=== PATIENT | female | born 1945 | race Caucasian/White ===

== ENCOUNTER 2017-09-19 08:50 | Emergency (ER) | payer MEDICARE ==
[2017-09-19] MEDS ORDERED: SODIUM CHLORIDE 0.9% 1,000 ML IV STA (09:10)
[2017-09-19] MEDS ORDERED: ONDANSETRON 4 MG/2 ML VIAL IVP STA (09:10)
[2017-09-19] MEDS ORDERED: PANTOPRAZOLE 40 MG/10 ML VIAL IVP STA (09:13)
[2017-09-19] MEDS ORDERED: ORPHENADRINE 30 MG/ML 2 ML VIAL IVP STA (09:14)
--- NOTE | 2017-09-19 09:17 | ED ---
Nausea/Vomiting/Diarrhea HPI - General Chief complaint: Nausea/Vomiting/Diarrhea Stated complaint: Fall, Side Pain, Vomiting Time Seen by Provider: 09/19/17 09:01 Source: patient, RN notes reviewed, old records reviewed Mode of arrival: ambulatory Limitations: no limitations - History of Present Illness Initial comments: This is a 71-year-old female presents emergency Department chief complaint of a fall yesterday. Patient reports that she tripped out of her flower garden and landed on her left knee and her left ribs. Patient states that she had pain with movement. Patient was concerned because after the fall she had an episode of brown vomiting. She states that it subsided and had a second episode again today. Patient was concerned if it was associated with the fall. No history of ulcers. She does have history of GERD. Patient states that her pain is towards the left side of her abdomen. She denies any changes in urine or stools. Patient states that the pain is worse with taking a deep breath or chills and hit her left knee and does have some abrasions over the knee. She has no significant pain with ambulation. Patient surgical history includes cholecystectomy. - Related Data Home Medications Medication Instructions Recorded Confirmed Aspirin 81 mg PO DAILY 07/12/13 09/19/17 Cholecalciferol [Vitamin D3] 1,000 unit PO DAILY 07/12/13 09/19/17 Fenofibrate Nanocrystallized 145 mg PO DAILY 07/12/13 09/19/17 [Tricor] Multivitamins, Thera [Multivitamin] 1 tab PO DAILY 07/12/13 09/19/17 Pioglitazone HCl [Actos] 45 mg PO DAILY 07/12/13 09/19/17 Simvastatin [Zocor] 20 mg PO HS 07/12/13 09/19/17 glyBURIDE/METFORMIN HCL 1 tab PO BID 07/12/13 09/19/17 [Glucovance 2.5-500 mg Tablet] Exenatide Microspheres [Bydureon 2 mg SQ MO 09/19/17 09/19/17 Pen] Ranitidine HCl [Zantac] 150 mg PO BID 09/19/17 09/19/17 Previous Rx's Medication Instructions Recorded Ciprofloxacin HCl [Cipro] 500 mg PO Q12HR 10 Days tab 09/19/17 Hydrocodone/Acetaminophen [[place] 1 tab PO Q6HR PRN 3 Days #12 tab 09/19/17 5-325] Ondansetron Odt [Zofran Odt] 4 mg PO Q8HR PRN #12 tab 09/19/17 metroNIDAZOLE [Flagyl] 500 mg PO TID #30 tab 09/19/17 Allergies Allergy/AdvReac Type Severity Reaction Status Date / Time No Known Allergies Allergy Verified 09/19/17 09:26 Review of Systems ROS Statement: Those systems with pertinent positive or pertinent negative responses have been documented in the HPI. ROS Other: All systems not noted in ROS Statement are negative. Past Medical History Past Medical History: Diabetes Mellitus, GERD/Reflux, Hyperlipidemia, Osteoarthritis (OA) History of Any Multi-Drug Resistant Organisms: None Reported Past Surgical History: Cholecystectomy Past Anesthesia/Blood Transfusion Reactions: No Reported Reaction Past Psychological History: No Psychological Hx Reported Smoking Status: Never smoker Past Alcohol Use History: None Reported Past Drug Use History: None Reported - Past Family History Sister(s) Family Medical History: Cancer General Exam - General Exam Comments Initial Comments: This is a 71-year-old female. Alert and oriented. No significant distress. Limitations: no limitations General appearance: alert, in no apparent distress Head exam: Present: atraumatic, normocephalic, normal inspection Eye exam: Present: normal appearance, PERRL, EOMI. Absent: scleral icterus, conjunctival injection, periorbital swelling ENT exam: Present: normal exam, mucous membranes moist Neck exam: Present: normal inspection. Absent: tenderness, meningismus, lymphadenopathy Respiratory exam: Present: normal lung sounds bilaterally. Absent: respiratory distress, wheezes, rales, rhonchi, stridor Cardiovascular Exam: Present: regular rate, normal rhythm, normal heart sounds. Absent: systolic murmur, diastolic murmur, rubs, gallop, clicks GI/Abdominal exam: Present: soft, tenderness (Left upper quadrant tenderness.), normal bowel sounds. Absent: distended, guarding, rebound, rigid Extremities exam: Present: normal inspection, full ROM, normal capillary refill , other (Patient has small abrasion and ecchymosis over the left knee. Full range of motion noted. Normal sensation and pulses distally.). Absent: tenderness, pedal edema, joint swelling, calf tenderness Back exam: Present: normal inspection Neurological exam: Present: alert, oriented X3, CN II-XII intact Psychiatric exam: Present: normal affect, normal mood Skin exam: Present: warm, dry, intact, normal color. Absent: rash Course Vital Signs 09/19/17 09/19/17 08:52 11:58 Temperature 98.1 F 97.8 F Pulse Rate 94 82 Respiratory 18 16 Rate Blood Pressure 179/70 158/60 O2 Sat by Pulse 98 97 Oximetry Medical Decision Making - Medical Decision Making 71-year-old female presents emergency department today complaining of a fall on her left side yesterday. She also states she had an episode of vomiting last night. She reports it seemed to be somewhat dark. No vomiting upon arriving to the emergency department. She complains of some left-sided rib pain and epigastric abdominal pain. She has no evidence of bruising over the abdomen. She doesn't some upper quadrant tenderness. Lab work was obtained and given nausea medicine as well as a muscle relaxer. X-ray shows evidence of a left rib fracture. No evidence of pneumothorax. A mild elevation of her pancreatic enzymes. No previous lab work to compare from. She is to diabetic. Patient was given a CT abdomen and pelvis contrast. There is evidence of some mild diverticulitis. They also made mention of a dilated biliary system however this could be postsurgical recommended correlation with lab studies. Her liver enzymes are within normal limits. The bilirubin was stable. I believe the child ductal dilation is most likely related to postsurgical. I did recommend that she follow up with primary care provider to have her lipase and liver enzymes and pancreatic enzymes rechecked in 48 hours. At this time I will discharge the Patient with pain medication to treat for the mild diverticulitis as well as the rib fracture. Discussed the importance of taking deep breaths to avoid pneumonia. We'll also treat with diverticulitis with Cipro and Flagyl and Zofran. I discussed return parameters. Patient agrees to treatment plan will comply. Return parameters were discussed. Patient left in good spirits. - Lab Data Result diagrams: 09/19/17 09:15 09/19/17 09:15 Lab Results 09/19/17 09/19/17 09/19/17 Range/Units 09:15 09:15 09:15 WBC 6.4 (3.8-10.6) k/uL RBC 4.31 (3.80-5.40) m/uL Hgb 12.8 (11.4-16.0) gm/dL Hct 39.6 (34.0-46.0) % MCV 91.8 (80.0-100.0) fL MCH 29.6 (25.0-35.0) pg MCHC 32.3 (31.0-37.0) g/dL RDW 13.5 (11.5-15.5) % Plt Count 227 (150-450) k/uL Neutrophils % 71 % Lymphocytes % 14 % Monocytes % 8 % Eosinophils % 3 % Basophils % 0 % Neutrophils # 4.6 (1.3-7.7) k/uL Lymphocytes # 0.9 L (1.0-4.8) k/uL Monocytes # 0.5 (0-1.0) k/uL Eosinophils # 0.2 (0-0.7) k/uL Basophils # 0.0 (0-0.2) k/uL Sodium 140 (137-145) mmol/L Potassium 4.5 (3.5-5.1) mmol/L Chloride 101 (98-107) mmol/L Carbon Dioxide 33 H (22-30) mmol/L Anion Gap 6 mmol/L BUN 24 H (7-17) mg/dL Creatinine 1.01 (0.52-1.04) mg/dL Est GFR (CKD-EPI)AfAm 65 (>60 ml/min/1.73 sqM) Est GFR (CKD-EPI)NonAf 57 (>60 ml/min/1.73 sqM) Glucose 124 H (74-99) mg/dL Calcium 13.2 H* (8.4-10.2) mg/dL Total Bilirubin 0.3 (0.2-1.3) mg/dL AST 34 (14-36) U/L ALT 34 (9-52) U/L Alkaline Phosphatase 44 (38-126) U/L Total Protein 6.6 (6.3-8.2) g/dL Albumin 4.0 (3.5-5.0) g/dL Amylase 129 H (30-110) U/L Lipase 409 H (23-300) U/L Urine Color Light Yellow Urine Appearance Cloudy H (Clear) Urine pH 7.5 (5.0-8.0) Ur Specific [place] 1.008 (1.001-1.035) Urine Protein Negative (Negative) Urine Glucose (UA) Negative (Negative) Urine Ketones Negative (Negative) Urine Blood Negative (Negative) Urine Nitrite Negative (Negative) Urine Bilirubin Negative (Negative) Urine Urobilinogen <2.0 (<2.0) mg/dL Ur Leukocyte Esterase Moderate H (Negative) Urine WBC 6 H (0-5) /hpf Ur Squamous Epith Cells <1 (0-4) /hpf Amorphous Sediment Occasional H (None) /hpf Urine Mucus Rare H (None) /hpf - Radiology Data Radiology results: report reviewed Nondisplaced acute fracture of the lateral margin of the sixth rib on the left without adjacent ulnar contusion or pneumothorax.. Colonic diverticulosis very minimal fat stranding in the distal descending colon and sigmoid colon's just and compensated diverticulitis. Mild intrahepatic bili or ductal dilation with extra hepatic biliary ductal dilation most likely postsurgical. However correlation with serum lab values is recommended to exclude radiopaque choledocholithiasis. Disposition Clinical Impression: Rib fracture, Diverticulitis, Elevated lipase, Fall Disposition: HOME SELF-CARE Condition: Good Instructions: Diverticulitis (ED), Rib Fracture (ED) Additional Instructions: Patient advised to take 10 deep breaths an hour due to the rib fracture. Take Motrin and use pain medicine as prescribed. Patient should complete the antibiotic prescription. Follow-up with primary care provider within the next 1 -2 days for reevaluation. Recommended repeating liver enzymes and pancreatic enzymes. Return to the emergency department if any alarming signs or symptoms occur. Prescriptions: Ciprofloxacin HCl [Cipro] 500 mg PO Q12HR 10 Days tab Hydrocodone/Acetaminophen [[place] 5-325] 1 tab PO Q6HR PRN 3 Days #12 tab PRN Reason: Pain metroNIDAZOLE [Flagyl] 500 mg PO TID #30 tab Ondansetron Odt [Zofran Odt] 4 mg PO Q8HR PRN #12 tab PRN Reason: Nausea Is patient prescribed a controlled substance at d/c from ED?: Yes When asked, does pt state using other controlled substances?: Yes If prescribed controlled substance>3 days was MAPS reviewed?: Prescribed <3 Days If opioid is for acute pain is fill amount 7 days or less?: Yes If Rx opioid, was Start Talking consent form obtained?: Yes Referrals: Indra Olsen MD [Primary Care Provider] - 1-2 days Time of Disposition: 12:05
[2017-09-19 09:40] LABS: Basophils % (A) 0 %; Eosinophils # (A) 0.2 k/uL (0-0.7); Eosinophils % (A) 3 %; HCT 39.6 % (34.0-46.0); HGB 12.8 gm/dL (11.4-16.0); Lymphocytes # (A) 0.9 k/uL (1.0-4.8); Lymphocytes % (A) 14 %; MCH 29.6 pg (25.0-35.0); MCHC 32.3 g/dL (31.0-37.0); MCV 91.8 fL (80.0-100.0); Mean Platelet Volume 7.6; Monocytes # (A) 0.5 k/uL (0-1.0); Monocytes % (A) 8 %; Neutrophils # (A) 4.6 k/uL (1.3-7.7); Neutrophils % (A) 71 %; Platelet Count 227 k/uL (150-450); RBC 4.31 m/uL (3.80-5.40); RDW 13.5 % (11.5-15.5); WBC 6.4 k/uL (3.8-10.6)
[2017-09-19 09:51] LABS: Amorphous Sediment,Urine Occasional /hpf; Appearance,Urine Cloudy (Clear); Bilirubin,Urine Negative (Negative); Blood,Urine Negative (Negative); Color,Urine Light Yellow; Glucose,Urine (UA) Negative (Negative); Ketones,Urine Negative (Negative); Leukocyte Esterase,Urine Moderate (Negative); Mucus,Urine Rare /hpf; Nitrite,Urine Negative (Negative); PH, Urine 7.5 (5.0-8.0); Protein,Urine Negative (Negative); Specific Gravity,Urine 1.008 (1.001-1.035); Squamous Epithelial Cell,Urine <1 /hpf (0-4); Urobilinogen,Urine <2.0 mg/dL (<2.0); WBC,Urine 6 /hpf (0-5)
[2017-09-19 09:54] LABS: Potassium 4.5 mmol/L (3.5-5.1); Total Bilirubin 0.3 mg/dL (0.2-1.3); Total Protein 6.6 g/dL (6.3-8.2)
--- NOTE | 2017-09-19 09:56 | XR ---
EXAMINATION TYPE: XR ribs LT w pa chest xray DATE OF EXAM: 09/19/2017 COMPARISON: 05/14/2011 HISTORY: Pain post fall TECHNIQUE: Frontal view the chest and 4 views of the left ribs are submitted. FINDINGS: There is mild prominence of the right hilum. There is no consolidation or pneumothorax. There are slight deformity of the lateral left seventh rib. Hypertrophic change of the spine noted there is atherosclerotic change aorta. Arthropathy of the shou lders seen. Surgical clips in the abdomen. Calcification overlying the left upper quadrant may repres ent a splenic artery aneurysm. IMPRESSION: Findings are suggestive of a rib deformity lateral seventh rib. Hairline fracture in the differential diagnosis correlate clinically.
--- NOTE | 2017-09-19 09:58 | XR ---
EXAMINATION TYPE: XR knee complete LT DATE OF EXAM: 09/19/2017 COMPARISON: NONE HISTORY: Pain TECHNIQUE: Four views are submitted. FINDINGS: There is narrowing of the joint spaces with evidence of chondrocalcinosis. Hypertrophic spurring is n oted and there is a small suprapatellar joint effusion. Osseous structures are intact. No acute frac ture seen. IMPRESSION: 1. No acute fracture or dislocation. 2. Correlate for osteoarthritis.
[2017-09-19 10:01] LABS: Calcium 13.2 mg/dL (8.4-10.2)
[2017-09-19] MEDS ORDERED: SODIUM CHLORIDE 0.9% 1,000 ML IV SCH (10:15)
--- NOTE | 2017-09-19 11:18 | CT ---
EXAMINATION TYPE: CT abdomen pelvis w con DATE OF EXAM: 09/19/2017 HISTORY: Fall, Lt sided pain CT DLP: 1771.0mGycm Automated Exposure Control for Dose Reduction was Utilized. CONTRAST: CT scan of the abdomen and pelvis is performed with IV Contrast, patient injected with 100 mL of Isov ue 300. COMPARISON: None. FINDINGS: LUNG BASES: There is minimal bibasilar subsegmental dependent atelectasis seen. There is a moderate h iatal hernia and herniation of mesenteric fat and vasculature. There is circumferential distal esopha geal mucosal thickening measuring up to 1.0 cm, at least partially related to incomplete distention. LIVER/GB: Very mild intrahepatic biliary ductal dilatation is seen with extrahepatic biliary ductal d ilatation and surgical gallbladder absence. Focal dilatation is likely postoperative correlation with serum laboratory values is recommended to exclude nonradiopaque choledocholithiasis. PANCREAS: No significant abnormality is seen. 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 ADRENALS: No significant abnormality is seen. KIDNEYS: There is a nonobstructing left upper poler 3 mm calculus and too small to accurately charact erize 4 mm left midpole lateral cortical renal lesion. No hydronephrosis bilaterally. BOWEL: Descending duodenal diverticulum is incidentally noted. There are numerous colonic diverticula with very mild pericolonic fat stranding of the descending and sigmoid colon on series 7 image 32. UTERUS/ADNEXA: Numerous calcifications are seen at the distal aspect of the gonadal veins bilaterally , right greater than left with diminutive ovarian residual tissue. Uterine atrophy is also noted. LYMPH NODES: No greater than 1cm abdominal or pelvic lymph nodes are appreciated. OSSEOUS STRUCTURES: There is a nondisplaced acute fracture of the lateral margin of rib 6 on the left . No adjacent pulmonary contusion or pneumothorax is identified in the visualized lungs. Multilevel m oderate degenerative changes of the lumbosacral spine are seen. IMPRESSION: 1. Nondisplaced acute fracture of the lateral margin of rib 6 on the left without adjacent pulmonary contusion or pneumothorax seen. 2. Pancolonic diverticulosis with very minimal fat stranding of the distal descending colon and sigmo id colon suggesting mild uncomplicated diverticulitis. 3. Mild intrahepatic biliary ductal dilatation and extra hepatic biliary ductal dilatation, likely po stsurgical. However correlation with serum laboratory values is recommended to exclude nonradiopaque choledocholithiasis.
[2017-09-19 11:59] VITALS: BP 158/60; PULSE 82; RESP 16; TEMP 97.8
== END 2017-09-19 12:27 | disposition home or self-care (01) ==
LOC: EC 08:50
DX: S22.32XA Fracture of one rib, left side, initial encounter for closed fracture (principal); S80.02XA Contusion of left knee, initial encounter; K57.32 Diverticulitis of large intestine without perforation or abscess without bleeding; R74.8 Abnormal levels of other serum enzymes; E11.9 Type 2 diabetes mellitus without complications; K21.9 Gastro-esophageal reflux disease without esophagitis; E78.5 Hyperlipidemia, unspecified; M19.90 Unspecified osteoarthritis, unspecified site; Z90.49 Acquired absence of other specified parts of digestive tract; Z79.82 Long term (current) use of aspirin; Z79.84 Long term (current) use of oral hypoglycemic drugs; Z79.899 Other long term (current) drug therapy; W01.0XXA Fall on same level from slipping, tripping and stumbling without subsequent striking against object, initial encounter
CPT/HCPCS: 99285; 96374; 96375 ×2; 96361 ×3; 36415; 80053; 82150; 83690; 85025; 81001; 71101; 73562; 74177; J2360; J2405; C9113; Q9967

== ENCOUNTER → 2017-11-20 | Outpatient (CLI) | payer MEDICARE ==
--- NOTE | 2017-11-22 12:56 | MM ---
Reason for exam: screening (asymptomatic). Last mammogram was performed 1 year and 11 months ago. History: Patient is postmenopausal. Took hormonal contraceptives for 5 years. Physical Findings: A clinical breast exam by your physician is recommended on an annual basis and results should be correlated with mammographic findings. MG 3D Screening Mammo W/Cad Bilateral CC and MLO view(s) were taken. Prior study comparison: December 28, 2015, bilateral MG screening mammo w CAD. December 17, 2014, right breast MG 3d work up w/cad RT. There are scattered fibroglandular densities. Focal asymmetry in the right breast, stable. No significant changes when compared with prior studies. ASSESSMENT: Benign, BI-RAD 2 RECOMMENDATION: Routine screening mammogram of both breasts in 1 year.
== END | disposition home or self-care (01) ==
LOC: RADMAMWWP 08:26
PROVIDERS: ATTEND Family Medicine
DX: Z12.31 Encounter for screening mammogram for malignant neoplasm of breast (principal)
CPT/HCPCS: 77063; 77067

== ENCOUNTER 2018-05-29 06:44 | Day surgery (SDC) | payer MEDICARE ==
[2018-05-27 09:45] VITALS: BMI 31.8
[~2018-05-29 06:44] MED LIST: LACTATED RINGERS 1,000 ML IV SCH; LIDOCAINE 1% 20 ML VIAL (10MG/ML) FOR IV START INTRADERMA PRN
[2018-05-29 07:17] VITALS: TEMP 97.2
[2018-05-29 07:27] LABS: Glucose,Whole Blood 92 mg/dL (75-99)
[2018-05-29] MEDS ORDERED: LACTATED RINGERS 1,000 ML IV ONE (07:29)
[2018-05-29] MEDS ORDERED: LIDOCAINE 1% INJ 10MG/ML (20 ML MDV) ONE (07:42)
[2018-05-29] MEDS ORDERED: PROPOFOL 10 MG/ML 20 ML VIAL IV ONE (07:42)
[2018-05-29 08:13] LABS: Glucose,Whole Blood 96 mg/dL (75-99)
[2018-05-29 08:14] VITALS: RESP 16
[2018-05-29 08:34] VITALS: BP 130/70; PULSE 70
--- NOTE | 2018-05-29 08:58 | P.PCN ---
Date of Procedure: 05/29/18 Procedure(s) Performed: Procedure: Colonoscopy and biopsy. Preoperative diagnosis: Change in bowel habits. Postoperative diagnosis: 1. Diffuse diverticulosis with no evidence of acute diverticulitis, strictures, polyps or cancer. 2. Biopsies obtained from the right colon to rule out microscopic colitis. Preparation: HalfLytely prep. Sedation: Was provided by anesthesia. Brief clinical history: The patient is a 72-year-old female who is scheduled for this evaluation because of change in bowel habits. She reported history of irritable bowel syndrome and intermittent diarrhea that seems to be happening now almost daily. She had a prior colonoscopy several years back and she may have had polyps removed. No bleeding or other alarm symptoms. Procedure: With the patient on her left lateral decubitus position and after informed consent and adequate sedation, the perianal area was inspected and it did not show any fissures or fistulas. He were no masses felt on digital rectal examination. The Olympus CFH 190L video colonoscope was then inserted in the rectum in the usual fashion and advanced to the cecum. The preparation was less than ideal and I spent some time cleansing the bowel especially on the right side and cecum. There was diffuse diverticulosis most evident on the left side with larger and more obvious scattered diverticular orifices. The mucosa appeared healthy. No polyps or tumors were seen. I obtained biopsies from the right colon then I retroflexed the endoscope in the rectum before the endoscope was withdrawn. The patient tolerated the procedure well. Plan: The patient was reassured. Discussed dietary measures. We would await biopsy results and make further plans based on her course and biopsy results. I will be happy to see in the office if her symptoms persist. For colon cancer screening consideration can be given for repeat exam in 5 years or so especially in light of her less than ideal preparation today and possible history of polyps in the past. She will follow-up with you as planned.
== END 2018-05-29 09:07 | disposition home or self-care (01) ==
LOC: ORWHC2ENDO 06:44
DX: K57.90 Diverticulosis of intestine, part unspecified, without perforation or abscess without bleeding (principal); E78.5 Hyperlipidemia, unspecified; E11.9 Type 2 diabetes mellitus without complications; K21.9 Gastro-esophageal reflux disease without esophagitis; Z79.84 Long term (current) use of oral hypoglycemic drugs; Z79.82 Long term (current) use of aspirin; Z79.899 Other long term (current) drug therapy
CPT/HCPCS: 88305; 45380; J2001; J2704

== ENCOUNTER → 2019-05-05 | Outpatient (CLI) | payer MEDICARE ==
--- NOTE | 2019-05-06 11:51 | MM ---
Reason for exam: screening (asymptomatic). Last mammogram was performed 1 year and 5 months ago. History: Patient is postmenopausal. Took hormonal contraceptives for 5 years. Physical Findings: A clinical breast exam by your physician is recommended on an annual basis and results should be correlated with mammographic findings. MG Screening Mammo w CAD Bilateral CC and MLO view(s) were taken. Prior study comparison: November 20, 2017, bilateral MG 3d screening mammo w/cad. December 28, 2015, bilateral MG screening mammo w CAD. Benign appearing bilateral calcifications. There is chronic nodularity in the right breast. No significant changes when compared with prior studies. ASSESSMENT: Benign, BI-RAD 2 RECOMMENDATION: Routine screening mammogram of both breasts in 1 year.
== END | disposition home or self-care (01) ==
LOC: RADMAMWWP 11:53
PROVIDERS: ATTEND Family Medicine
DX: Z12.31 Encounter for screening mammogram for malignant neoplasm of breast (principal)
CPT/HCPCS: 77067

== ENCOUNTER 2020-05-21 14:18 | Emergency (ER) | payer MEDICARE ==
--- NOTE | 2020-05-21 16:02 | XR ---
EXAMINATION TYPE: XR chest 2V DATE OF EXAM: 05/21/2020 COMPARISON: 05/14/2011. HISTORY: Shortness of breath. TECHNIQUE: Frontal and lateral views of the chest are obtained. FINDINGS: There are diffuse mild to moderate patchy opacities in the mid to lower lungs bilaterally. No pleural effusion, or pneumothorax seen. The cardiac silhouette size is within normal limits. T he osseous structures are intact. IMPRESSION: Bilateral infiltrates.
--- NOTE | 2020-05-21 16:28 | ED ---
SOB HPI - General Chief Complaint: Shortness of Breath Stated Complaint: Covid+, SOB, weakness Time Seen by Provider: 05/21/20 15:26 Source: patient Mode of arrival: wheelchair Limitations: no limitations - History of Present Illness Initial Comments: Vanda is a 74-year-old female who presents to the ER today for evaluation of persistent COVID symptoms. Patient reports that she began experiencing COVID 9010 days ago. She tested positive earlier in the week. She took steroids and antibiotics as prescribed by her primary care physician but has had continued cough, mild shortness of breath with exertion body aches, generalized weakness and fatigue. Patient was advised by her [facility] physician to come to the ER for further evaluation of persistent symptoms because she was still within the window for treatment with monoclonal antibodies. - Related Data Home Medications Medication Instructions Recorded Confirmed Aspirin 81 mg PO HS 07/12/13 05/27/18 Cholecalciferol [Vitamin D3] 1,000 unit PO DAILY 07/12/13 05/27/18 Fenofibrate Nanocrystallized 145 mg PO DAILY 07/12/13 05/27/18 [Tricor] Pioglitazone HCl [Actos] 45 mg PO DAILY 07/12/13 05/27/18 Simvastatin [Zocor] 20 mg PO HS 07/12/13 05/27/18 glyBURIDE/METFORMIN HCL 1 tab PO BID 07/12/13 05/27/18 [Glucovance 2.5-500 mg Tablet] Exenatide Microspheres [Bydureon 2 mg SQ MO 09/19/17 05/27/18 Pen] Ranitidine HCl [Zantac] 150 mg PO BID 09/19/17 05/27/18 Metoclopramide [Reglan] 5 mg PO TID 05/27/18 05/27/18 Allergies Allergy/AdvReac Type Severity Reaction Status Date / Time No Known Allergies Allergy Verified 05/21/20 14:29 Review of Systems ROS Statement: Those systems with pertinent positive or pertinent negative responses have been documented in the HPI. ROS Other: All systems not noted in ROS Statement are negative. Past Medical History Past Medical History: Diabetes Mellitus, GERD/Reflux, Hyperlipidemia, Osteoarthritis (OA) History of Any Multi-Drug Resistant Organisms: None Reported Past Surgical History: Cholecystectomy Additional Past Surgical History / Comment(s): COLONOSCOPY Past Anesthesia/Blood Transfusion Reactions: No Reported Reaction Past Psychological History: No Psychological Hx Reported Smoking Status: Never smoker Past Alcohol Use History: None Reported Past Drug Use History: None Reported - Past Family History Sister(s) Family Medical History: Cancer General Exam - General Exam Comments Initial Comments: Physical Exam GENERAL: Patient is well-developed and well-nourished. Patient is nontoxic and well-hydrated and is in no distress. HENT: Normocephalic, Atraumatic. EYES: PERRL, EOMI PULMONARY: Unlabored respirations. CARDIOVASCULAR: RRR Warm and well perfused extremities ABDOMEN: Non-distended SKIN: No rashes or bruising : Deferred NEUROLOGIC: Alert and oriented Normal speech Normal gait MUSCULOSKELETAL: Moving all extremities with no apparent injury PSYCHIATRIC: No SI/HI Limitations: no limitations Course Vital Signs 05/21/20 05/21/20 05/21/20 14:25 14:32 17:45 Temperature 98.0 F 98.9 F Pulse Rate 90 91 Respiratory 20 20 18 Rate Blood Pressure 189/79 131/67 O2 Sat by Pulse 94 L 96 Oximetry 05/21/20 05/21/20 05/21/20 18:15 18:31 19:35 Temperature 98.6 F Pulse Rate 88 92 88 Respiratory 20 18 20 Rate Blood Pressure 148/79 141/65 158/86 O2 Sat by Pulse 99 95 95 Oximetry Medical Decision Making - Medical Decision Making The patient was seen and evaluated, history is obtained from the patient Patient is 74-year-old COVID positive Day 10 of symptoms is a candidate for monoclonal antibodies paperwork was reviewed Patient received monoclonal antibody infusion without incident CXR with infiltrates consistent with COVID - no indications for antibiotics Patient will be discharged home to continue supportive care - EKG Data -: EKG Interpreted by Me EKG Comments: EKG was obtained shortness of breath, EKG was obtained at 1434 rate is 89 rhythm is sinus with a leftward axis, normal intervals, MD 152 QRS 80 QTc [address] elevations or depressions no evidence of ischemia or infarction. Disposition Clinical Impression: COVID-19 Disposition: HOME SELF-CARE Condition: Stable Instructions (If sedation given, give patient instructions): Coronavirus Disease 2019 (COVID-19) Is patient prescribed a controlled substance at d/c from ED?: No Referrals: Indra Olsen MD [Primary Care Provider] - 1-2 days
[2020-05-21] MEDS ORDERED: BAMLANIVIMAB 700 MG in SODIUM CHLORIDE 0.9% 50 ML IVPB ONE (17:45)
[2020-05-21 19:55] VITALS: BP 158/86; PULSE 88; RESP 20; TEMP 98.6
== END 2020-05-21 19:35 | disposition home or self-care (01) ==
LOC: EC 14:18
DX: U07.1 COVID-19 (principal); E11.9 Type 2 diabetes mellitus without complications; E78.5 Hyperlipidemia, unspecified; K21.9 Gastro-esophageal reflux disease without esophagitis; M19.90 Unspecified osteoarthritis, unspecified site; Z79.82 Long term (current) use of aspirin; Z79.84 Long term (current) use of oral hypoglycemic drugs
CPT/HCPCS: 71046; 99284; 96374; Q0239

== ENCOUNTER 2020-07-17 22:54 | Observation (INO) | payer MEDICARE ==
[2020-07-17] MEDS ORDERED: SODIUM CHLORIDE 0.9% 500 ML 500 ML IV STA (22:57)
[2020-07-17] MEDS ORDERED: PANTOPRAZOLE 40 MG/10 ML VIAL IVP STA (22:57)
[2020-07-17] MEDS ORDERED: ONDANSETRON 4 MG/2 ML VIAL IVP STA (22:57)
--- NOTE | 2020-07-17 22:58 | ED ---
GI Bleed HPI - General Stated complaint: GI Bleed Time Seen by Provider: 07/17/20 22:57 Source: RN notes reviewed, old records reviewed - History of Present Illness Initial comments: This is a 74-year-old female DF for resents today for evaluation of blood in her stool. Patient believes this is about 5 episodes of blood in the stool prior to arrival. The last episode being just blood. Patient has no abdominal pain no blood thinners not lightheaded or dizzy MD complaint: blood on toilet paper, blood streaked stool -: days(s) Radiation: none Severity scale (1-10): 7 Quality: painless Consistency: constant Improves with: none Worsens with: none Context: history of GI bleed Associated Symptoms: nausea, vomiting, loss of appetite, weakness Treatments Prior to Arrival: none - Related Data Home Medications Medication Instructions Recorded Confirmed Aspirin 81 mg PO HS 07/12/13 07/18/20 Cholecalciferol [Vitamin D3 (25 1,000 unit PO DAILY 07/12/13 07/18/20 Mcg = 1000 Iu)] Fenofibrate Nanocrystallized 145 mg PO HS 07/12/13 07/18/20 [Tricor] Pioglitazone HCl [Actos] 45 mg PO DAILY 07/12/13 07/18/20 Simvastatin [Zocor] 20 mg PO HS 07/12/13 07/18/20 glyBURIDE/METFORMIN HCL 1 tab PO BID 07/12/13 07/18/20 [Glucovance 2.5-500 mg Tablet] Exenatide Microspheres [Bydureon 2 mg SQ MO 09/19/17 07/18/20 Pen] Ascorbic Acid [Vitamin C] 500 mg PO DAILY 07/18/20 07/18/20 Metoclopramide [Reglan] 5 mg PO TID PRN 07/18/20 07/18/20 Multivitamins, Thera [Multivitamin 1 tab PO DAILY 07/18/20 07/18/20 (formulary)] Omeprazole [PriLOSEC] 40 mg PO DAILY 07/18/20 07/18/20 Pyridoxine [Vitamin B-6] 50 mg PO DAILY 07/18/20 07/18/20 Zinc 50 mg PO DAILY 07/18/20 07/18/20 Previous Rx's Medication Instructions Recorded Magnesium Oxide [Mag-Ox] 400 mg PO DAILY #30 tablet 07/20/20 Ferrous Sulfate [Feosol] 325 mg PO BID #60 tab 07/21/20 Allergies Allergy/AdvReac Type Severity Reaction Status Date / Time No Known Allergies Allergy Verified 07/18/20 07:01 Review of Systems ROS Statement: Those systems with pertinent positive or pertinent negative responses have been documented in the HPI. ROS Other: All systems not noted in ROS Statement are negative. Past Medical History Past Medical History: Diabetes Mellitus, GERD/Reflux, Hyperlipidemia, Osteoarthritis (OA) History of Any Multi-Drug Resistant Organisms: None Reported Past Surgical History: Cholecystectomy Additional Past Surgical History / Comment(s): COLONOSCOPY Past Anesthesia/Blood Transfusion Reactions: No Reported Reaction Past Psychological History: No Psychological Hx Reported Smoking Status: Never smoker Past Alcohol Use History: None Reported Past Drug Use History: None Reported - Past Family History Sister(s) Family Medical History: Cancer Father Family Medical History: Coronary Artery Disease (CAD), Diabetes Mellitus Mother Family Medical History: Coronary Artery Disease (CAD), Diabetes Mellitus General Exam General appearance: alert, in no apparent distress Head exam: Present: atraumatic, normocephalic, normal inspection Eye exam: Present: normal appearance, PERRL, EOMI. Absent: scleral icterus, conjunctival injection, periorbital swelling ENT exam: Present: normal exam, mucous membranes moist Neck exam: Present: normal inspection. Absent: tenderness, meningismus, lymphadenopathy Respiratory exam: Present: normal lung sounds bilaterally. Absent: respiratory distress, wheezes, rales, rhonchi, stridor Cardiovascular Exam: Present: regular rate, normal rhythm, normal heart sounds. Absent: systolic murmur, diastolic murmur, rubs, gallop, clicks GI/Abdominal exam: Present: soft, normal bowel sounds. Absent: distended, tenderness, guarding, rebound, rigid Extremities exam: Present: normal inspection, full ROM, normal capillary refill. Absent: tenderness, pedal edema, joint swelling, calf tenderness Back exam: Present: normal inspection Neurological exam: Present: alert, oriented X3, CN II-XII intact Psychiatric exam: Present: normal affect, normal mood Skin exam: Present: warm, dry, intact, normal color. Absent: rash Course Vital Signs 07/17/20 07/18/20 07/18/20 23:00 00:43 03:32 Temperature 98.7 F Pulse Rate 87 82 85 Respiratory 16 16 18 Rate Blood Pressure 157/78 130/67 162/76 O2 Sat by Pulse 98 98 98 Oximetry 07/18/20 07/18/20 07/18/20 05:13 07:58 09:00 Temperature 98.2 F 98.1 F Pulse Rate 85 87 Respiratory 18 18 18 Rate Blood Pressure 141/77 138/68 O2 Sat by Pulse 96 95 Oximetry 07/18/20 11:14 Temperature 98.6 F Pulse Rate 88 Respiratory 18 Rate Blood Pressure 139/68 O2 Sat by Pulse 98 Oximetry - Reevaluation(s) Reevaluation #1: Medical record is reviewed Symptoms improved here significantly in the emergency room Patient informed results and questions answered No recurrent bleeding here in the ER Medical Decision Making - Medical Decision Making 74 female DF for evaluation of lower GI bleeding. Patient will be admitted for trending of hemoglobin - Lab Data Result diagrams: 07/21/20 05:29 07/19/20 08:58 Lab Results 07/17/20 07/17/20 07/17/20 Range/Units 23:41 23:41 23:41 WBC 6.1 (3.8-10.6) k/uL RBC 3.55 L (3.80-5.40) m/uL Hgb 10.8 L (11.4-16.0) gm/dL Hct 33.0 L (34.0-46.0) % MCV 92.9 (80.0-100.0) fL MCH 30.5 (25.0-35.0) pg MCHC 32.9 (31.0-37.0) g/dL RDW 14.2 (11.5-15.5) % Plt Count 216 (150-450) k/uL MPV 8.4 Absolute Nucleated RBC (0.00-0.00) X 10*3/uL Neutrophils % 68 % Lymphocytes % 17 % Monocytes % 7 % Eosinophils % 7 % Basophils % 1 % Neutrophils # 4.1 (1.3-7.7) k/uL Lymphocytes # 1.0 (1.0-4.8) k/uL Monocytes # 0.4 (0-1.0) k/uL Eosinophils # 0.4 (0-0.7) k/uL Basophils # 0.0 (0-0.2) k/uL NRBC/100 WBC Diff (0.0-0.0) /100 WBCS PT 10.9 (9.0-12.0) sec INR 1.0 (<1.2) APTT 20.1 L (22.0-30.0) sec Sodium 136 L (137-145) mmol/L Potassium 4.5 (3.5-5.1) mmol/L Chloride 107 (98-107) mmol/L Carbon Dioxide 22 (22-30) mmol/L Anion Gap 7 mmol/L BUN 16 (7-17) mg/dL Creatinine 0.72 (0.52-1.04) mg/dL Est GFR (CKD-EPI)AfAm >90 (>60 ml/min/1.73 sqM) Est GFR (CKD-EPI)NonAf 84 (>60 ml/min/1.73 sqM) Glucose 315 H (74-99) mg/dL POC Glucose (mg/dL) (75-99) mg/dL POC Glu [employer] Supervisor ID Estimated Ave Glu mg/dL Hemoglobin A1c (4.0-6.0) % Calcium 9.9 (8.4-10.2) mg/dL Magnesium 1.5 L (1.6-2.3) mg/dL Total Bilirubin 0.2 (0.2-1.3) mg/dL AST 26 (14-36) U/L ALT 14 (4-34) U/L Alkaline Phosphatase 82 (38-126) U/L Troponin I (0.000-0.034) ng/mL Total Protein 5.6 L (6.3-8.2) g/dL Albumin 3.2 L (3.5-5.0) g/dL Coronavirus (PCR) (Not Detectd) Blood Type Blood Type Confirm Blood Type Recheck Bld Type Recheck Status Antibody Screen Spec Expiration Date 07/17/20 07/17/20 07/18/20 Range/Units 23:41 23:41 00:31 WBC (3.8-10.6) k/uL RBC (3.80-5.40) m/uL Hgb (11.4-16.0) gm/dL Hct (34.0-46.0) % MCV (80.0-100.0) fL MCH (25.0-35.0) pg MCHC (31.0-37.0) g/dL RDW (11.5-15.5) % Plt Count (150-450) k/uL MPV Absolute Nucleated RBC (0.00-0.00) X 10*3/uL Neutrophils % % Lymphocytes % % Monocytes % % Eosinophils % % Basophils % % Neutrophils # (1.3-7.7) k/uL Lymphocytes # (1.0-4.8) k/uL Monocytes # (0-1.0) k/uL Eosinophils # (0-0.7) k/uL Basophils # (0-0.2) k/uL NRBC/100 WBC Diff (0.0-0.0) /100 WBCS PT (9.0-12.0) sec INR (<1.2) APTT (22.0-30.0) sec Sodium (137-145) mmol/L Potassium (3.5-5.1) mmol/L Chloride (98-107) mmol/L Carbon Dioxide (22-30) mmol/L Anion Gap mmol/L BUN (7-17) mg/dL Creatinine (0.52-1.04) mg/dL Est GFR (CKD-EPI)AfAm (>60 ml/min/1.73 sqM) Est GFR (CKD-EPI)NonAf (>60 ml/min/1.73 sqM) Glucose (74-99) mg/dL POC Glucose (mg/dL) (75-99) mg/dL POC Glu District [employer] Supervisor ID Estimated Ave Glu mg/dL Hemoglobin A1c (4.0-6.0) % Calcium (8.4-10.2) mg/dL Magnesium (1.6-2.3) mg/dL Total Bilirubin (0.2-1.3) mg/dL AST (14-36) U/L ALT (4-34) U/L Alkaline Phosphatase (38-126) U/L Troponin I <0.012 (0.000-0.034) ng/mL Total Protein (6.3-8.2) g/dL Albumin (3.5-5.0) g/dL Coronavirus (PCR) Not Detected (Not Detectd) Blood Type Blood Type Confirm O Negative Blood Type Recheck Bld Type Recheck Status Antibody Screen Spec Expiration Date 07/18/20 07/18/20 07/18/20 Range/Units 00:43 04:25 04:25 WBC 5.02 (3.8-10.6) k/uL RBC 3.04 L (3.80-5.40) m/uL Hgb 9.1 L (11.4-16.0) gm/dL Hct 29.0 L (34.0-46.0) % MCV 95.4 (80.0-100.0) fL MCH 29.9 (25.0-35.0) pg MCHC 31.4 L (31.0-37.0) g/dL RDW 14.0 (11.5-15.5) % Plt Count 186 (150-450) k/uL MPV 11.6 Absolute Nucleated RBC 0 (0.00-0.00) X 10*3/uL Neutrophils % % Lymphocytes % % Monocytes % % Eosinophils % % Basophils % % Neutrophils # (1.3-7.7) k/uL Lymphocytes # (1.0-4.8) k/uL Monocytes # (0-1.0) k/uL Eosinophils # (0-0.7) k/uL Basophils # (0-0.2) k/uL NRBC/100 WBC Diff 0 (0.0-0.0) /100 WBCS PT (9.0-12.0) sec INR (<1.2) APTT (22.0-30.0) sec Sodium (137-145) mmol/L Potassium (3.5-5.1) mmol/L Chloride (98-107) mmol/L Carbon Dioxide (22-30) mmol/L Anion Gap mmol/L BUN (7-17) mg/dL Creatinine (0.52-1.04) mg/dL Est GFR (CKD-EPI)AfAm (>60 ml/min/1.73 sqM) Est GFR (CKD-EPI)NonAf (>60 ml/min/1.73 sqM) Glucose (74-99) mg/dL POC Glucose (mg/dL) (75-99) mg/dL POC Glu [employer] Supervisor ID Estimated Ave Glu mg/dL 174 Hemoglobin A1c 7.7 H (4.0-6.0) % Calcium (8.4-10.2) mg/dL Magnesium (1.6-2.3) mg/dL Total Bilirubin (0.2-1.3) mg/dL AST (14-36) U/L ALT (4-34) U/L Alkaline Phosphatase (38-126) U/L Troponin I (0.000-0.034) ng/mL Total Protein (6.3-8.2) g/dL Albumin (3.5-5.0) g/dL Coronavirus (PCR) (Not Detectd) Blood Type O Negative Blood Type Confirm Blood Type Recheck No Previous Record Bld Type Recheck Status CABO Indicated Antibody Screen NEGATIVE Spec Expiration Date 07/21/2020 - 234207/18/20 07/18/20 07/18/20 Range/Units 04:25 05:04 07:58 WBC (3.8-10.6) k/uL RBC (3.80-5.40) m/uL Hgb (11.4-16.0) gm/dL Hct (34.0-46.0) % MCV (80.0-100.0) fL MCH (25.0-35.0) pg MCHC (31.0-37.0) g/dL RDW (11.5-15.5) % Plt Count (150-450) k/uL MPV Absolute Nucleated RBC (0.00-0.00) X 10*3/uL Neutrophils % % Lymphocytes % % Monocytes % % Eosinophils % % Basophils % % Neutrophils # (1.3-7.7) k/uL Lymphocytes # (1.0-4.8) k/uL Monocytes # (0-1.0) k/uL Eosinophils # (0-0.7) k/uL Basophils # (0-0.2) k/uL NRBC/100 WBC Diff (0.0-0.0) /100 WBCS PT (9.0-12.0) sec INR (<1.2) APTT (22.0-30.0) sec Sodium (137-145) mmol/L Potassium (3.5-5.1) mmol/L Chloride (98-107) mmol/L Carbon Dioxide (22-30) mmol/L Anion Gap mmol/L BUN (7-17) mg/dL Creatinine (0.52-1.04) mg/dL Est GFR (CKD-EPI)AfAm (>60 ml/min/1.73 sqM) Est GFR (CKD-EPI)NonAf (>60 ml/min/1.73 sqM) Glucose (74-99) mg/dL POC Glucose (mg/dL) 218 H 194 H (75-99) mg/dL POC Glu [employer] Supervisor YAQUELIN SuziHalina Ashley [address] Glu mg/dL Hemoglobin A1c (4.0-6.0) % Calcium (8.4-10.2) mg/dL Magnesium 1.4 L (1.6-2.3) mg/dL Total Bilirubin (0.2-1.3) mg/dL AST (14-36) U/L ALT (4-34) U/L Alkaline Phosphatase (38-126) U/L Troponin I (0.000-0.034) ng/mL Total Protein (6.3-8.2) g/dL Albumin (3.5-5.0) g/dL Coronavirus (PCR) (Not Detectd) Blood Type Blood Type Confirm Blood Type Recheck Bld Type Recheck Status Antibody Screen Spec Expiration Date 07/18/20 07/18/20 07/18/20 Range/Units 12:17 14:09 17:17 WBC 5.19 (3.8-10.6) k/uL RBC 3.10 L (3.80-5.40) m/uL Hgb 9.2 L (11.4-16.0) gm/dL Hct 29.9 L (34.0-46.0) % MCV 96.5 (80.0-100.0) fL MCH 29.7 (25.0-35.0) pg MCHC 30.8 L (31.0-37.0) g/dL RDW 14.3 (11.5-15.5) % Plt Count 200 (150-450) k/uL MPV 11.4 Absolute Nucleated RBC 0 (0.00-0.00) X 10*3/uL Neutrophils % % Lymphocytes % % Monocytes % % Eosinophils % % Basophils % % Neutrophils # (1.3-7.7) k/uL Lymphocytes # (1.0-4.8) k/uL Monocytes # (0-1.0) k/uL Eosinophils # (0-0.7) k/uL Basophils # (0-0.2) k/uL NRBC/100 WBC Diff 0 (0.0-0.0) /100 WBCS PT (9.0-12.0) sec INR (<1.2) APTT (22.0-30.0) sec Sodium (137-145) mmol/L Potassium (3.5-5.1) mmol/L Chloride (98-107) mmol/L Carbon Dioxide (22-30) mmol/L Anion Gap mmol/L BUN (7-17) mg/dL Creatinine (0.52-1.04) mg/dL Est GFR (CKD-EPI)AfAm (>60 ml/min/1.73 sqM) Est GFR (CKD-EPI)NonAf (>60 ml/min/1.73 sqM) Glucose (74-99) mg/dL POC Glucose (mg/dL) 149 H 148 H (75-99) mg/dL POC Glu [employer] Supervisor Dianelys Freeman Tiffany [address] Glu mg/dL Hemoglobin A1c (4.0-6.0) % Calcium (8.4-10.2) mg/dL Magnesium (1.6-2.3) mg/dL Total Bilirubin (0.2-1.3) mg/dL AST (14-36) U/L ALT (4-34) U/L Alkaline Phosphatase (38-126) U/L Troponin I (0.000-0.034) ng/mL Total Protein (6.3-8.2) g/dL Albumin (3.5-5.0) g/dL Coronavirus (PCR) (Not Detectd) Blood Type Blood Type Confirm Blood Type Recheck Bld Type Recheck Status Antibody Screen Spec Expiration Date 07/18/20 07/19/20 07/19/20 Range/Units 19:43 02:04 02:22 WBC 5.6 4.4 (3.8-10.6) k/uL RBC 3.11 L 2.86 L (3.80-5.40) m/uL Hgb 9.4 L 8.6 L (11.4-16.0) gm/dL Hct 28.7 L 26.1 L (34.0-46.0) % MCV 92.1 91.2 (80.0-100.0) fL MCH 30.3 30.0 (25.0-35.0) pg MCHC 32.9 32.9 (31.0-37.0) g/dL RDW 14.3 14.3 (11.5-15.5) % Plt Count 191 160 (150-450) k/uL MPV 8.8 10.5 Absolute Nucleated RBC (0.00-0.00) X 10*3/uL Neutrophils % % Lymphocytes % % Monocytes % % Eosinophils % % Basophils % % Neutrophils # (1.3-7.7) k/uL Lymphocytes # (1.0-4.8) k/uL Monocytes # (0-1.0) k/uL Eosinophils # (0-0.7) k/uL Basophils # (0-0.2) k/uL NRBC/100 WBC Diff (0.0-0.0) /100 WBCS PT (9.0-12.0) sec INR (<1.2) APTT (22.0-30.0) sec Sodium (137-145) mmol/L Potassium (3.5-5.1) mmol/L Chloride (98-107) mmol/L Carbon Dioxide (22-30) mmol/L Anion Gap mmol/L BUN (7-17) mg/dL Creatinine (0.52-1.04) mg/dL Est GFR (CKD-EPI)AfAm (>60 ml/min/1.73 sqM) Est GFR (CKD-EPI)NonAf (>60 ml/min/1.73 sqM) Glucose (74-99) mg/dL POC Glucose (mg/dL) 98 (75-99) mg/dL POC Glu [employer] Supervisor ID Geneva Dietz [address] Glu mg/dL Hemoglobin A1c (4.0-6.0) % Calcium (8.4-10.2) mg/dL Magnesium (1.6-2.3) mg/dL Total Bilirubin (0.2-1.3) mg/dL AST (14-36) U/L ALT (4-34) U/L Alkaline Phosphatase (38-126) U/L Troponin I (0.000-0.034) ng/mL Total Protein (6.3-8.2) g/dL Albumin (3.5-5.0) g/dL Coronavirus (PCR) (Not Detectd) Blood Type Blood Type Confirm Blood Type Recheck Bld Type Recheck Status Antibody Screen Spec Expiration Date 07/19/20 07/19/20 07/19/20 Range/Units 07:14 08:58 08:58 WBC 4.1 (3.8-10.6) k/uL RBC 3.08 L (3.80-5.40) m/uL Hgb 9.5 L (11.4-16.0) gm/dL Hct 28.7 L (34.0-46.0) % MCV 93.1 (80.0-100.0) fL MCH 30.9 (25.0-35.0) pg MCHC 33.2 (31.0-37.0) g/dL RDW 14.3 (11.5-15.5) % Plt Count 176 (150-450) k/uL MPV 9.3 Absolute Nucleated RBC (0.00-0.00) X 10*3/uL Neutrophils % % Lymphocytes % % Monocytes % % Eosinophils % % Basophils % % Neutrophils # (1.3-7.7) k/uL Lymphocytes # (1.0-4.8) k/uL Monocytes # (0-1.0) k/uL Eosinophils # (0-0.7) k/uL Basophils # (0-0.2) k/uL NRBC/100 WBC Diff (0.0-0.0) /100 WBCS PT (9.0-12.0) sec INR (<1.2) APTT (22.0-30.0) sec Sodium 138 (137-145) mmol/L Potassium 4.2 (3.5-5.1) mmol/L Chloride 106 (98-107) mmol/L Carbon Dioxide 27 (22-30) mmol/L Anion Gap 5 mmol/L BUN 6 L (7-17) mg/dL Creatinine 0.66 (0.52-1.04) mg/dL Est GFR (CKD-EPI)AfAm >90 (>60 ml/min/1.73 sqM) Est GFR (CKD-EPI)NonAf 88 (>60 ml/min/1.73 sqM) Glucose 175 H (74-99) mg/dL POC Glucose (mg/dL) 120 H (75-99) mg/dL POC Glu [employer] Supervisor ID Stephanie Lopes [address] Glu mg/dL Hemoglobin A1c (4.0-6.0) % Calcium 9.0 (8.4-10.2) mg/dL Magnesium 1.5 L (1.6-2.3) mg/dL Total Bilirubin (0.2-1.3) mg/dL AST (14-36) U/L ALT (4-34) U/L Alkaline Phosphatase (38-126) U/L Troponin I (0.000-0.034) ng/mL Total Protein (6.3-8.2) g/dL Albumin (3.5-5.0) g/dL Coronavirus (PCR) (Not Detectd) Blood Type Blood Type Confirm Blood Type Recheck Bld Type Recheck Status Antibody Screen Spec Expiration Date 07/19/20 07/19/20 07/19/20 Range/Units 11:52 17:28 20:56 WBC (3.8-10.6) k/uL RBC (3.80-5.40) m/uL Hgb (11.4-16.0) gm/dL Hct (34.0-46.0) % MCV (80.0-100.0) fL MCH (25.0-35.0) pg MCHC (31.0-37.0) g/dL RDW (11.5-15.5) % Plt Count (150-450) k/uL MPV Absolute Nucleated RBC (0.00-0.00) X 10*3/uL Neutrophils % % Lymphocytes % % Monocytes % % Eosinophils % % Basophils % % Neutrophils # (1.3-7.7) k/uL Lymphocytes # (1.0-4.8) k/uL Monocytes # (0-1.0) k/uL Eosinophils # (0-0.7) k/uL Basophils # (0-0.2) k/uL NRBC/100 WBC Diff (0.0-0.0) /100 WBCS PT (9.0-12.0) sec INR (<1.2) APTT (22.0-30.0) sec Sodium (137-145) mmol/L Potassium (3.5-5.1) mmol/L Chloride (98-107) mmol/L Carbon Dioxide (22-30) mmol/L Anion Gap mmol/L BUN (7-17) mg/dL Creatinine (0.52-1.04) mg/dL Est GFR (CKD-EPI)AfAm (>60 ml/min/1.73 sqM) Est GFR (CKD-EPI)NonAf (>60 ml/min/1.73 sqM) Glucose (74-99) mg/dL POC Glucose (mg/dL) 164 H 189 H 270 H (75-99) mg/dL POC Glu [employer] Supervisor Stephanie Hartley, Soraida Soni [address] Glu mg/dL Hemoglobin A1c (4.0-6.0) % Calcium (8.4-10.2) mg/dL Magnesium (1.6-2.3) mg/dL Total Bilirubin (0.2-1.3) mg/dL AST (14-36) U/L ALT (4-34) U/L Alkaline Phosphatase (38-126) U/L Troponin I (0.000-0.034) ng/mL Total Protein (6.3-8.2) g/dL Albumin (3.5-5.0) g/dL Coronavirus (PCR) (Not Detectd) Blood Type Blood Type Confirm Blood Type Recheck Bld Type Recheck Status Antibody Screen Spec Expiration Date 07/20/20 07/20/20 07/20/20 Range/Units 05:46 05:46 06:44 WBC 2.8 L (3.8-10.6) k/uL RBC 2.74 L (3.80-5.40) m/uL Hgb 8.4 L (11.4-16.0) gm/dL Hct 25.2 L (34.0-46.0) % MCV 92.0 (80.0-100.0) fL MCH 30.7 (25.0-35.0) pg MCHC 33.3 (31.0-37.0) g/dL RDW 14.2 (11.5-15.5) % Plt Count 164 (150-450) k/uL MPV 8.8 Absolute Nucleated RBC (0.00-0.00) X 10*3/uL Neutrophils % 40 % Lymphocytes % 33 % Monocytes % 10 % Eosinophils % 13 % Basophils % 1 % Neutrophils # 1.1 L (1.3-7.7) k/uL Lymphocytes # 0.9 L (1.0-4.8) k/uL Monocytes # 0.3 (0-1.0) k/uL Eosinophils # 0.4 (0-0.7) k/uL Basophils # 0.0 (0-0.2) k/uL NRBC/100 WBC Diff (0.0-0.0) /100 WBCS PT (9.0-12.0) sec INR (<1.2) APTT (22.0-30.0) sec Sodium (137-145) mmol/L Potassium (3.5-5.1) mmol/L Chloride (98-107) mmol/L Carbon Dioxide (22-30) mmol/L Anion Gap mmol/L BUN (7-17) mg/dL Creatinine (0.52-1.04) mg/dL Est GFR (CKD-EPI)AfAm (>60 ml/min/1.73 sqM) Est GFR (CKD-EPI)NonAf (>60 ml/min/1.73 sqM) Glucose (74-99) mg/dL POC Glucose (mg/dL) 175 H (75-99) mg/dL POC Glu [employer] Supervisor ID Mica Umanzor [address] Glu mg/dL Hemoglobin A1c (4.0-6.0) % Calcium (8.4-10.2) mg/dL Magnesium 1.6 (1.6-2.3) mg/dL Total Bilirubin (0.2-1.3) mg/dL AST (14-36) U/L ALT (4-34) U/L Alkaline Phosphatase (38-126) U/L Troponin I (0.000-0.034) ng/mL Total Protein (6.3-8.2) g/dL Albumin (3.5-5.0) g/dL Coronavirus (PCR) (Not Detectd) Blood Type Blood Type Confirm Blood Type Recheck Bld Type Recheck Status Antibody Screen Spec Expiration Date 07/20/20 07/20/20 Range/Units 10:01 11:13 WBC 3.1 L (3.8-10.6) k/uL RBC 3.11 L (3.80-5.40) m/uL Hgb 9.6 L (11.4-16.0) gm/dL Hct 29.0 L (34.0-46.0) % MCV 93.1 (80.0-100.0) fL MCH 30.9 (25.0-35.0) pg MCHC 33.2 (31.0-37.0) g/dL RDW 14.2 (11.5-15.5) % Plt Count 193 (150-450) k/uL MPV 8.5 Absolute Nucleated RBC (0.00-0.00) X 10*3/uL Neutrophils % % Lymphocytes % % Monocytes % % Eosinophils % % Basophils % % Neutrophils # (1.3-7.7) k/uL Lymphocytes # (1.0-4.8) k/uL Monocytes # (0-1.0) k/uL Eosinophils # (0-0.7) k/uL Basophils # (0-0.2) k/uL NRBC/100 WBC Diff (0.0-0.0) /100 WBCS PT (9.0-12.0) sec INR (<1.2) APTT (22.0-30.0) sec Sodium (137-145) mmol/L Potassium (3.5-5.1) mmol/L Chloride (98-107) mmol/L Carbon Dioxide (22-30) mmol/L Anion Gap mmol/L BUN (7-17) mg/dL Creatinine (0.52-1.04) mg/dL Est GFR (CKD-EPI)AfAm (>60 ml/min/1.73 sqM) Est GFR (CKD-EPI)NonAf (>60 ml/min/1.73 sqM) Glucose (74-99) mg/dL POC Glucose (mg/dL) 332 H (75-99) mg/dL POC Glu [employer] Mica Finnegan Estimated [address] Glu mg/dL Hemoglobin A1c (4.0-6.0) % Calcium (8.4-10.2) mg/dL Magnesium (1.6-2.3) mg/dL Total Bilirubin (0.2-1.3) mg/dL AST (14-36) U/L ALT (4-34) U/L Alkaline Phosphatase (38-126) U/L Troponin I (0.000-0.034) ng/mL Total Protein (6.3-8.2) g/dL Albumin (3.5-5.0) g/dL Coronavirus (PCR) (Not Detectd) Blood Type Blood Type Confirm Blood Type Recheck Bld Type Recheck Status Antibody Screen Spec Expiration Date Disposition Clinical Impression: Lower gastrointestinal hemorrhage Disposition: ADMITTED IP TO THIS HOSP Condition: Stable Is patient prescribed a controlled substance at d/c from ED?: No
[2020-07-18 00:06] LABS: Basophils % (A) 1 %; Eosinophils # (A) 0.4 k/uL (0-0.7); Eosinophils % (A) 7 %; HGB 10.8 gm/dL (11.4-16.0); Lymphocytes % (A) 17 %; MCH 30.5 pg (25.0-35.0); MCHC 32.9 g/dL (31.0-37.0); MCV 92.9 fL (80.0-100.0); Mean Platelet Volume 8.4; Monocytes # (A) 0.4 k/uL (0-1.0); Monocytes % (A) 7 %; Neutrophils # (A) 4.1 k/uL (1.3-7.7); Neutrophils % (A) 68 %; Platelet Count 216 k/uL (150-450); RBC 3.55 m/uL (3.80-5.40); RDW 14.2 % (11.5-15.5); WBC 6.1 k/uL (3.8-10.6)
[2020-07-18 00:15] LABS: Partial Thromboplastin Time 20.1 sec (22.0-30.0); Prothrombin Time 10.9 sec (9.0-12.0)
[2020-07-18 00:16] LABS: ALT 14 U/L (4-34); AST 26 U/L (14-36); African American GFR (CKD) >90 (>60 ml/min/1.73 sqM); Albumin 3.2 g/dL (3.5-5.0); Alkaline Phosphatase 82 U/L (38-126); Anion Gap 7 mmol/L; Blood Urea Nitrogen 16 mg/dL (7-17); Calcium 9.9 mg/dL (8.4-10.2); Carbon Dioxide 22 mmol/L (22-30); Chloride 107 mmol/L (98-107); Glucose 315 mg/dL (74-99); Magnesium 1.5 mg/dL (1.6-2.3); Non-African American GFR(CKD) 84 (>60 ml/min/1.73 sqM); Potassium 4.5 mmol/L (3.5-5.1); Sodium 136 mmol/L (137-145); Total Bilirubin 0.2 mg/dL (0.2-1.3); Total Protein 5.6 g/dL (6.3-8.2)
[2020-07-18] MEDS ORDERED: MORPHINE SULFATE 4 MG/ML SYRINGE IV PRN (00:36)
[2020-07-18] MEDS ORDERED: ONDANSETRON 4 MG/2 ML VIAL IVP PRN (00:36)
[2020-07-18] MEDS: SODIUM CHLORIDE 0.9% 1,000 ML IV SCH ×2 (02:15→15:28)
--- NOTE | 2020-07-18 03:35 | P.HPIM ---
History of Present Illness H&P Date: 07/18/20 Patient is a 74-year-old female with a PMH of type II DM and hemorrhoids who presented to the emergency room with complaints of GI bleeding. The patient endorsed she was in her usual state of health until about 7 PM today when she suddenly developed bloody bowel movements with gross blood and clots. The patient reports having 6-7 bowel movements in quick succession, after which she began to feel lightheaded, at which time her activated EMS. She reports that her symptoms gradually improved after being brought to the emergency room and at time of interview she reported feeling back to her baseline. She denied experiencing abdominal pain or vomiting during these episodes. Also denied chest discomfort, shortness of breath, fever, chills, weakness, numbness, tingling. She reported that her last colonoscopy was 3 years ago and was found to have some polyps but was otherwise unremarkable. In the emergency room, laboratory evaluation revealed a hemoglobin of 10.8, down from 12.8 in 2018. Sodium was 136, glucose 315, magnesium 1.5, troponin less than 0.012. Review of Systems Pertinent positives and negatives as discussed in HPI, a complete review of systems was performed and all other systems are negative. Past Medical History Past Medical History: Diabetes Mellitus, GERD/Reflux, Hyperlipidemia, Osteoart hritis (OA) History of Any Multi-Drug Resistant Organisms: None Reported Past Surgical History: Cholecystectomy Additional Past Surgical History / Comment(s): COLONOSCOPY Past Anesthesia/Blood Transfusion Reactions: No Reported Reaction Past Psychological History: No Psychological Hx Reported Smoking Status: Never smoker Past Alcohol Use History: None Reported Past Drug Use History: None Reported - Past Family History Sister(s) Family Medical History: Cancer Medications and Allergies Home Medications Medication Instructions Recorded Confirmed Type Aspirin 81 mg PO HS 07/12/13 05/27/18 History Cholecalciferol [Vitamin D3] 1,000 unit PO DAILY 07/12/13 05/27/18 History Fenofibrate Nanocrystallized 145 mg PO DAILY 07/12/13 05/27/18 History [Tricor] Pioglitazone HCl [Actos] 45 mg PO DAILY 07/12/13 05/27/18 History Simvastatin [Zocor] 20 mg PO HS 07/12/13 05/27/18 History glyBURIDE/METFORMIN HCL 1 tab PO BID 07/12/13 05/27/18 History [Glucovance 2.5-500 mg Tablet] Exenatide Microspheres [Bydureon 2 mg SQ MO 09/19/17 05/27/18 History Pen] Ranitidine HCl [Zantac] 150 mg PO BID 09/19/17 05/27/18 History Metoclopramide [Reglan] 5 mg PO TID 05/27/18 05/27/18 History Allergies Allergy/AdvReac Type Severity Reaction Status Date / Time No Known Allergies Allergy Verified 07/18/20 00:23 Physical Exam Vitals: Vital Signs Temp Pulse Resp BP Pulse Ox 07/18/20 00:43 82 16 130/67 98 07/17/20 23:00 98.7 F 87 16 157/78 98 Intake and Output 07/17/20 07/17/20 07/18/20 14:59 22:59 06:59 Other: Weight 81.647 kg General: non toxic, no distress, appears at stated age, obese Derm: no unusual rashes/lesions no unusual ecchymoses, warm, dry Head: atraumatic, normocephalic, symmetric Eyes: EOMI, no lid lag, anicteric sclera, pupils equal round reactive to light ENT: Nose and ears atraumatic, no thrush, no pharyngeal erythema Neck: No thyromegaly, no cervical lymphadenopathy, trachea midline, supple Mouth: no lip lesion, mucus membranes moist Cardiovascular: S1S2 reg, no murmur, positive posterior tibial pulse bilateral, no edema, capillary refill less than 2 seconds Lungs: CTA bilateral, no rhonchi, no rales , no accessory muscle use Abdominal: soft, nontender to palpation, no guarding, no appreciable o rganomegaly, normal bowel sounds Ext: no gross muscle atrophy, muscle strength 5 out of 5 in all 4 extremities grossly, no contractures, Neuro: CN II-XI grossly intact, light touch intact all 4 extremities, finger to nose within normal limits, Psych: Alert, oriented, appropriate affect Results CBC & Chem 7: 07/17/20 23:41 07/17/20 23:41 Labs: Abnormal Lab Results - Last 24 Hours (Table) 07/17/20 07/17/20 07/17/20 Range/Units 23:41 23:41 23:41 RBC 3.55 L (3.80-5.40) m/uL Hgb 10.8 L (11.4-16.0) gm/dL Hct 33.0 L (34.0-46.0) % APTT 20.1 L (22.0-30.0) sec Sodium 136 L (137-145) mmol/L Glucose 315 H (74-99) mg/dL Magnesium 1.5 L (1.6-2.3) mg/dL Total Protein 5.6 L (6.3-8.2) g/dL Albumin 3.2 L (3.5-5.0) g/dL Assessment and Plan Plan: Acute blood loss anemia secondary to GI bleeding -Nothing by mouth for now -Monitor CBC -GI consult -Protonix IV Type II DM with hyperglycemia -Hold oral hypoglycemics -Levemir 10 units daily at bedtime -Lispro insulin sliding scale blood glucose monitoring -Check A1c Hypomagnesemia -Replace and monitor DVT prophylaxis -IPCDs The patient is admitted with an anticipated less than 2 midnight stay for evaluation of GIB CODE STATUS: Full Code Discussed with: Patient Anticipated discharge date: in am Anticipated discharge place: Home A total of 35 minutes was spent on the care of this complex patient more than 50% of the time was spent in counseling and care coordination.
[2020-07-18] MEDS: MAGNESIUM SULFATE-D5W PMX 1 GM in DEXTROSE/WATER 1 100ML.BAG IVPB SCH ×2 (05:02→06:21)
[2020-07-18] MEDS: INSULIN DETEMIR (LEVEMIR) 100 UNIT/ML SYR SQ SCH ×2 (05:05→21:22)
[2020-07-18 05:06] LABS: Glucose,Whole Blood 218 mg/dL (75-99)
[2020-07-18 08:01] LABS: Glucose,Whole Blood 194 mg/dL (75-99)
[2020-07-18] MEDS: PANTOPRAZOLE 40 MG/10 ML VIAL IV SCH (08:02)
[2020-07-18] MEDS: INSULIN ASPART (NovoLOG) 100 UNIT/ML VIAL SQ SCH ×4 (08:04→21:28)
[2020-07-18 09:06] LABS: HGB 9.1 g/dL (12.0-15.0); MCH 29.9 pg (27.0-32.0); MCHC 31.4 g/dL (32.0-37.0); MCV 95.4 fL (80.0-97.0); Mean Platelet Volume 11.6 fL (9.5-12.2); Platelet Count 186 X 10*3/uL (140-440); RBC 3.04 X 10*6/uL (4.10-5.20); WBC 5.02 X 10*3/uL (4.50-10.00)
--- NOTE | 2020-07-18 10:44 | CT ---
EXAMINATION TYPE: CT abdomen pelvis w con DATE OF EXAM: 07/18/2020 HISTORY: GI or rectal bleeding with new bilateral upper quadrant and left lower quadrant tenderness CT DLP: 1802.9mGycm Automated Exposure Control for Dose Reduction was Utilized. CONTRAST: CT scan of the abdomen and pelvis is performed without oral but with IV Contrast, patient injected wi th 100ml mL of Isovue 300. COMPARISON: CT abdomen and pelvis September 20, 2019 FINDINGS: LUNG BASES: Fairly moderate bibasilar linear scarring and/or atelectasis with some interval progressi on from 2018 study. Cardiomegaly with dense calcification at level of the mitral valve redemonstrated . LIVER/GB: Cholecystectomy clips redemonstrated. Stable mild extrahepatic biliary dilatation seen best on coronal images with mild left-sided intrahepatic biliary dilatation. No significant change from p rior. Liver remains low dense consistent with diffuse fatty infiltration. PANCREAS: No significant abnormality is seen. 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 ADRENALS: No significant abnormality is seen. KIDNEYS: There is 5 to 6 mm calculus left kidney upper midpole level axial image 29 increased in size from prior. Symmetric cortical uptake and excretion without hydronephrosis seen bilaterally. Subcent imeter thin-walled cyst left kidney image 33 series 301 posteriorly midpole level. BOWEL: There is persistent moderate size hiatal hernia containing fat and portion of stomach retrocar diac region. No suspicious small and large bowel dilatation. Diffuse colonic diverticulosis from cecu m through distal sigmoid colon. No convincing CT evidence for acute diverticulitis. Moderate wall thi ckening near the hepatic flexure is present. No significant surrounding fat stranding. Mild wall thic kening in the left and sigmoid colon. Normal gas-filled appendix. UTERUS/ADNEXA: Anteverted uterus projects to right of midline. Prominent phleboliths along course of the draining ovarian veins bilaterally. No adnexal masses. LYMPH NODES: No greater than 1cm abdominal or pelvic lymph nodes are appreciated. OSSEOUS STRUCTURES: No significant abnormality is seen. OTHER: Mild calcified plaque of the aorta extends into branch vessels. Mariella Soft tissue nodular dens ities suspected injection granulomas in the anterior abdominal wall. IMPRESSION: Significant diffuse colonic diverticulosis without convincing CT evidence for acute diver ticulitis. Areas of mild uncomplicated acute colitis cannot be excluded versus product of poor disten tion. No bowel obstruction.
[2020-07-18 12:18] LABS: Glucose,Whole Blood 149 mg/dL (75-99)
--- NOTE | 2020-07-18 14:00 | P.PN ---
<Geo Esparza - Last Filed: 07/18/20 13:45> Subjective Progress Note Date: 07/18/20 Hospital course: Patient is a 74-year-old female with a past medical history of hyperlipidemia and dln-oihcabt-iomnakeae diabetes mellitus type 2. She presented to the emergency department on 07/17/20 with a chief complaint of abdominal pain and rectal bleeding. She reports around 7 PM the evening of 07/17/20 she suddenly developed a large episode of rectal bleeding with multiple large clots. She reports after this episode she had approximately 6 or 7 episodes rapidly following. Patient denies having any noted stool or diarrhea stating it is bright red/maroon colored blood with multiple large clots. Patient denies experiencing any abdominal pain or cramping during this event, but does report becoming lightheaded which is when her called EMS for transport to the hospital. Patient reports that her last colonoscopy was approximately 3 or 4 years ago and that she has never had any previous issues with GI bleeding. Patient was seen and fully evaluated in the emergency department found to have a hemoglobin of 10.8 and magnesium of 1.5, she was admitted under our services and GI has been consulted. Physical exam: Patient seen and fully evaluated at the bedside. She reports feeling better since arrival and denies any further episode of noted rectal bleeding. Patient currently denies having any headache, lightheadedness, dizziness, chest pain, palpitations, shortness of breath, nausea, vomiting, or any further complaints. Upon assessment, patient was found to have tenderness to right upper quadrant, left upper quadrant, and left lower quadrant in which patient reports since arrival. Order placed for CT abdomen and pelvis with IV contrast.which revealed significant diffuse colonic diverticulosis without convincing CT evidence for acute diverticulitis, areas of mild uncomplicated acute colitis cannot be excluded versus product poor distention. General: non toxic, no distress, appears at stated age Derm: warm, dry Head: atraumatic, normocephalic, symmetric Eyes: EOMI, no lid lag, anicteric sclera Mouth: no lip lesion, mucus membranes moist Cardiovascular: S1S2 reg, no murmur, positive posterior tibial pulse bilateral, Lungs: CTA bilateral, no rhonchi, no rales , no accessory muscle use Abdominal: soft bowel sounds present 4, patient positive for abdominal tenderness upon palpation to right upper quadrant, left upper quadrant, and left lower quadrant., no guarding, no appreciable organomegaly Ext: no gross muscle atrophy, no edema, no contractures Neuro: CN II-XI grossly intact, no focal neuro deficits Psych: Alert, oriented, appropriate affect Plan of care: Abdominal pain and rectal bleeding resulting in acute blood loss anemia -CT abdomen and pelvis with IV contrast revealing significant diffuse colonic diverticulosis without convincing CT evidence for acute diverticulitis, areas of mild uncomplicated acute colitis cannot be excluded versus product poor distention. -Hemoglobin initially 10.8 with repeat of 9.1, will trend every 6 hours and transfuse as needed for hemoglobin less than 7 and/or less than 8 with active bleeding. -Albumin 3.2 and creatinine 0.72. -GI consulted, appreciate further recommendations. -NPO until further cleared by GI. -Protonix 40 mg daily -Continue hydration with IV fluids. Hypomagnesemia -Magnesium 1.4, replaced. -Will continue to monitor with repeat a.m. labs. Diabetes mellitus type 2 -Hold oral glycemic medications and place patient on glycemic protocol with low- dose NovoLog sliding scale and Levemir 10 units nightly. Hyperlipidemia -Continue daily medication regimen with atorvastatin 10 mg nightly. CODE STATUS: Full code DVT prophylaxis: STDs Discussed with: Patient and RN Anticipated discharge date: Clinical course to determine Anticipated discharge place: Home A total of 45 minutes was spent on the care of this complex patient more than 50% of the time was spent in counseling and care coordination. Objective - Vital Signs Vital signs: Vital Signs Temp 98.1 F 07/18/20 07:58 Pulse 87 07/18/20 07:58 Resp 18 07/18/20 07:58 BP 138/68 07/18/20 07:58 Pulse Ox 95 07/18/20 07:58 Intake & Output 07/17/20 07/18/20 07/18/20 18:59 06:59 18:59 Weight 81.647 kg - Labs CBC & Chem 7: 07/18/20 04:25 07/17/20 23:41 Labs: Abnormal Lab Results - Last 24 Hours (Table) 07/17/20 07/17/20 07/17/20 Range/Units 23:41 23:41 23:41 RBC 3.55 L (3.80-5.40) m/uL Hgb 10.8 L (11.4-16.0) gm/dL Hct 33.0 L (34.0-46.0) % APTT 20.1 L (22.0-30.0) sec Sodium 136 L (137-145) mmol/L Glucose 315 H (74-99) mg/dL POC Glucose (mg/dL) (75-99) mg/dL Magnesium 1.5 L (1.6-2.3) mg/dL Total Protein 5.6 L (6.3-8.2) g/dL Albumin 3.2 L (3.5-5.0) g/dL 07/18/20 07/18/20 Range/Units 05:04 07:58 RBC (3.80-5.40) m/uL Hgb (11.4-16.0) gm/dL Hct (34.0-46.0) % APTT (22.0-30.0) sec Sodium (137-145) mmol/L Glucose (74-99) mg/dL POC Glucose (mg/dL) 218 H 194 H (75-99) mg/dL Magnesium (1.6-2.3) mg/dL Total Protein (6.3-8.2) g/dL Albumin (3.5-5.0) g/dL <Beau Fairchild - Last Filed: 07/18/20 17:25> Objective - Vital Signs Vital signs: Vital Signs Temp 98.1 F 07/18/20 14:20 Pulse 91 07/18/20 14:20 Resp 16 07/18/20 14:20 BP 159/71 07/18/20 14:20 Pulse Ox 97 07/18/20 14:20 Intake & Output 07/17/20 07/18/20 07/18/20 18:59 06:59 18:59 Intake Total 222 Balance 222 Weight 81.647 kg 81.647 kg Intake: Oral 222 Other: Voiding Method Toilet # Voids 3 - Labs CBC & Chem 7: 07/18/20 04:25 07/17/20 23:41 Labs: Abnormal Lab Results - Last 24 Hours (Table) 07/17/20 07/17/20 07/17/20 Range/Units 23:41 23:41 23:41 RBC 3.55 L (3.80-5.40) m/uL Hgb 10.8 L (11.4-16.0) gm/dL Hct 33.0 L (34.0-46.0) % MCHC (32.0-37.0) g/dL APTT 20.1 L (22.0-30.0) sec Sodium 136 L (137-145) mmol/L Glucose 315 H (74-99) mg/dL POC Glucose (mg/dL) (75-99) mg/dL Hemoglobin A1c (4.0-6.0) % Magnesium 1.5 L (1.6-2.3) mg/dL Total Protein 5.6 L (6.3-8.2) g/dL Albumin 3.2 L (3.5-5.0) g/dL 07/18/20 07/18/20 07/18/20 Range/Units 04:25 04:25 04:25 RBC 3.04 L (3.80-5.40) m/uL Hgb 9.1 L (11.4-16.0) gm/dL Hct 29.0 L (34.0-46.0) % MCHC 31.4 L (32.0-37.0) g/dL APTT (22.0-30.0) sec Sodium (137-145) mmol/L Glucose (74-99) mg/dL POC Glucose (mg/dL) (75-99) mg/dL Hemoglobin A1c 7.7 H (4.0-6.0) % Magnesium 1.4 L (1.6-2.3) mg/dL Total Protein (6.3-8.2) g/dL Albumin (3.5-5.0) g/dL 07/18/20 07/18/20 07/18/20 Range/Units 05:04 07:58 12:17 RBC (3.80-5.40) m/uL Hgb (11.4-16.0) gm/dL Hct (34.0-46.0) % MCHC (32.0-37.0) g/dL APTT (22.0-30.0) sec Sodium (137-145) mmol/L Glucose (74-99) mg/dL POC Glucose (mg/dL) 218 H 194 H 149 H (75-99) mg/dL Hemoglobin A1c (4.0-6.0) % Magnesium (1.6-2.3) mg/dL Total Protein (6.3-8.2) g/dL Albumin (3.5-5.0) g/dL 07/18/20 Range/Units 17:17 RBC (3.80-5.40) m/uL Hgb (11.4-16.0) gm/dL Hct (34.0-46.0) % MCHC (32.0-37.0) g/dL APTT (22.0-30.0) sec Sodium (137-145) mmol/L Glucose (74-99) mg/dL POC Glucose (mg/dL) 148 H (75-99) mg/dL Hemoglobin A1c (4.0-6.0) % Magnesium (1.6-2.3) mg/dL Total Protein (6.3-8.2) g/dL Albumin (3.5-5.0) g/dL Assessment and Plan Assessment: I reviewed the documentation as provided by the CRYSTAL above, who is the original author of this note. I agree with the documented assessment and plan, with the following changes: None
[2020-07-18] MEDS ORDERED: MAGNESIUM SULFATE-D5W PMX 1 GM in DEXTROSE/WATER 1 100ML.BAG IVPB ONE (14:30)
--- NOTE | 2020-07-18 16:41 | CONS ---
CONSULTATION DATE OF DICTATION: 07/18/2020 REASON FOR CONSULTATION: Acute lower GI bleed. HISTORY OF PRESENT ILLNESS: The patient is a 74-year-old pleasant white female admitted to the hospital with acute onset of multiple episodes of bright red blood per rectum that started around at 5 p.m. yesterday. She she had at least 7 or 8 episodes. By 10:30 p.m. last night she became somewhat diaphoretic, dizzy and hence came into the emergency room and subsequently was admitted to the hospital for further management. Her initial hemoglobin was 9.4 and subsequently dropped to 8.3 g/dL. She is feeling much better today. She denies any abdominal pain. No nausea. No vomiting. She had a colonoscopy by Dr. Sharif in 2019 and was noted to have diverticulosis. She never had these symptoms in the past. Denies any recent NSAID use. PAST MEDICAL HISTORY: Significant for diabetes mellitus, hypertension, hyperlipidemia, gastroesophageal reflux disease. PAST SURGICAL HISTORY: Cholecystectomy, colonoscopy 2019. MEDICATIONS: Medications at home include aspirin, vitamin D3, Tricor, Actos, Zocor, metformin, Zantac, Reglan. ALLERGIES: NONE. SOCIAL HISTORY: No smoking. No alcohol use. FAMILY HISTORY: Sister had some kind of cancer. REVIEW OF SYSTEMS: CARDIOPULMONARY: No chest pain or shortness of breath. GENITOURINARY: No dysuria or hematuria. MUSCULOSKELETAL: Unremarkable. SKIN: Unremarkable. ENDOCRINE: Unremarkable. PSYCHIATRIC: Unremarkable. NEUROLOGY: Unremarkable. ENT/VISION: Unremarkable. CONSTITUTIONAL: No recent weight loss. No fever, chills, night sweats. PHYSICAL EXAMINATION: She appears comfortable. No apparent distress. VITAL SIGNS: Stable. Blood pressure is 159/71, pulse rate 91, temperature 98.1. HEENT examination unremarkable. Conjunctivae pink. Sclerae anicteric. Oral cavity no lesions. NECK: No JVD or lymph node enlargement. CHEST: Clear to auscultation. HEART: Regular rate and rhythm. ABDOMEN: Soft. Bowel sounds are positive. No organomegaly. EXTREMITIES: No pedal edema. NEUROLOGIC: Alert and oriented x3. No focal deficits. LABS: WBC 6.1, hemoglobin 10.8, and it is down to 9.1 g/dL. BUN and creatinine are within normal limits. PT/INR is normal. Coronavirus PCR is negative. CT of the abdomen and pelvis done late last night did reveal evidence of sigmoid diverticulosis with no evidence of diverticulitis. IMPRESSION: Acute lower gastrointestinal bleed, possibly diverticular in nature. Patient presented with multiple episodes of bright red blood per rectum that started around 6 p.m. yesterday. She had at least 6 or 7 episodes with clots. Her hemoglobin dropped from 10 to 9.1 g/dL. and hemodynamically stable. She had no further bleeding for the last 12-hour period. Her last colonoscopy by Dr. Sharif was in 2019. RECOMMENDATIONS: 1. Continue with a clear liquid diet. 2. Monitor CBC q.8 hours and transfuse if the hemoglobin is less than 7. 3. Will hold off on any endoscopic intervention at the present time, as it appears that we are dealing with a diverticular bleed which may have already subsided. We will monitor her closely. If she remains stable, she can be discharged home tomorrow with outpatient followup in 2 weeks. Thank you for this consultation. MMTYLERL / IJN: [id number] /
[2020-07-18 17:19] LABS: Glucose,Whole Blood 148 mg/dL (75-99)
[2020-07-18 19:13] LABS: HCT 29.9 % (37.2-46.3); HGB 9.2 g/dL (12.0-15.0); MCH 29.7 pg (27.0-32.0); MCHC 30.8 g/dL (32.0-37.0); MCV 96.5 fL (80.0-97.0); Mean Platelet Volume 11.4 fL (9.5-12.2); Platelet Count 200 X 10*3/uL (140-440); RDW 14.3 % (11.5-14.5); WBC 5.19 X 10*3/uL (4.50-10.00)
[2020-07-18 20:34] LABS: HCT 28.7 % (34.0-46.0); HGB 9.4 gm/dL (11.4-16.0); MCH 30.3 pg (25.0-35.0); MCHC 32.9 g/dL (31.0-37.0); MCV 92.1 fL (80.0-100.0); Mean Platelet Volume 8.8; Platelet Count 191 k/uL (150-450); RBC 3.11 m/uL (3.80-5.40); RDW 14.3 % (11.5-15.5); WBC 5.6 k/uL (3.8-10.6)
[2020-07-18] MEDS: ACETAMINOPHEN TAB 325 MG TAB PO PRN (21:22)
[2020-07-18] MEDS: FENOFIBRATE 160 MG TAB PO SCH (21:22)
[2020-07-18] MEDS: ATORVASTATIN 10 MG TAB PO SCH (21:22)
[2020-07-19 02:16] LABS: HCT 26.1 % (34.0-46.0); HGB 8.6 gm/dL (11.4-16.0); MCHC 32.9 g/dL (31.0-37.0); MCV 91.2 fL (80.0-100.0); Mean Platelet Volume 10.5; Platelet Count 160 k/uL (150-450); RBC 2.86 m/uL (3.80-5.40); RDW 14.3 % (11.5-15.5); WBC 4.4 k/uL (3.8-10.6)
[2020-07-19 02:24] LABS: Glucose,Whole Blood 98 mg/dL (75-99)
[2020-07-19 07:15] LABS: Glucose,Whole Blood 120 mg/dL (75-99)
[2020-07-19] MEDS: SODIUM CHLORIDE 0.9% 1,000 ML IV SCH ×2 (07:47→18:14)
[2020-07-19] MEDS: INSULIN ASPART (NovoLOG) 100 UNIT/ML VIAL SQ SCH ×5 (07:47→21:40)
[2020-07-19] MEDS: PANTOPRAZOLE 40 MG/10 ML VIAL IV SCH (07:48)
[2020-07-19] MEDS: MULTIVITAMINS, THERA 1 EACH TAB PO SCH (07:49)
[2020-07-19] MEDS: CHOLECALCIFEROL 25 MCG (1000 IU) TABLET PO SCH (07:49)
[2020-07-19] MEDS: ASCORBIC ACID 500 MG TAB PO SCH (07:49)
[2020-07-19] MEDS: ZINC SULFATE 220 MG CAP PO SCH (07:49)
[2020-07-19] MEDS: PYRIDOXINE 50 MG TAB PO SCH (07:49)
[2020-07-19 09:20] LABS: HCT 28.7 % (34.0-46.0); HGB 9.5 gm/dL (11.4-16.0); MCH 30.9 pg (25.0-35.0); MCHC 33.2 g/dL (31.0-37.0); MCV 93.1 fL (80.0-100.0); Mean Platelet Volume 9.3; Platelet Count 176 k/uL (150-450); RBC 3.08 m/uL (3.80-5.40); RDW 14.3 % (11.5-15.5); WBC 4.1 k/uL (3.8-10.6)
[2020-07-19 09:33] LABS: African American GFR (CKD) >90 (>60 ml/min/1.73 sqM); Anion Gap 5 mmol/L; Blood Urea Nitrogen 6 mg/dL (7-17); Carbon Dioxide 27 mmol/L (22-30); Chloride 106 mmol/L (98-107); Glucose 175 mg/dL (74-99); Magnesium 1.5 mg/dL (1.6-2.3); Non-African American GFR(CKD) 88 (>60 ml/min/1.73 sqM); Sodium 138 mmol/L (137-145)
[2020-07-19 09:34] LABS: Potassium 4.2 mmol/L (3.5-5.1)
[2020-07-19 11:54] LABS: Glucose,Whole Blood 164 mg/dL (75-99)
[2020-07-19] MEDS: MAGNESIUM SULFATE-D5W PMX 1 GM in DEXTROSE/WATER 1 100ML.BAG IVPB SCH ×3 (14:00→16:14)
--- NOTE | 2020-07-19 14:57 | P.PN ---
Subjective Progress Note Date: 07/19/20 Principal diagnosis: Acute lower GI bleed This 74-year-old white female who was admitted to the hospital yesterday with acute onset of multiple episodes of bright red blood per rectum that started around 7 PM Saturday evening. She states she had recently episodes and by 10:30 she became somewhat diaphoretic, dizzy, weak, and nauseous therefore she presented to the emergency room for further evaluation. She had a colonoscopy in 2019 was noted to have diverticulosis, however has never had those symptoms in the past. She had a CT of the abdomen and pelvis that was significant for diffuse colonic diverticulosis without convincing CT evidence for acute diverticulitis. There is a mild uncomplicated acute colitis cannot be excluded. No bowel obstruction noted. Today she seen and examined states she is feeling better however she did have one further episode yesterday evening of blood per rectum. She also states she has had a long history of loose bowel movements with nightly abdominal cramping, states she was told that she had IBS however never treated or further discuss. Objective - Vital Signs Vital signs: Vital Signs Temp 97.5 F L 07/19/20 07:00 Pulse 78 07/19/20 07:00 Resp 16 07/19/20 07:00 BP 131/58 07/19/20 07:00 Pulse Ox 95 07/19/20 07:00 Intake & Output 07/18/20 07/19/20 07/19/20 18:59 06:59 18:59 Intake Total 722 1150 Output Total 4 Balance 722 1146 Weight 81.647 kg Intake: Intake, IV Titration 900 Amount Sodium Chloride 0.9% 1, 900 000 ml @ 75 mls/hr IV . [id number] [facility] Rx#:[id number] Oral 722 250 Output: Urine/Stool Mix 4 Other: Voiding Method Toilet Toilet # Voids 3 3 - Exam General appearance: The patient is alert, oriented, appears in no acute distress. HET: Head is normocephalic and atraumatic. Conjunctiva pink. Sclera anicteric. Neck: Supple without lymphadenopathy. Abdomen: Soft, lower abdominal tenderness, nondistended with bowel sounds. No guarding or rigidity. Extremities: Normal skin color and turgor. No pedal edema Skin: No rashes, no jaundice Neurological: No focal deficits. Alert and oriented 3. - Labs CBC & Chem 7: 07/19/20 08:58 07/19/20 08:58 Labs: Abnormal Lab Results - Last 24 Hours (Table) 07/18/20 07/18/20 07/18/20 Range/Units 04:25 12:17 14:09 RBC 3.10 L (4.10-5.20) X 10*6/uL Hgb 9.2 L (12.0-15.0) g/dL Hct 29.9 L (37.2-46.3) % MCHC 30.8 L (32.0-37.0) g/dL BUN (7-17) mg/dL Glucose (74-99) mg/dL POC Glucose (mg/dL) 149 H (75-99) mg/dL Hemoglobin A1c 7.7 H (4.0-6.0) % Magnesium (1.6-2.3) mg/dL 07/18/20 07/18/20 07/19/20 Range/Units 17:17 19:43 02:04 RBC 3.11 L 2.86 L (4.10-5.20) X 10*6/uL Hgb 9.4 L 8.6 L (12.0-15.0) g/dL Hct 28.7 L 26.1 L (37.2-46.3) % MCHC (32.0-37.0) g/dL BUN (7-17) mg/dL Glucose (74-99) mg/dL POC Glucose (mg/dL) 148 H (75-99) mg/dL Hemoglobin A1c (4.0-6.0) % Magnesium (1.6-2.3) mg/dL 07/19/20 07/19/20 07/19/20 Range/Units 07:14 08:58 08:58 RBC 3.08 L (4.10-5.20) X 10*6/uL Hgb 9.5 L (12.0-15.0) g/dL Hct 28.7 L (37.2-46.3) % MCHC (32.0-37.0) g/dL BUN 6 L (7-17) mg/dL Glucose 175 H (74-99) mg/dL POC Glucose (mg/dL) 120 H (75-99) mg/dL Hemoglobin A1c (4.0-6.0) % Magnesium 1.5 L (1.6-2.3) mg/dL Assessment and Plan (1) Lower GI bleed Narrative/Plan: This is 74-year-old female who presented to the hospital with complaints of an acute lower GI bleed with multiple episodes of bright red blood per rectum that started Saturday evening with at least 6-7 episodes of clots. She was noted to have a drop in her hemoglobin. She is underwent a colonoscopy in [address] Portillo that was noted to have sigmoid diverticulosis. CT of the abdomen also show sigmoid diverticulosis without any evidence of diverticulitis or bowel obstruction. Possible etiologies include diverticular bleed, infectious, inflammatory, or ischemic colitis. Likely we are dealing with a diverticular bleed with patient's known history of diverticulosis. No plans at this time for any endoscopic evaluation unless further episodes of bleeding or drop in hemoglobin. Current Visit: Yes Status: Acute Code(s): K92.2 - GASTROINTESTINAL HEMORRHAGE, UNSPECIFIED SNOMED Code(s): 50595894 Plan: 1. Increase to full liquid diet 2. Daily CBC 3. Continue to monitor for signs and symptoms of GI bleed 4. No plans at this time for any endoscopic evaluation as we are likely dealing with a diverticular bleed. If no further signs or symptoms of GI bleed patient may be discharged home later today or tomorrow with follow-up in 2 weeks with gastroenterology. Thank you for this consultation, we will continue to follow Dr. Rosina Geogres I agree with the dictator's note, documented as a scribe by Lala House.
--- NOTE | 2020-07-19 17:13 | P.PN ---
<Geo Esparza - Last Filed: 07/19/20 16:51> Subjective Progress Note Date: 07/19/20 Hospital course: Patient is a 74-year-old female with a past medical history of hyperlipidemia and seh-kkefqfa-tgkqqojgo diabetes mellitus type 2. She presented to the emergency department on 07/17/20 with a chief complaint of abdominal pain and rectal bleeding. She reports around 7 PM the evening of 07/17/20 she suddenly developed a large episode of rectal bleeding with multiple large clots. She reports after this episode she had approximately 6 or 7 episodes rapidly following. Patient denies having any noted stool or diarrhea stating it is bright red/maroon colored blood with multiple large clots. Patient denies experiencing any abdominal pain or cramping during this event, but does report becoming lightheaded which is when her called EMS for transport to the hospital. Patient reports that her last colonoscopy was approximately 3 or 4 years ago and that she has never had any previous issues with GI bleeding. Patient was seen and fully evaluated in the emergency department found to have a hemoglobin of 10.8 and magnesium of 1.5, she was admitted under our services and GI has been consulted. Physical exam: Patient seen and fully evaluated at the bedside. She reports feeling better and continues to deny having any further episodes of rectal bleeding since arrival. Patient currently denies having any headache, lightheadedness, dizziness, chest pain, palpitations, shortness of breath, nausea, or vomiting. She states resolution of abdominal pain and has tolerated a clear liquid diet. General: non toxic, no distress, appears at stated age Derm: warm, dry Head: atraumatic, normocephalic, symmetric Eyes: EOMI, no lid lag, anicteric sclera Mouth: no lip lesion, mucus membranes moist Cardiovascular: S1S2 reg, no murmur, positive posterior tibial pulse bilateral, Lungs: CTA bilateral, no rhonchi, no rales , no accessory muscle use Abdominal: soft bowel sounds present 4, patient positive for abdominal tenderness upon palpation to right upper quadrant, left upper quadrant, and left lower quadrant., no guarding, no appreciable organomegaly Ext: no gross muscle atrophy, no edema, no contractures Neuro: CN II-XI grossly intact, no focal neuro deficits Psych: Alert, oriented, appropriate affect Plan of care: Abdominal pain and rectal bleeding resulting in acute blood loss anemia -CT abdomen and pelvis with IV contrast revealing significant diffuse colonic diverticulosis without convincing CT evidence for acute diverticulitis, areas of mild uncomplicated acute colitis cannot be excluded versus product poor distention. -Monitor hemoglobin and transfuse as needed for hemoglobin less than 7 and/or less than 8 with active bleeding. -GI consulted, appreciate further recommendations. -Patient advanced to a full liquid diet and if tolerates may be advanced a heart healthy diet with dinner. -Protonix 40 mg daily -Continue hydration with IV fluids. Hypomagnesemia -Magnesium 1.5, replaced. -Will continue to monitor with repeat a.m. labs. Diabetes mellitus type 2 -Hold oral glycemic medications and place patient on glycemic protocol with low- dose NovoLog sliding scale and Levemir 10 units nightly. Hyperlipidemia -Continue daily medication regimen with atorvastatin 10 mg nightly. CODE STATUS: Full code DVT prophylaxis: SCDs Discussed with: Patient and RN Anticipated discharge date: Likely tomorrow Anticipated discharge place: Home A total of 45 minutes was spent on the care of this complex patient more than 50% of the time was spent in counseling and care coordination. Objective - Vital Signs Vital signs: Vital Signs Temp 98.3 F 07/19/20 14:06 Pulse 84 07/19/20 14:06 Resp 16 07/19/20 14:06 BP 130/62 07/19/20 14:06 Pulse Ox 95 07/19/20 14:06 Intake & Output 07/18/20 07/19/20 07/19/20 18:59 06:59 18:59 Intake Total 722 1150 1580 Output Total 4 Balance 722 1146 1580 Weight 81.647 kg Intake: Intake, IV Titration 900 Amount Sodium Chloride 0.9% 1, 900 000 ml @ 75 mls/hr IV . [id number] [facility] Rx#:[id number] Oral 911 865 1950 Output: Urine/Stool Mix 4 Other: Voiding Method Toilet Toilet # Voids 3 4 # Bowel Movements 2 - Labs CBC & Chem 7: 07/19/20 08:58 07/19/20 08:58 Labs: Abnormal Lab Results - Last 24 Hours (Table) 07/18/20 07/18/20 07/18/20 Range/Units 14:09 17:17 19:43 RBC 3.10 L 3.11 L (4.10-5.20) X 10*6/uL Hgb 9.2 L 9.4 L (12.0-15.0) g/dL Hct 29.9 L 28.7 L (37.2-46.3) % MCHC 30.8 L (32.0-37.0) g/dL BUN (7-17) mg/dL Glucose (74-99) mg/dL POC Glucose (mg/dL) 148 H (75-99) mg/dL Magnesium (1.6-2.3) mg/dL 07/19/20 07/19/20 07/19/20 Range/Units 02:04 07:14 08:58 RBC 2.86 L 3.08 L (4.10-5.20) X 10*6/uL Hgb 8.6 L 9.5 L (12.0-15.0) g/dL Hct 26.1 L 28.7 L (37.2-46.3) % MCHC (32.0-37.0) g/dL BUN (7-17) mg/dL Glucose (74-99) mg/dL POC Glucose (mg/dL) 120 H (75-99) mg/dL Magnesium (1.6-2.3) mg/dL 07/19/20 07/19/20 Range/Units 08:58 11:52 RBC (4.10-5.20) X 10*6/uL Hgb (12.0-15.0) g/dL Hct (37.2-46.3) % MCHC (32.0-37.0) g/dL BUN 6 L (7-17) mg/dL Glucose 175 H (74-99) mg/dL POC Glucose (mg/dL) 164 H (75-99) mg/dL Magnesium 1.5 L (1.6-2.3) mg/dL <Gurinder,Beau - Last Filed: 07/19/20 18:51> Objective - Vital Signs Vital signs: Vital Signs Temp 98.3 F 07/19/20 14:06 Pulse 84 07/19/20 14:06 Resp 16 07/19/20 14:06 BP 130/62 07/19/20 14:06 Pulse Ox 95 07/19/20 14:06 Intake & Output 07/18/20 07/19/20 07/19/20 18:59 06:59 18:59 Intake Total 722 1150 1880 Output Total 4 Balance 722 1146 1880 Weight 81.647 kg Intake: Intake, IV Titration 900 Amount Sodium Chloride 0.9% 1, 900 000 ml @ 75 mls/hr IV . [id number] [facility] Rx#:[id number] Oral 253 161 6311 Output: Urine/Stool Mix 4 Other: Voiding Method Toilet Toilet # Voids 3 4 # Bowel Movements 2 - Labs CBC & Chem 7: 07/19/20 08:58 07/19/20 08:58 Labs: Abnormal Lab Results - Last 24 Hours (Table) 07/18/20 07/18/20 07/19/20 Range/Units 14:09 19:43 02:04 RBC 3.10 L 3.11 L 2.86 L (4.10-5.20) X 10*6/uL Hgb 9.2 L 9.4 L 8.6 L (12.0-15.0) g/dL Hct 29.9 L 28.7 L 26.1 L (37.2-46.3) % MCHC 30.8 L (32.0-37.0) g/dL BUN (7-17) mg/dL Glucose (74-99) mg/dL POC Glucose (mg/dL) (75-99) mg/dL Magnesium (1.6-2.3) mg/dL 07/19/20 07/19/20 07/19/20 Range/Units 07:14 08:58 08:58 RBC 3.08 L (4.10-5.20) X 10*6/uL Hgb 9.5 L (12.0-15.0) g/dL Hct 28.7 L (37.2-46.3) % MCHC (32.0-37.0) g/dL BUN 6 L (7-17) mg/dL Glucose 175 H (74-99) mg/dL POC Glucose (mg/dL) 120 H (75-99) mg/dL Magnesium 1.5 L (1.6-2.3) mg/dL 07/19/20 07/19/20 Range/Units 11:52 17:28 RBC (4.10-5.20) X 10*6/uL Hgb (12.0-15.0) g/dL Hct (37.2-46.3) % MCHC (32.0-37.0) g/dL BUN (7-17) mg/dL Glucose (74-99) mg/dL POC Glucose (mg/dL) 164 H 189 H (75-99) mg/dL Magnesium (1.6-2.3) mg/dL Assessment and Plan Assessment: I reviewed the documentation as provided by the CRYSTAL above, who is the original author of this note. I agree with the documented assessment and plan, with the following changes: None
[2020-07-19 17:30] LABS: Glucose,Whole Blood 189 mg/dL (75-99)
[2020-07-19 20:58] LABS: Glucose,Whole Blood 270 mg/dL (75-99)
[2020-07-19] MEDS: FENOFIBRATE 160 MG TAB PO SCH (21:33)
[2020-07-19] MEDS: ATORVASTATIN 10 MG TAB PO SCH (21:33)
[2020-07-19] MEDS: ACETAMINOPHEN TAB 325 MG TAB PO PRN (21:34)
[2020-07-19] MEDS: INSULIN DETEMIR (LEVEMIR) 100 UNIT/ML SYR SQ SCH (21:35)
[2020-07-20] MEDS: SODIUM CHLORIDE 0.9% 1,000 ML IV SCH (06:00)
[2020-07-20 06:45] LABS: Glucose,Whole Blood 175 mg/dL (75-99)
[2020-07-20] MEDS: ZINC SULFATE 220 MG CAP PO SCH (08:01)
[2020-07-20] MEDS: INSULIN ASPART (NovoLOG) 100 UNIT/ML VIAL SQ SCH ×4 (08:01→20:49)
[2020-07-20] MEDS: PYRIDOXINE 50 MG TAB PO SCH (08:01)
[2020-07-20] MEDS: MULTIVITAMINS, THERA 1 EACH TAB PO SCH (08:02)
[2020-07-20] MEDS: ASCORBIC ACID 500 MG TAB PO SCH (08:02)
[2020-07-20] MEDS: CHOLECALCIFEROL 25 MCG (1000 IU) TABLET PO SCH (08:02)
[2020-07-20 08:05] LABS: Basophils % (A) 1 %; Eosinophils # (A) 0.4 k/uL (0-0.7); Eosinophils % (A) 13 %; HCT 25.2 % (34.0-46.0); HGB 8.4 gm/dL (11.4-16.0); Lymphocytes # (A) 0.9 k/uL (1.0-4.8); Lymphocytes % (A) 33 %; MCH 30.7 pg (25.0-35.0); MCHC 33.3 g/dL (31.0-37.0); Mean Platelet Volume 8.8; Monocytes # (A) 0.3 k/uL (0-1.0); Monocytes % (A) 10 %; Neutrophils # (A) 1.1 k/uL (1.3-7.7); Neutrophils % (A) 40 %; Platelet Count 164 k/uL (150-450); RBC 2.74 m/uL (3.80-5.40); RDW 14.2 % (11.5-15.5); WBC 2.8 k/uL (3.8-10.6)
--- NOTE | 2020-07-20 09:38 | P.DS ---
Providers Date of admission: 07/18/20 00:37 Expected date of discharge: 07/20/20 Attending physician: Norm Hart MD Consults: 07/18/20 00:36 Consult Physician Routine Consulting Provider: Hugh Shaver Consult Reason/Comments: gib Do you want consulting provider notified?: Yes Primary care physician: Indra Olsen MD Hospital Course: Patient is a 74-year-old female with a past medical history of hyperlipidemia and dli-ntsmato-mqxlhdawb diabetes mellitus type 2. She presented to the emergency department on 07/17/20 with a chief complaint of abdominal pain and rectal bleeding. Patient was evaluated in the ER and placed on observation for further management of her medical problems noted below. Rectal bleeding resulting in acute blood loss anemia -CT abdomen and pelvis with IV contrast revealing significant diffuse colonic diverticulosis without convincing CT evidence for acute diverticulitis, -Rectal bleeding resolved and patient had a normal bowel movement on the day of her discharge -Patient was seen and evaluated by GI. for colonoscopy at this time. Hypomagnesemia -Replaced. Diabetes mellitus type 2 -Resuming medication Hyperlipidemia Patient was seen and evaluated by me on the day of discharge. She appeared well and was eager to go home. We discussed the possibility of having a recurrent rectal bleed and the nature of diverticular bleed. She verbalized understanding that she should return to the emergency room if further bleeding happened. Otherwise she will follow-up with her PCP as directed. For further details about this hospitalization please refer to the electronic chart. Patient Condition at Discharge: Good Plan - Discharge Summary Discharge Rx Participant: No New Discharge Prescriptions: New Magnesium Oxide [Mag-Ox] 400 mg PO DAILY #30 tablet Continue Cholecalciferol [Vitamin D3 (25 Mcg = 1000 Iu)] 1,000 unit PO DAILY Aspirin 81 mg PO HS Simvastatin [Zocor] 20 mg PO HS Pioglitazone HCl [Actos] 45 mg PO DAILY glyBURIDE/METFORMIN HCL [Glucovance 2.5-500 mg Tablet] 1 tab PO BID Fenofibrate Nanocrystallized [Tricor] 145 mg PO HS Exenatide Microspheres [Bydureon Pen] 2 mg SQ MO Metoclopramide [Reglan] 5 mg PO TID PRN PRN Reason: Nausea And Vomiting Multivitamins, Thera [Multivitamin (formulary)] 1 tab PO DAILY Omeprazole [PriLOSEC] 40 mg PO DAILY Pyridoxine [Vitamin B-6] 50 mg PO DAILY Ascorbic Acid [Vitamin C] 500 mg PO DAILY Zinc 50 mg PO DAILY Discharge Medication List Aspirin 81 mg PO HS 07/12/13 [History] Cholecalciferol [Vitamin D3 (25 Mcg = 1000 Iu)] 1,000 unit PO DAILY 07/12/13 [History] Fenofibrate Nanocrystallized [Tricor] 145 mg PO HS 07/12/13 [History] Pioglitazone HCl [Actos] 45 mg PO DAILY 07/12/13 [History] Simvastatin [Zocor] 20 mg PO HS 07/12/13 [History] glyBURIDE/METFORMIN HCL [Glucovance 2.5-500 mg Tablet] 1 tab PO BID 07/12/13 [History] Exenatide Microspheres [Bydureon Pen] 2 mg SQ MO 09/19/17 [History] Ascorbic Acid [Vitamin C] 500 mg PO DAILY 07/18/20 [History] Metoclopramide [Reglan] 5 mg PO TID PRN 07/18/20 [History] Multivitamins, Thera [Multivitamin (formulary)] 1 tab PO DAILY 07/18/20 [History] Omeprazole [PriLOSEC] 40 mg PO DAILY 07/18/20 [History] Pyridoxine [Vitamin B-6] 50 mg PO DAILY 07/18/20 [History] Zinc 50 mg PO DAILY 07/18/20 [History] Magnesium Oxide [Mag-Ox] 400 mg PO DAILY #30 tablet 07/20/20 [Rx] Follow up Appointment(s)/Referral(s): Indra Olsen MD [Primary Care Provider] - 1-2 days Patient Instructions/Handouts: Irritable Bowel Syndrome (DC) Discharge Disposition: HOME SELF-CARE
[2020-07-20 10:24] LABS: HGB 9.6 gm/dL (11.4-16.0); MCH 30.9 pg (25.0-35.0); MCHC 33.2 g/dL (31.0-37.0); MCV 93.1 fL (80.0-100.0); Mean Platelet Volume 8.5; Platelet Count 193 k/uL (150-450); RBC 3.11 m/uL (3.80-5.40); RDW 14.2 % (11.5-15.5); WBC 3.1 k/uL (3.8-10.6)
[2020-07-20 11:14] LABS: Glucose,Whole Blood 332 mg/dL (75-99)
[2020-07-20] MEDS: PANTOPRAZOLE 40 MG TABLET PO SCH (13:12)
[2020-07-20] MEDS ORDERED: bisacodyL 5 MG TABLET.DR PO STA (14:38)
--- NOTE | 2020-07-20 16:36 | P.PN ---
Subjective Progress Note Date: 07/20/20 Principal diagnosis: Acute lower GI bleed This 74-year-old white female who was admitted to the hospital yesterday with acute onset of multiple episodes of bright red blood per rectum that started around 7 PM Saturday evening. She states she had recently episodes and by 10:30 she became somewhat diaphoretic, dizzy, weak, and nauseous therefore she presented to the emergency room for further evaluation. She had a colonoscopy in 2019 was noted to have diverticulosis, however has never had those symptoms in the past. She had a CT of the abdomen and pelvis that was significant for diffuse colonic diverticulosis without convincing CT evidence for acute diverticulitis. There is a mild uncomplicated acute colitis cannot be excluded. No bowel obstruction noted. The seen and examined today with complaints of bright red blood per rectum. She had up to 5 episodes. She is still having lower abdominal cramping. She denies any sharp pain, nausea, or vomiting. Objective - Vital Signs Vital signs: Vital Signs Temp 97.9 F 07/20/20 07:00 Pulse 68 07/20/20 07:00 Resp 18 07/20/20 07:00 BP 131/65 07/20/20 07:00 Pulse Ox 95 07/20/20 07:00 Intake & Output 07/19/20 07/20/20 07/20/20 18:59 06:59 18:59 Intake Total 1880 Balance 1880 Intake: Oral 1880 Other: # Voids 4 2 # Bowel Movements 2 - Exam General appearance: The patient is alert, oriented, appears in no acute distress. HET: Head is normocephalic and atraumatic. Conjunctiva pink. Sclera anicteric. Neck: Supple without lymphadenopathy. Abdomen: Soft, lower abdominal tenderness, nondistended with bowel sounds. No guarding or rigidity. Extremities: Normal skin color and turgor. No pedal edema Skin: No rashes, no jaundice Neurological: No focal deficits. Alert and oriented 3. - Labs CBC & Chem 7: 07/20/20 10:01 07/19/20 08:58 Labs: Abnormal Lab Results - Last 24 Hours (Table) 07/19/20 07/19/20 07/19/20 Range/Units 11:52 17:28 20:56 WBC (3.8-10.6) k/uL RBC (3.80-5.40) m/uL Hgb (11.4-16.0) gm/dL Hct (34.0-46.0) % Neutrophils # (1.3-7.7) k/uL Lymphocytes # (1.0-4.8) k/uL POC Glucose (mg/dL) 164 H 189 H 270 H (75-99) mg/dL 07/20/20 07/20/20 Range/Units 05:46 06:44 WBC 2.8 L (3.8-10.6) k/uL RBC 2.74 L (3.80-5.40) m/uL Hgb 8.4 L (11.4-16.0) gm/dL Hct 25.2 L (34.0-46.0) % Neutrophils # 1.1 L (1.3-7.7) k/uL Lymphocytes # 0.9 L (1.0-4.8) k/uL POC Glucose (mg/dL) 175 H (75-99) mg/dL Assessment and Plan (1) Lower GI bleed Narrative/Plan: This is 74-year-old female who presented to the hospital with complaints of an acute lower GI bleed with multiple episodes of bright red blood per rectum that started Saturday evening with at least 6-7 episodes of clots. She was noted to have a drop in her hemoglobin. She is underwent a colonoscopy in [address] Portillo that was noted to have sigmoid diverticulosis. CT of the abdomen also show sigmoid diverticulosis without any evidence of diverticulitis or bowel obstruction. Possible etiologies include diverticular bleed, infectious, inflammatory, or ischemic colitis. Likely we are dealing with a diverticular bleed with patient's known history of diverticulosis. Patient with continued rectal bleeding, will proceed with colonoscopy tomorrow. Patient agreeable with plan. Procedure discussed with patient in detail including risks of procedure, patient is agreeable to proceed. Current Visit: Yes Status: Acute Code(s): K92.2 - GASTROINTESTINAL HEMORRHAGE, UNSPECIFIED SNOMED Code(s): 42216809 Plan: 1. Clear liquid diet, nothing by mouth after midnight 2. Daily CBC 3. Bowel prep this evening 4. Plan for colonoscopy tomorrow, risks and benefits of procedure discussed w ith patient, she is agreeable to proceed with planned procedure. Thank you for this consultation, we will continue to follow Dr. Rosina Georges I agree with the dictator's note, documented as a scribe by Lala House.
[2020-07-20] MEDS ORDERED: PEG 3350-NA SULF,BICARB,CL/KCL 4,000 ML BOTTLE PO ONE (17:00)
[2020-07-20 17:23] LABS: Glucose,Whole Blood 214 mg/dL (75-99)
[2020-07-20 20:20] LABS: Glucose,Whole Blood 231 mg/dL (75-99)
[2020-07-20] MEDS: ATORVASTATIN 10 MG TAB PO SCH (20:49)
[2020-07-20] MEDS: FENOFIBRATE 160 MG TAB PO SCH (20:49)
[2020-07-20] MEDS: ACETAMINOPHEN TAB 325 MG TAB PO PRN (20:53)
[2020-07-20] MEDS: INSULIN DETEMIR (LEVEMIR) 100 UNIT/ML SYR SQ SCH (20:54)
[2020-07-20 21:31] LABS: Basophils % (A) 0 %; Eosinophils # (A) 0.3 k/uL (0-0.7); Eosinophils % (A) 7 %; HCT 29.8 % (34.0-46.0); HGB 9.3 gm/dL (11.4-16.0); Lymphocytes # (A) 1.2 k/uL (1.0-4.8); Lymphocytes % (A) 30 %; MCHC 31.3 g/dL (31.0-37.0); MCV 92.6 fL (80.0-100.0); Mean Platelet Volume 8.5; Monocytes # (A) 0.4 k/uL (0-1.0); Monocytes % (A) 9 %; Neutrophils % (A) 49 %; Platelet Count 232 k/uL (150-450); RBC 3.22 m/uL (3.80-5.40); RDW 14.6 % (11.5-15.5)
[2020-07-21 06:50] LABS: Glucose,Whole Blood 146 mg/dL (75-99)
[2020-07-21] MEDS: ZINC SULFATE 220 MG CAP PO SCH (08:16)
[2020-07-21] MEDS: MULTIVITAMINS, THERA 1 EACH TAB PO SCH (08:16)
[2020-07-21] MEDS: PYRIDOXINE 50 MG TAB PO SCH (08:16)
[2020-07-21] MEDS: ASCORBIC ACID 500 MG TAB PO SCH (08:16)
[2020-07-21] MEDS: INSULIN ASPART (NovoLOG) 100 UNIT/ML VIAL SQ SCH ×2 (08:16→11:42)
[2020-07-21] MEDS: PANTOPRAZOLE 40 MG TABLET PO SCH (08:16)
[2020-07-21] MEDS: CHOLECALCIFEROL 25 MCG (1000 IU) TABLET PO SCH (08:16)
[2020-07-21 09:50] LABS: Basophils # (A) 0.01 X 10*3/uL (0.00-0.10); Basophils % (A) 0.3 %; Eosinophils # (A) 0.31 X 10*3/uL (0.04-0.35); Eosinophils % (A) 8.2 %; HCT 23.9 % (37.2-46.3); HGB 7.3 g/dL (12.0-15.0); Lymphocytes # (A) 1.26 X 10*3/uL (0.90-5.00); Lymphocytes % (A) 33.5 %; MCH 29.3 pg (27.0-32.0); MCHC 30.5 g/dL (32.0-37.0); Mean Platelet Volume 11.1 fL (9.5-12.2); Monocytes # (A) 0.61 X 10*3/uL (0.20-1.00); Monocytes % (A) 16.2 %; Neutrophils # (A) 1.56 X 10*3/uL (1.80-7.70); Neutrophils % (A) 41.5 %; Platelet Count 178 X 10*3/uL (140-440); RBC 2.49 X 10*6/uL (4.10-5.20); RDW 13.9 % (11.5-14.5); WBC 3.76 X 10*3/uL (4.50-10.00)
[2020-07-21] MEDS ORDERED: MAGNESIUM CITRATE 296 ML BOTTLE PO ONE (10:00)
[2020-07-21 11:36] LABS: Glucose,Whole Blood 194 mg/dL (75-99)
[2020-07-21] MEDS ORDERED: PROPOFOL 10 MG/ML 20 ML VIAL IV ONE (12:05)
[2020-07-21] MEDS ORDERED: LACTATED RINGERS 1,000 ML IV ONE (12:06)
--- NOTE | 2020-07-21 12:54 | P.PCN ---
Date of Procedure: 07/21/20 Description of Procedure: BRIEF HISTORY: Patient is a 74-year-old female who was admitted to the hospital for multiple episodes of bright red blood per rectum. She reported associated diaphoresis, dizziness, weakness and nausea. Computed tomography scan of the abdomen was significant for diffuse colonic diverticulosis with no evidence of acute diverticulitis and possible uncomplicated mild colitis. Last colonoscopy was in 2019 and significant for diverticulosis. PROCEDURE PERFORMED: Colonoscopy. PREOPERATIVE DIAGNOSIS: GI bleed, hematochezia. ESTIMATED BLOOD LOSS: Minimal. IV sedation per Anesthesia. PROCEDURE: After informed consent was obtained, the patient, was brought into the endoscopy unit. IV sedation was administered by Anesthesia under continuous monitoring. Digital rectal examination was normal. Initially the Olympus CF-190 flexible video colonoscope was then inserted in the rectum, gradually advanced into the cecum without any difficulty. Careful examination was performed as the scope was gradually being withdrawn. Ileocecal valve and the appendiceal orifice were visualized and appeared normal. Prep was fair with some solid stool noted throughout the colon and prohibiting complete visualization of the mucosa. Mucosa of the cecum, ascending colon, transverse colon, descending colon, sigmoid colon, and rectum appeared normal but complete visualization was prohibited by fair prep and with small and large mouth diverticula noted throughout the colon . Retroflexion was performed in the rectum and no lesions were seen, Internal hemorrhoids noted . The patient tolerated the procedure well. IMPRESSION: Severe soni diverticulosis. Internal hemorrhoids. No active bleeding or old blood noted throughout the entire visualized colon. RECOMMENDATIONS: Findings of this examination were discussed with the patient and medical team. Okay to resume diet. Okay to resume medications. Recommend fiber supplementation. Okay for discharge when otherwise medically stable.
[2020-07-21 14:33] VITALS: BP 133/73; PULSE 75; RESP 18; TEMP 98.1
--- NOTE | 2020-07-21 14:39 | P.DS ---
Providers Date of admission: 07/20/20 16:17 Expected date of discharge: 07/21/20 Attending physician: Norm Hart MD Consults: 07/18/20 00:36 Consult Physician Routine Consulting Provider: Hugh Shaver Consult Reason/Comments: gib Do you want consulting provider notified?: Yes Primary care physician: Indra Olsen MD Hospital Course: Patient is a 74-year-old female with a past medical history of hyperlipidemia and [id number] diabetes mellitus type 2. She presented to the emergency department on 07/17/20 with a chief complaint of abdominal pain and rectal bleeding. Patient was evaluated in the ER and placed on observation for further management of her medical problems noted below. Rectal bleeding resulting in acute blood loss anemia -CT abdomen and pelvis with IV contrast revealing significant diffuse colonic diverticulosis without convincing CT evidence for acute diverticulitis, -Patient underwent a colonoscopy with GI showing evidence of diverticulosis and some internal hemorrhoids with no active bleeding Acute blood loss anemia -Hemoglobin dropped to 7.3. Patient was a symptomatic. GI bleed resolved 24 hours prior to discharge. Patient was given the option of getting 1 unit of blood transfusion versus going home with iron supplement and as she is symptomatic we will avoid blood transfusion at this time. Repeat CBC in the next 2-3 days and transfuse as needed for hemoglobin less than 7.. Hypomagnesemia -Replaced. Diabetes mellitus type 2 Hyperlipidemia Patient will be discharged home in a stable condition. For further details about this hospitalization please refer to the electronic chart. Time spent on discharge > 30 minutes including counseling and coordination of care Patient Condition at Discharge: Stable Plan - Discharge Summary Discharge Rx Participant: No New Discharge Prescriptions: New Magnesium Oxide [Mag-Ox] 400 mg PO DAILY #30 tablet Ferrous Sulfate [Feosol] 325 mg PO BID #60 tab Continue Cholecalciferol [Vitamin D3 (25 Mcg = 1000 Iu)] 1,000 unit PO DAILY Aspirin 81 mg PO HS Simvastatin [Zocor] 20 mg PO HS Pioglitazone HCl [Actos] 45 mg PO DAILY glyBURIDE/METFORMIN HCL [Glucovance 2.5-500 mg Tablet] 1 tab PO BID Fenofibrate Nanocrystallized [Tricor] 145 mg PO HS Exenatide Microspheres [Bydureon Pen] 2 mg SQ MO Metoclopramide [Reglan] 5 mg PO TID PRN PRN Reason: Nausea And Vomiting Multivitamins, Thera [Multivitamin (formulary)] 1 tab PO DAILY Omeprazole [PriLOSEC] 40 mg PO DAILY Pyridoxine [Vitamin B-6] 50 mg PO DAILY Ascorbic Acid [Vitamin C] 500 mg PO DAILY Zinc 50 mg PO DAILY Discharge Medication List Aspirin 81 mg PO HS 07/12/13 [History] Cholecalciferol [Vitamin D3 (25 Mcg = 1000 Iu)] 1,000 unit PO DAILY 07/12/13 [History] Fenofibrate Nanocrystallized [Tricor] 145 mg PO HS 07/12/13 [History] Pioglitazone HCl [Actos] 45 mg PO DAILY 07/12/13 [History] Simvastatin [Zocor] 20 mg PO HS 07/12/13 [History] glyBURIDE/METFORMIN HCL [Glucovance 2.5-500 mg Tablet] 1 tab PO BID 07/12/13 [History] Exenatide Microspheres [Bydureon Pen] 2 mg SQ MO 09/19/17 [History] Ascorbic Acid [Vitamin C] 500 mg PO DAILY 07/18/20 [History] Metoclopramide [Reglan] 5 mg PO TID PRN 07/18/20 [History] Multivitamins, Thera [Multivitamin (formulary)] 1 tab PO DAILY 07/18/20 [History] Omeprazole [PriLOSEC] 40 mg PO DAILY 07/18/20 [History] Pyridoxine [Vitamin B-6] 50 mg PO DAILY 07/18/20 [History] Zinc 50 mg PO DAILY 07/18/20 [History] Magnesium Oxide [Mag-Ox] 400 mg PO DAILY #30 tablet 07/20/20 [Rx] Ferrous Sulfate [Feosol] 325 mg PO BID #60 tab 07/21/20 [Rx] Follow up Appointment(s)/Referral(s): Indra Olsen MD [Primary Care Provider] - 1-2 days Patient Instructions/Handouts: Irritable Bowel Syndrome (DC) Discharge Disposition: HOME SELF-CARE
[2020-07-21] MEDS ORDERED: MESALAMINE 1,000 MG SUPP RECTAL SCH (21:00)
== END 2020-07-21 15:15 | disposition home or self-care (01) ==
LOC: EC 22:54 → 6NMEDSUR 07-18 00:37 → INTOOBSV 07-20 16:17 → OBSVTOIN 07-20 16:17 → UNDODISIN 07-21 15:15
PROVIDERS: ADMIT Internal Medicine; ATTEND Internal Medicine
DX: K57.31 Diverticulosis of large intestine without perforation or abscess with bleeding (principal); D62 Acute posthemorrhagic anemia; E11.65 Type 2 diabetes mellitus with hyperglycemia; E83.42 Hypomagnesemia; K64.8 Other hemorrhoids; K58.9 Irritable bowel syndrome, unspecified; I11.9 Hypertensive heart disease without heart failure; K21.9 Gastro-esophageal reflux disease without esophagitis; N85.4 Malposition of uterus; K44.9 Diaphragmatic hernia without obstruction or gangrene; N20.0 Calculus of kidney; E78.5 Hyperlipidemia, unspecified; M19.90 Unspecified osteoarthritis, unspecified site; Z20.822 Contact with and (suspected) exposure to COVID-19; Z79.82 Long term (current) use of aspirin; Z79.84 Long term (current) use of oral hypoglycemic drugs; Z79.899 Other long term (current) drug therapy; Z90.49 Acquired absence of other specified parts of digestive tract; Z86.010 Personal history of colon polyps; Z98.890 Other specified postprocedural states; Z82.49 Family history of ischemic heart disease and other diseases of the circulatory system; Z83.3 Family history of diabetes mellitus; Z80.9 Family history of malignant neoplasm, unspecified
CPT/HCPCS: 96376 ×2; 96361 ×2; 96366 ×3; 96365; 96375; 99285; 36415; 86900; 86901; 80053; 80048; 83735 ×4; 84484; 85025 ×3; 85027 ×3; 85610; 85730; 86850; 83036; 87635; 74177; 45378; G0378 ×4; J2405; J3475 ×2; J2704; C9113 ×2; Q9967; 96374

== ENCOUNTER 2020-08-05 02:44 | Observation (INO) | payer MEDICARE ==
[2020-08-05] MEDS ORDERED: SODIUM CHLORIDE 0.9% 1,000 ML IV STA (03:09)
[2020-08-05] MEDS ORDERED: SODIUM CHLORIDE 0.9% 500 ML 500 ML IV STA (03:09)
--- NOTE | 2020-08-05 03:10 | ED ---
GI Bleed HPI - General Chief complaint: GI Bleed Stated complaint: GI Bleed Time Seen by Provider: 08/05/20 02:50 Source: patient, RN notes reviewed, old records reviewed Mode of arrival: ambulatory Limitations: no limitations - History of Present Illness Initial comments: This is a 74-year-old female DF for evaluation patient Dese for evaluation of blood in her stool. Patient has history of GI bleed. No blood thinners. No lightheadedness dizziness or weakness. Patient does not having abdominal pain no nausea vomiting. MD complaint: blood on toilet paper, blood streaked stool -: hour(s) Radiation: none Severity scale (1-10): 7 Quality: painless Consistency: intermittent Improves with: none Worsens with: none Context: history of GI bleed Associated Symptoms: denies other symptoms Treatments Prior to Arrival: none - Related Data Home Medications Medication Instructions Recorded Confirmed Cholecalciferol [Vitamin D3 (25 1,000 unit PO DAILY 07/12/13 08/05/20 Mcg = 1000 Iu)] Fenofibrate Nanocrystallized 145 mg PO HS 07/12/13 08/05/20 [Tricor] Pioglitazone HCl [Actos] 45 mg PO DAILY 07/12/13 08/05/20 Simvastatin [Zocor] 20 mg PO HS 07/12/13 08/05/20 glyBURIDE/METFORMIN HCL 1 tab PO BID 07/12/13 08/05/20 [Glucovance 2.5-500 mg Tablet] Ascorbic Acid [Vitamin C] 500 mg PO DAILY 07/18/20 08/05/20 Metoclopramide [Reglan] 5 mg PO TID PRN 07/18/20 08/05/20 Multivitamins, Thera [Multivitamin 1 tab PO DAILY 07/18/20 08/05/20 (formulary)] Omeprazole [PriLOSEC] 40 mg PO DAILY 07/18/20 08/05/20 Pyridoxine [Vitamin B-6] 50 mg PO DAILY 07/18/20 08/05/20 Zinc 50 mg PO DAILY 07/18/20 08/05/20 Previous Rx's Medication Instructions Recorded Magnesium Oxide [Mag-Ox] 400 mg PO DAILY #30 tablet 07/20/20 Ferrous Sulfate [Feosol] 325 mg PO BID #60 tab 07/21/20 Allergies Allergy/AdvReac Type Severity Reaction Status Date / Time No Known Allergies Allergy Verified 08/05/20 06:58 Review of Systems ROS Statement: Those systems with pertinent positive or pertinent negative responses have been documented in the HPI. ROS Other: All systems not noted in ROS Statement are negative. Past Medical History Past Medical History: Diabetes Mellitus, GERD/Reflux, Hyperlipidemia, Osteoarthritis (OA) Additional Past Medical History / Comment(s): covid + 05/15 - History of Any Multi-Drug Resistant Organisms: None Reported Past Surgical History: Cholecystectomy Additional Past Surgical History / Comment(s): COLONOSCOPY Past Anesthesia/Blood Transfusion Reactions: No Reported Reaction Past Psychological History: No Psychological Hx Reported Smoking Status: Never smoker Past Alcohol Use History: None Reported Past Drug Use History: None Reported - Past Family History Sister(s) Family Medical History: Cancer Additional Family Medical History / Comment(s): Several cancers. Father Family Medical History: Coronary Artery Disease (CAD), Diabetes Mellitus Mother Family Medical History: Coronary Artery Disease (CAD), Diabetes Mellitus General Exam Limitations: no limitations General appearance: alert, in no apparent distress Head exam: Present: atraumatic, normocephalic, normal inspection Eye exam: Present: normal appearance, PERRL, EOMI. Absent: scleral icterus, conjunctival injection, periorbital swelling ENT exam: Present: normal exam, mucous membranes moist Neck exam: Present: normal inspection. Absent: tenderness, meningismus, lymphadenopathy Respiratory exam: Present: normal lung sounds bilaterally. Absent: respiratory distress, wheezes, rales, rhonchi, stridor Cardiovascular Exam: Present: regular rate, normal rhythm, normal heart sounds. Absent: systolic murmur, diastolic murmur, rubs, gallop, clicks GI/Abdominal exam: Present: soft, normal bowel sounds. Absent: distended, tenderness, guarding, rebound, rigid Extremities exam: Present: normal inspection, full ROM, normal capillary refill. Absent: tenderness, pedal edema, joint swelling, calf tenderness Back exam: Present: normal inspection Neurological exam: Present: alert, oriented X3, CN II-XII intact Psychiatric exam: Present: normal affect, normal mood Skin exam: Present: warm, dry, intact, normal color. Absent: rash Course Vital Signs 08/05/20 08/05/20 08/05/20 02:49 03:26 04:34 Temperature 98.4 F Pulse Rate 96 98 77 Respiratory 20 20 20 Rate Blood Pressure 133/63 125/63 133/61 O2 Sat by Pulse 97 97 Oximetry 08/05/20 08/05/20 08/05/20 08:00 09:00 10:00 Temperature 98.4 F Pulse Rate 84 Respiratory 20 20 20 Rate Blood Pressure 116/52 O2 Sat by Pulse 97 97 97 Oximetry 08/05/20 11:35 Temperature Pulse Rate 88 Respiratory 16 Rate Blood Pressure 122/78 O2 Sat by Pulse 98 Oximetry - Reevaluation(s) Reevaluation #1: Medical record is reviewed Patient symptoms significantly improved here in the ER Patient informed results questions answered Medical Decision Making - Medical Decision Making 74 female with primary blood per rectum. Hemoglobin stable, patient will be a dmitted for trending of hemoglobin and GI evaluation - Lab Data Result diagrams: 08/05/20 19:50 08/05/20 03:20 Lab Results 08/05/20 08/05/20 08/05/20 Range/Units 03:20 03:20 03:20 WBC 4.0 (3.8-10.6) k/uL RBC 3.25 L (3.80-5.40) m/uL Hgb 10.0 L (11.4-16.0) gm/dL Hct 30.2 L (34.0-46.0) % MCV 93.1 (80.0-100.0) fL MCH 30.7 (25.0-35.0) pg MCHC 32.9 (31.0-37.0) g/dL RDW 15.7 H (11.5-15.5) % Plt Count 225 (150-450) k/uL MPV 8.3 Neutrophils % 49 % Lymphocytes % 31 % Monocytes % 8 % Eosinophils % 8 % Basophils % 1 % Neutrophils # 1.9 (1.3-7.7) k/uL Lymphocytes # 1.2 (1.0-4.8) k/uL Monocytes # 0.3 (0-1.0) k/uL Eosinophils # 0.3 (0-0.7) k/uL Basophils # 0.0 (0-0.2) k/uL Hypochromasia Slight PT 10.7 (9.0-12.0) sec INR 1.0 (<1.2) APTT 19.9 L (22.0-30.0) sec Sodium 138 (137-145) mmol/L Potassium 4.2 (3.5-5.1) mmol/L Chloride 105 (98-107) mmol/L Carbon Dioxide 24 (22-30) mmol/L Anion Gap 9 mmol/L BUN 12 (7-17) mg/dL Creatinine 0.74 (0.52-1.04) mg/dL Est GFR (CKD-EPI)AfAm >90 (>60 ml/min/1.73 sqM) Est GFR (CKD-EPI)NonAf 81 (>60 ml/min/1.73 sqM) Glucose 164 H (74-99) mg/dL Calcium 10.1 (8.4-10.2) mg/dL Magnesium 1.5 L (1.6-2.3) mg/dL Total Bilirubin 0.2 (0.2-1.3) mg/dL AST 23 (14-36) U/L ALT 13 (4-34) U/L Alkaline Phosphatase 86 (38-126) U/L Troponin I (0.000-0.034) ng/mL Total Protein 6.0 L (6.3-8.2) g/dL Albumin 3.5 (3.5-5.0) g/dL Lipase 185 (23-300) U/L Blood Type Blood Type Recheck Bld Type Recheck Status Antibody Screen Spec Expiration Date 08/05/20 08/05/20 Range/Units 03:20 03:20 WBC (3.8-10.6) k/uL RBC (3.80-5.40) m/uL Hgb (11.4-16.0) gm/dL Hct (34.0-46.0) % MCV (80.0-100.0) fL MCH (25.0-35.0) pg MCHC (31.0-37.0) g/dL RDW (11.5-15.5) % Plt Count (150-450) k/uL MPV Neutrophils % % Lymphocytes % % Monocytes % % Eosinophils % % Basophils % % Neutrophils # (1.3-7.7) k/uL Lymphocytes # (1.0-4.8) k/uL Monocytes # (0-1.0) k/uL Eosinophils # (0-0.7) k/uL Basophils # (0-0.2) k/uL Hypochromasia PT (9.0-12.0) sec INR (<1.2) APTT (22.0-30.0) sec Sodium (137-145) mmol/L Potassium (3.5-5.1) mmol/L Chloride (98-107) mmol/L Carbon Dioxide (22-30) mmol/L Anion Gap mmol/L BUN (7-17) mg/dL Creatinine (0.52-1.04) mg/dL Est GFR (CKD-EPI)AfAm (>60 ml/min/1.73 sqM) Est GFR (CKD-EPI)NonAf (>60 ml/min/1.73 sqM) Glucose (74-99) mg/dL Calcium (8.4-10.2) mg/dL Magnesium (1.6-2.3) mg/dL Total Bilirubin (0.2-1.3) mg/dL AST (14-36) U/L ALT (4-34) U/L Alkaline Phosphatase (38-126) U/L Troponin I <0.012 (0.000-0.034) ng/mL Total Protein (6.3-8.2) g/dL Albumin (3.5-5.0) g/dL Lipase (23-300) U/L Blood Type O Negative Blood Type Recheck O Neg Bld Type Recheck Status No Antibody Screen NEGATIVE Spec Expiration Date 08/08/20202319 Disposition Clinical Impression: Lower gastrointestinal hemorrhage Disposition: ADMITTED IP TO THIS [facility] Condition: Fair Is patient prescribed a controlled substance at d/c from ED?: No
[2020-08-05 03:28] LABS: Basophils % (A) 1 %; Eosinophils # (A) 0.3 k/uL (0-0.7); Eosinophils % (A) 8 %; HCT 30.2 % (34.0-46.0); Hypochromasia Slight; Lymphocytes # (A) 1.2 k/uL (1.0-4.8); Lymphocytes % (A) 31 %; MCH 30.7 pg (25.0-35.0); MCHC 32.9 g/dL (31.0-37.0); MCV 93.1 fL (80.0-100.0); Mean Platelet Volume 8.3; Monocytes # (A) 0.3 k/uL (0-1.0); Monocytes % (A) 8 %; Neutrophils # (A) 1.9 k/uL (1.3-7.7); Neutrophils % (A) 49 %; Platelet Count 225 k/uL (150-450); RBC 3.25 m/uL (3.80-5.40); RDW 15.7 % (11.5-15.5)
[2020-08-05 03:39] LABS: ALT 13 U/L (4-34); AST 23 U/L (14-36); African American GFR (CKD) >90 (>60 ml/min/1.73 sqM); Albumin 3.5 g/dL (3.5-5.0); Alkaline Phosphatase 86 U/L (38-126); Anion Gap 9 mmol/L; Blood Urea Nitrogen 12 mg/dL (7-17); Calcium 10.1 mg/dL (8.4-10.2); Carbon Dioxide 24 mmol/L (22-30); Chloride 105 mmol/L (98-107); Glucose 164 mg/dL (74-99); Lipase 185 U/L (23-300); Magnesium 1.5 mg/dL (1.6-2.3); Non-African American GFR(CKD) 81 (>60 ml/min/1.73 sqM); Potassium 4.2 mmol/L (3.5-5.1); Sodium 138 mmol/L (137-145); Total Bilirubin 0.2 mg/dL (0.2-1.3)
[2020-08-05] MEDS ORDERED: MORPHINE SULFATE 4 MG/ML SYRINGE IV PRN (03:49)
[2020-08-05] MEDS ORDERED: ONDANSETRON 4 MG/2 ML VIAL IVP PRN (03:49)
[2020-08-05] MEDS ORDERED: NALOXONE 0.4 MG/ML 1 ML VIAL IV PRN (03:49)
[2020-08-05 04:08] LABS: Prothrombin Time 10.7 sec (9.0-12.0)
[2020-08-05 04:39] LABS: Partial Thromboplastin Time 19.9 sec (22.0-30.0)
[2020-08-05] MEDS ORDERED: MAGNESIUM SULFATE-D5W PMX 1 GM in DEXTROSE/WATER 1 100ML.BAG IVPB ONE (05:30)
--- NOTE | 2020-08-05 05:41 | P.HPIM ---
History of Present Illness H&P Date: 08/05/20 Chief Complaint: Recurrent GI bleeding 74-year-old female with diverticulosis, diabetes mellitus Patient comes in due to recurrent episodes of bleeding per rectum she was rec ently discharged from the hospital July 21 when she was diagnosed with diverticulosis with rectal bleeding and symptomatic anemia patient hemoglobin dropped down to 7 however she declined blood transfusion at that time and preferred to rely on iron supplementation since discharge she's been doing fine she denies any symptoms of shortness of breath or chest pain any dizziness or lightheadedness however today after midnight she had another episode of rectal bleeding for which she decided to come to the hospital. She again denies any chest pain or trouble breathing dizziness or lightheadedness at this time she denies any abdominal pain. Patient is not on any blood thinners or NSAIDs. In the ED hemoglobin was 10 improved from 7.5 at discharge about 2 weeks ago. Review of Systems Pertinent positives as noted in HPI. All other systems were reviewed and are ne gative Past Medical History Past Medical History: Diabetes Mellitus, GERD/Reflux, Hyperlipidemia, Osteoarthritis (OA) Additional Past Medical History / Comment(s): covid + 05/15 - History of Any Multi-Drug Resistant Organisms: None Reported Past Surgical History: Cholecystectomy Additional Past Surgical History / Comment(s): COLONOSCOPY Past Anesthesia/Blood Transfusion Reactions: No Reported Reaction Past Psychological History: No Psychological Hx Reported Smoking Status: Never smoker Past Alcohol Use History: None Reported Past Drug Use History: None Reported - Past Family History Sister(s) Family Medical History: Cancer Additional Family Medical History / Comment(s): Several cancers. Father Family Medical History: Coronary Artery Disease (CAD), Diabetes Mellitus Mother Family Medical History: Coronary Artery Disease (CAD), Diabetes Mellitus Medications and Allergies Home Medications Medication Instructions Recorded Confirmed Type Aspirin 81 mg PO HS 07/12/13 07/18/20 History Cholecalciferol [Vitamin D3 (25 1,000 unit PO DAILY 07/12/13 07/18/20 History Mcg = 1000 Iu)] Fenofibrate Nanocrystallized 145 mg PO HS 07/12/13 07/18/20 History [Tricor] Pioglitazone HCl [Actos] 45 mg PO DAILY 07/12/13 07/18/20 History Simvastatin [Zocor] 20 mg PO HS 07/12/13 07/18/20 History glyBURIDE/METFORMIN HCL 1 tab PO BID 07/12/13 07/18/20 History [Glucovance 2.5-500 mg Tablet] Exenatide Microspheres [Bydureon 2 mg SQ MO 09/19/17 07/18/20 History Pen] Ascorbic Acid [Vitamin C] 500 mg PO DAILY 07/18/20 07/18/20 History Metoclopramide [Reglan] 5 mg PO TID PRN 07/18/20 07/18/20 History Multivitamins, Thera [Multivitamin 1 tab PO DAILY 07/18/20 07/18/20 History (formulary)] Omeprazole [PriLOSEC] 40 mg PO DAILY 07/18/20 07/18/20 History Pyridoxine [Vitamin B-6] 50 mg PO DAILY 07/18/20 07/18/20 History Zinc 50 mg PO DAILY 07/18/20 07/18/20 History Magnesium Oxide [Mag-Ox] 400 mg PO DAILY #30 tablet 07/20/20 Rx Ferrous Sulfate [Feosol] 325 mg PO BID #60 tab 07/21/20 Rx Allergies Allergy/AdvReac Type Severity Reaction Status Date / Time No Known Allergies Allergy Verified 08/05/20 02:52 Physical Exam Vitals: Vital Signs Temp Pulse Resp BP Pulse Ox 08/05/20 04:34 77 20 133/61 97 08/05/20 03:26 98 20 125/63 97 08/05/20 02:49 98.4 F 96 20 133/63 Intake and Output 08/04/20 08/04/20 08/05/20 14:59 22:59 06:59 Other: Weight 81.647 kg Constitutional: No acute distress, conversant, pleasant Eyes: Anicteric sclerae, moist conjunctiva, Pupils equal round reactive to light ENMT: NC/AT Oropharynx clear, no erythema, or exudates Neck: Supple, FROM, no masses, or JVD No carotid bruits No thyromegaly Lungs: Clear to auscultation Clear to percussion Normal respiratory effort, no accessory muscle use Cardiovascular: Heart regular in rate and rhythm, Systolic murmurs, no gallops, or rubs No peripheral edema Abdominal: Soft Nontender, no guarding, rebound or rigidity Abdomen moving with respiration Normoactive bowel sounds No hepatomegaly, No splenomegaly No palpable mass No abdominal wall hernia noted Skin: Normal temperature, tone, texture, turgor No induration No subcutaneous nodules No rash, lesions No ulcers Extremities: No digital cyanosis No clubbing Pedal pulses intact and symmetrical Radial pulses intact and symmetrical No calf tenderness Psychiatric: Alert and oriented to person, place and time Appropriate affect fair judgement Neuro Muscles Strength 5/5 in all 4 extremities Sensation to light touch grossly present throughout Cranial nerves II-XII grossly intact No focal sensory deficits Lymphatics: no palpable cervical or supraclavicular , or inguinal lymph nodes Results CBC & Chem 7: 08/05/20 03:20 08/05/20 03:20 Labs: Abnormal Lab Results - Last 24 Hours (Table) 08/05/20 08/05/20 08/05/20 Range/Units 03:20 03:20 03:20 RBC 3.25 L (3.80-5.40) m/uL Hgb 10.0 L (11.4-16.0) gm/dL Hct 30.2 L (34.0-46.0) % RDW 15.7 H (11.5-15.5) % APTT 19.9 L (22.0-30.0) sec Glucose 164 H (74-99) mg/dL Magnesium 1.5 L (1.6-2.3) mg/dL Total Protein 6.0 L (6.3-8.2) g/dL Assessment and Plan Assessment: Recurrent bleeding per rectum secondary to underlying diverticulosis Nothing by mouth Monitor hemoglobin every 8 hours GI consultation Consider general surgery consultation if patient gets more episodes of bleeding or hemoglobin drops again to evaluate for possible resection Blood transfusion if hemoglobin below 7 or become symptomatic Gentle IV fluid hydration Hypomagnesemia Replace magnesium and follow-up levels Diabetes mellitus Insulin sliding scale Hyperlipidemia Resume home meds CODE STATUS: Full code DVT prophylaxis: Mechanical Discussed with: Patient, ER Anticipated length of stay less than [address]: Home A total of 65 minutes was spent on the care of this complex patient more than 50% of the time was spent in counseling and care coordination.
[2020-08-05 08:27] LABS: Glucose,Whole Blood 157 mg/dL (75-99)
[2020-08-05] MEDS: INSULIN ASPART (NovoLOG) 100 UNIT/ML VIAL SQ SCH ×2 (08:34→16:17)
[2020-08-05] MEDS ORDERED: PANTOPRAZOLE 40 MG/10 ML VIAL IV SCH (09:00)
[2020-08-05] MEDS ORDERED: FERROUS SULFATE 325 MG TAB PO SCH (09:00)
[2020-08-05 09:08] LABS: Basophils % (A) 0 %; Eosinophils # (A) 0.2 k/uL (0-0.7); Eosinophils % (A) 5 %; HCT 28.4 % (34.0-46.0); HGB 8.8 gm/dL (11.4-16.0); Hypochromasia Moderate; Lymphocytes # (A) 1.1 k/uL (1.0-4.8); Lymphocytes % (A) 29 %; MCHC 31.2 g/dL (31.0-37.0); MCV 96.2 fL (80.0-100.0); Mean Platelet Volume 8.7; Monocytes # (A) 0.2 k/uL (0-1.0); Monocytes % (A) 6 %; Neutrophils # (A) 2.3 k/uL (1.3-7.7); Neutrophils % (A) 58 %; Platelet Count 222 k/uL (150-450); RBC 2.95 m/uL (3.80-5.40); RDW 15.9 % (11.5-15.5)
--- NOTE | 2020-08-05 11:20 | P.PN ---
Progress Note - Text Progress Note Date: 08/05/20 Seen and examined again today, no chest pain no abdominal pain no nausea or vomiting. No further bleeding. Continue IV fluid resuscitation, GI consultation. Monitor H&H
--- NOTE | 2020-08-05 14:08 | P.CONS ---
History of Present Illness - Reason for Consult Consult date: 08/05/20 GI bleed Requesting physician: Shakir Tinoco - Chief Complaint GI bleed - History of Present Illness 74-year-old female with a known history of diverticulosis and diabetes mellitus who presented to the hospital for GI bleeding. Patient recently had an admission for diverticular bleed in June 2020. At that time she had multiple episodes of painless bright red blood per rectum. She was significant for colonoscopy on 07/21/20 with findings of severe pandiverticulosis and internal hemorrhoids with no acute bleeding or old blood at that time. Since that time she has been doing well however yesterday she reports 2 episodes of bright red blood per rectum. She reports passing a large amount of blood at that time. She also reports some clots with the episode. She reports no definitive abdominal pain but she did have some cramping with the episode. She denies any nausea or vomiting at this time. Since that time she has had 2 further episodes of GI bleeding but describes them as smaller and darker in color. Laboratory evaluation on presentation significant for lipase 185, WBC 4, hemoglobin 10, platelet count 225,000 with total bilirubin 0.2, pleasant phosphatase 86, AST 23 and ALT 13. Review of Systems REVIEW OF SYSTEMS: CONSTITUTIONAL: Denies any fevers, chills, weight change or fatigue. CARDIOVASCULAR: Denies any chest pain, palpitations high or low blood pressures RESPIRATORY: Denies any shortness of breath, hemoptysis or cough. GENITOURINARY: No dysuria or hematuria. MUSCULOSKELETAL: No weakness reported. SKIN: Denies any new rashes or lesions, jaundice or pallor. PSYCHIATRIC: Denies any depression or anxiety. NEUROLOGY: Denies headache, denies any new focal deficits. EARS/NOSE/THROAT: No recent hearing change, congestion, nasal discharge or sore throat. EYES: No pain in eyes, discharge or change in vision. GASTROINTESTINAL: As per HPI. Past Medical History Past Medical History: Diabetes Mellitus, GERD/Reflux, Hyperlipidemia, Osteoarthritis (OA) Additional Past Medical History / Comment(s): covid + 05/15 - History of Any Multi-Drug Resistant Organisms: None Reported Past Surgical History: Cholecystectomy Additional Past Surgical History / Comment(s): COLONOSCOPY Past Anesthesia/Blood Transfusion Reactions: No Reported Reaction Past Psychological History: No Psychological Hx Reported Smoking Status: Never smoker Past Alcohol Use History: None Reported Past Drug Use History: None Reported - Past Family History Sister(s) Family Medical History: Cancer Additional Family Medical History / Comment(s): Several cancers. Father Family Medical History: Coronary Artery Disease (CAD), Diabetes Mellitus Mother Family Medical History: Coronary Artery Disease (CAD), Diabetes Mellitus Medications and Allergies Home Medications Medication Instructions Recorded Confirmed Type Aspirin 81 mg PO HS 07/12/13 08/05/20 History Cholecalciferol [Vitamin D3 (25 1,000 unit PO DAILY 07/12/13 08/05/20 History Mcg = 1000 Iu)] Fenofibrate Nanocrystallized 145 mg PO HS 07/12/13 08/05/20 History [Tricor] Pioglitazone HCl [Actos] 45 mg PO DAILY 07/12/13 08/05/20 History Simvastatin [Zocor] 20 mg PO HS 07/12/13 08/05/20 History glyBURIDE/METFORMIN HCL 1 tab PO BID 07/12/13 08/05/20 History [Glucovance 2.5-500 mg Tablet] Exenatide Microspheres [Bydureon 2 mg SQ MO 09/19/17 08/05/20 History Pen] Ascorbic Acid [Vitamin C] 500 mg PO DAILY 07/18/20 08/05/20 History Metoclopramide [Reglan] 5 mg PO TID PRN 07/18/20 08/05/20 History Multivitamins, Thera [Multivitamin 1 tab PO DAILY 07/18/20 08/05/20 History (formulary)] Omeprazole [PriLOSEC] 40 mg PO DAILY 07/18/20 08/05/20 History Pyridoxine [Vitamin B-6] 50 mg PO DAILY 07/18/20 08/05/20 History Zinc 50 mg PO DAILY 07/18/20 08/05/20 History Magnesium Oxide [Mag-Ox] 400 mg PO DAILY #30 tablet 07/20/20 08/05/20 Rx Ferrous Sulfate [Feosol] 325 mg PO BID #60 tab 07/21/20 08/05/20 Rx Allergies Allergy/AdvReac Type Severity Reaction Status Date / Time No Known Allergies Allergy Verified 08/05/20 06:58 Physical Exam Vitals: Vital Signs Temp Pulse Resp BP Pulse Ox 08/05/20 11:35 88 16 122/78 98 08/05/20 10:00 20 97 08/05/20 09:00 20 97 08/05/20 08:00 98.4 F 84 20 116/52 97 08/05/20 04:34 77 20 133/61 97 08/05/20 03:26 98 20 125/63 97 08/05/20 02:49 98.4 F 96 20 133/63 Intake and Output 08/04/20 08/05/20 08/05/20 22:59 06:59 14:59 Other: Weight 81.647 kg On physical examination, patient appears comfortable in no apparent distress. HEAD: Normocephalic, atraumatic. EYES: No scleral icterus. No conjunctival injection. MOUTH: No lesions, tongue midline. NECK: Trachea midline, no gross abnormalities. CHEST: Clear to auscultation with no wheezing or rhonchi appreciated. HEART: Regular rate and rhythm. ABDOMEN: Soft, obese. Bowel sounds are positive. No organomegaly. No guarding or rigidity. EXTREMITIES: No pedal edema. SKIN: No rashes, no jaundice. NEUROLOGIC: Alert and oriented x3. No focal deficits. Results CBC & Chem 7: 08/05/20 08:25 08/05/20 03:20 Labs: Abnormal Lab Results - Last 24 Hours (Table) 08/05/20 08/05/20 08/05/20 Range/Units 03:20 03:20 03:20 RBC 3.25 L (3.80-5.40) m/uL Hgb 10.0 L (11.4-16.0) gm/dL Hct 30.2 L (34.0-46.0) % RDW 15.7 H (11.5-15.5) % APTT 19.9 L (22.0-30.0) sec Glucose 164 H (74-99) mg/dL POC Glucose (mg/dL) (75-99) mg/dL Magnesium 1.5 L (1.6-2.3) mg/dL Total Protein 6.0 L (6.3-8.2) g/dL 08/05/20 08/05/20 Range/Units 08:25 08:25 RBC 2.95 L (3.80-5.40) m/uL Hgb 8.8 L (11.4-16.0) gm/dL Hct 28.4 L (34.0-46.0) % RDW 15.9 H (11.5-15.5) % APTT (22.0-30.0) sec Glucose (74-99) mg/dL POC Glucose (mg/dL) 157 H (75-99) mg/dL Magnesium (1.6-2.3) mg/dL Total Protein (6.3-8.2) g/dL Assessment and Plan (1) Diverticulosis Narrative/Plan: 74-year-old female presenting for evaluation of blood per rectum. 2 large episodes prior to presentation and 2 smaller episodes darker in color after she presented to the hospital. Hemoglobin currently 10. Recent admission in June with similar complaints at which time colonoscopy was performed on 07/21/20 with severe pandiverticulosis and internal hemorrhoids noted with no active bleeding or old blood seen at that time. Patient denies any triggers. Suspicion is for recurrent diverticular bleed. Currently hemodynamically stable in the emergency department. Current Visit: Yes Status: Acute Code(s): K57.90 - DVRTCLOS OF INTEST, PART UNSP, W/O PERF OR ABSCESS W/O BLEED SNOMED Code(s): 811435383 (2) Internal hemorrhoids Current Visit: Yes Status: Acute Code(s): K64.8 - OTHER HEMORRHOIDS SNOMED Code(s): 62484160 (3) Lower GI bleed Current Visit: Yes Status: Acute Code(s): K92.2 - GASTROINTESTINAL HEMORRHAGE, UNSPECIFIED SNOMED Code(s): 34893930 Plan: Supportive care Clear liquid diet Continue to monitor hemoglobin and hematocrit and transfuse as needed Continue to monitor stool output Hold any anticoagulation at this time Tagged red blood cell scan ordered Surgical service consulted and defer further management to their service in the setting of recurrent lower GI bleed suspected secondary to diverticulosis Thank you for allowing us to participate in the care of the patient, the GI service will sign off, gastroenterology will not be available at the hospital this weekend and if further evaluation by gastroenterology as required the patient will need transfer as per the primary teams discretion
--- NOTE | 2020-08-05 16:12 | NM ---
EXAMINATION TYPE: NM GI bleeding DATE OF EXAM: 08/05/2020 HISTORY: 74-year-old female GI bleed, right red blood per rectum, diverticulosis. COMPARISON: Correlation CT 07/18/2020 74-year-old female Following administration of 3 ml PYP 22 mCi Tc 99m Sodium Pertechnate. Immediate i mages post injection. 2 hours of imaging were utilized. 30 minutes into the second however imaging, t he patient empties the bathroom. FINDINGS: Normal tracer activity is seen in the blood pool of the abdominal aorta, common iliac arteries, femor al arteries, liver, and spleen on all of the interval images. Later images show accumulation of trace r in the urinary bladder, which is consistent with excreted tracer. At the 45 minute time point, a small focus of tracer activity progressively develops at the right mid abdomen. During the second hour imaging, this focus has resolved and a annual area arises in the lef t mid abdomen just below the spleen. IMPRESSION: The study was interrupted as the patient needed to use the bathroom. This impacts continuity of the s tudy. There is initially a focus that develops in the right mid abdomen, likely mid ascending colon. Subsequently, activity is visualized at the left mid abdomen located below the spleen. Findings could represent either active hemorrhage from the ascending colon with labeled blood passing into the splenic flexure versus 2 sites of bleeding. Further clinical correlation recommended.
--- NOTE | 2020-08-05 17:38 | P.DS ---
Providers Date of admission: 08/05/20 03:49 Expected date of discharge: 08/05/20 Attending physician: Shakir Tinoco MD Consults: 08/05/20 03:49 Consult Physician Routine Consulting Provider: Hugh Shaver Consult Reason/Comments: gib Do you want consulting provider notified?: Yes 08/05/20 12:34 Consult Physician Routine Consulting Provider: Jorgito Davila Consult Reason/Comments: lower GI bleed, diverticulosis Do you want consulting provider notified?: Yes Primary care physician: Indra Olsen MD Hospital Course: HPI: 74-year-old female with diverticulosis, diabetes mellitus Patient comes in due to recurrent episodes of bleeding per rectum she was recently discharged from the hospital July 21 when she was diagnosed with diverticulosis with rectal bleeding and symptomatic anemia patient hemoglobin dropped down to 7 however she declined blood transfusion at that time and preferred to rely on iron supplementation since discharge she's been doing fine she denies any symptoms of shortness of breath or chest pain any dizziness or lightheadedness however today after midnight she had another episode of rectal bleeding for which she decided to come to the hospital. She again denies any chest pain or trouble breathing dizziness or lightheadedness at this time she denies any abdominal pain. Patient is not on any blood thinners or NSAIDs. In the ED hemoglobin was 10 improved from 7.5 at discharge about 2 weeks ago. Hospital course and treatment: Patient was admitted to the hospital with rectal bleeding, she has diverticulosis with recent GI bleed. She was found to have a hemoglobin of 10 in the emergency room. She was evaluated by GI and underwent RBC scan which appears to be abnormal. Patient also had episodes of rectal bleed while in the hospital. She remained hemodynamically stable. With her current bleeding episodes she will benefit from GI evaluation likely needs a scope. We don't have GI coverage over the weekend a bus patient will be transferred to [facility] for GI evaluation Patient Condition at Discharge: Fair Plan - Discharge Summary New Discharge Prescriptions: Continue Cholecalciferol [Vitamin D3 (25 Mcg = 1000 Iu)] 1,000 unit PO DAILY Simvastatin [Zocor] 20 mg PO HS Pioglitazone HCl [Actos] 45 mg PO DAILY glyBURIDE/METFORMIN HCL [Glucovance 2.5-500 mg Tablet] 1 tab PO BID Fenofibrate Nanocrystallized [Tricor] 145 mg PO HS Metoclopramide [Reglan] 5 mg PO TID PRN PRN Reason: Nausea And Vomiting Multivitamins, Thera [Multivitamin (formulary)] 1 tab PO DAILY Omeprazole [PriLOSEC] 40 mg PO DAILY Pyridoxine [Vitamin B-6] 50 mg PO DAILY Magnesium Oxide [Mag-Ox] 400 mg PO DAILY #30 tablet Ascorbic Acid [Vitamin C] 500 mg PO DAILY Zinc 50 mg PO DAILY Ferrous Sulfate [Feosol] 325 mg PO BID #60 tab Discontinued Aspirin 81 mg PO HS Exenatide Microspheres [Bydureon Pen] 2 mg SQ MO Discharge Medication List Cholecalciferol [Vitamin D3 (25 Mcg = 1000 Iu)] 1,000 unit PO DAILY 07/12/13 [History] Fenofibrate Nanocrystallized [Tricor] 145 mg PO HS 07/12/13 [History] Pioglitazone HCl [Actos] 45 mg PO DAILY 07/12/13 [History] Simvastatin [Zocor] 20 mg PO HS 07/12/13 [History] glyBURIDE/METFORMIN HCL [Glucovance 2.5-500 mg Tablet] 1 tab PO BID 07/12/13 [History] Ascorbic Acid [Vitamin C] 500 mg PO DAILY 07/18/20 [History] Metoclopramide [Reglan] 5 mg PO TID PRN 07/18/20 [History] Multivitamins, Thera [Multivitamin (formulary)] 1 tab PO DAILY 07/18/20 [History] Omeprazole [PriLOSEC] 40 mg PO DAILY 07/18/20 [History] Pyridoxine [Vitamin B-6] 50 mg PO DAILY 07/18/20 [History] Zinc 50 mg PO DAILY 07/18/20 [History] Magnesium Oxide [Mag-Ox] 400 mg PO DAILY #30 tablet 07/20/20 [Rx] Ferrous Sulfate [Feosol] 325 mg PO BID #60 tab 07/21/20 [Rx] Follow up Appointment(s)/Referral(s): Indra Olsen MD [Primary Care Provider] - 1-2 days Discharge Disposition: OTHER INSTITUTION NOT DEFINED
[2020-08-05 17:58] LABS: Glucose,Whole Blood 92 mg/dL (75-99)
[2020-08-05 19:26] LABS: Basophils % (A) 1 %; Eosinophils # (A) 0.2 k/uL (0-0.7); Eosinophils % (A) 6 %; HCT 29.6 % (34.0-46.0); HGB 9.1 gm/dL (11.4-16.0); Hypochromasia Moderate; Lymphocytes # (A) 1.4 k/uL (1.0-4.8); Lymphocytes % (A) 37 %; MCH 29.7 pg (25.0-35.0); MCHC 30.6 g/dL (31.0-37.0); Macrocytosis Slight; Mean Platelet Volume 8.1; Monocytes # (A) 0.3 k/uL (0-1.0); Monocytes % (A) 8 %; Neutrophils # (A) 1.8 k/uL (1.3-7.7); Neutrophils % (A) 46 %; Platelet Count 240 k/uL (150-450); RBC 3.05 m/uL (3.80-5.40); RDW 15.8 % (11.5-15.5); WBC 3.9 k/uL (3.8-10.6)
[2020-08-05 19:40] VITALS: BP 92/51; PULSE 91; RESP 14; TEMP 98.3
[2020-08-05 20:02] LABS: HCT 26.7 % (34.0-46.0); HGB 8.6 gm/dL (11.4-16.0); Hypochromasia Moderate; MCH 30.7 pg (25.0-35.0); MCV 95.8 fL (80.0-100.0); Platelet Count 222 k/uL (150-450); RBC 2.79 m/uL (3.80-5.40); RDW 15.7 % (11.5-15.5)
[2020-08-05] MEDS ORDERED: ATORVASTATIN 10 MG TAB PO SCH (21:00)
== END 2020-08-05 20:28 | disposition other institution (70) ==
LOC: EC 02:44 → 6NMEDSUR 03:49
PROVIDERS: ADMIT Internal Medicine; ATTEND Internal Medicine
DX: K57.91 Diverticulosis of intestine, part unspecified, without perforation or abscess with bleeding (principal); D64.9 Anemia, unspecified; K64.8 Other hemorrhoids; E83.42 Hypomagnesemia; E11.9 Type 2 diabetes mellitus without complications; E78.5 Hyperlipidemia, unspecified; Z20.822 Contact with and (suspected) exposure to COVID-19; M19.90 Unspecified osteoarthritis, unspecified site; K21.9 Gastro-esophageal reflux disease without esophagitis; Z79.82 Long term (current) use of aspirin; Z79.84 Long term (current) use of oral hypoglycemic drugs; Z86.16 Personal history of COVID-19; Z90.49 Acquired absence of other specified parts of digestive tract; Z82.49 Family history of ischemic heart disease and other diseases of the circulatory system; Z83.3 Family history of diabetes mellitus; Z80.9 Family history of malignant neoplasm, unspecified
CPT/HCPCS: 96365; 96375; 99285; 36415; 86900; 86901; 80053; 83690; 83735; 84484; 85025; 85027; 85610; 85730; 86850; 87635; 78278; G0378; A9560; J2405; J3475; C9113

== ENCOUNTER 2023-05-08 08:01 | Day surgery (SDC) | payer MEDICARE ==
[2023-05-07 09:24] VITALS: BMI 23.9
[~2023-05-08 08:01] MED LIST changes: -LACTATED RINGERS 1,000 ML IV SCH; +LIDOCAINE 1% (10MG/ML) FOR IV START INTRADERMA PRN; -LIDOCAINE 1% 20 ML VIAL (10MG/ML) FOR IV START INTRADERMA PRN
[2023-05-08] MEDS: LACTATED RINGERS 1,000 ML IV SCH (08:35)
[2023-05-08 08:40] LABS: Glucose,Whole Blood 120 mg/dL (70-110)
[2023-05-08 08:48] VITALS: RESP 16; TEMP 97.4
[2023-05-08] MEDS ORDERED: LIDOCAINE 1% INJ 10MG/ML (20 ML MDV) ONE (09:14)
[2023-05-08] MEDS ORDERED: PROPOFOL 10 MG/ML 20 ML VIAL IV ONE (09:14)
--- NOTE | 2023-05-08 09:29 | P.PCN ---
Date of Procedure: 05/08/23 Procedure(s) Performed: BRIEF HISTORY: Patient is a 77-year-old, pleasant, white female scheduled for an upper endoscopy with a possible dilation as a part of evaluation of dysphagia for the last 4 weeks' duration. She has long-standing history of GERD and has been on Pepcid 20 mg daily.. PROCEDURE PERFORMED: Esophagogastroduodenoscopy with dilation. PREOPERATIVE DIAGNOSIS: Progressive dysphagia to solids of 1 month duration. IV sedation per anesthesia. PROCEDURE: After informed consent was obtained, the patient was brought into the endoscopy unit. IV sedation was administered by Anesthesia under continuous monitoring. Initially the Olympus GIF-140 video endoscope was inserted into the mouth. Esophagus intubated without any difficulty. It was gradually advanced into the distal distal esophagus. A tight stricture was noted in the distal esophagus and the scope couldn't be advanced beyond the stricture. There was one deep ulceration just proximal to the stricture consistent with LA grade C reflux esophagitis. At this time balloon dilation was performed in the distal esophageal stricture using 10-12 mm TTS balloon in a sequential fashion for 30 seconds. Following the dilation with gentle manipulation is able to advance the scope There was stomach and duodenum and carefully examined. The bulb and the second part of the duodenum appeared normal. The scope at this time was withdrawn to the stomach, adequately insufflated with air, and upon careful examination, mucosa of the antrum, body, cardia and the fundus appeared normal. The scope was then withdrawn into the esophagus. Moderate size hiatal hernia noted. The GE junction was located at 35 cm from the incisors. There was one deep ulceration just proximal to the stricture consistent with LA grade C reflux esophagitis. Rest of esophagus appeared normal and the patient tolerated the procedure well. IMPRESSION: 1. Tight distal esophageal stricture status post balloon dilation using 10-12 mm TTS balloon as described above. 2. Ulceration in the distal esophagus consistent with LA grade C reflux esophagitis 3. Moderate size hiatal hernia. RECOMMENDATIONS: The findings of this examination were discussed with the patient as well as her family. She was advised to be on a clear liquid diet for 2 hours. Stop the Pepcid for now and will give her a trial of omeprazole 20 mg daily for severe reflux esophagitis. Following office in 2 weeks..
[2023-05-08 09:49] LABS: Glucose,Whole Blood 112 mg/dL (70-110)
[2023-05-08 10:00] VITALS: BP 131/67; PULSE 71
== END 2023-05-08 10:35 | disposition home or self-care (01) ==
LOC: ORWHC2ENDO 08:01
PROVIDERS: ATTEND Internal Medicine Gastroenterology
DX: K22.2 Esophageal obstruction (principal); K44.9 Diaphragmatic hernia without obstruction or gangrene; K22.10 Ulcer of esophagus without bleeding; K21.9 Gastro-esophageal reflux disease without esophagitis; Z79.899 Other long term (current) drug therapy
CPT/HCPCS: 43249; J2001; J2704; C1726

== ENCOUNTER 2023-07-31 08:46 | Day surgery (SDC) | payer MEDICARE ==
[2023-07-31 09:05] VITALS: RESP 16; TEMP 97.4
[2023-07-31] MEDS: LACTATED RINGERS 1,000 ML IV SCH (09:10)
[2023-07-31] MEDS: IV FLUID CONTINUATION 1,000 ML IV ONE (09:10)
[2023-07-31 09:13] LABS: Glucose,Whole Blood 150 mg/dL (70-110)
[2023-07-31] MEDS ORDERED: LIDOCAINE 1% INJ 10MG/ML (20 ML MDV) ONE (09:15)
[2023-07-31] MEDS ORDERED: PROPOFOL 10 MG/ML 20 ML VIAL IV ONE (09:15)
--- NOTE | 2023-07-31 09:24 | P.PCN ---
Date of Procedure: 07/31/23 Procedure(s) Performed: BRIEF HISTORY: Patient is a 77-year-old, pleasant, white female scheduled for an upper endoscopy as a part of evaluation of progressive dysphagia to solids. She had an EGD with dilation done in April 2023 and was diagnosed with tight distal esophageal stricture with severe reflux esophagitis. She has been on omeprazole 20 mg daily since then.. PROCEDURE PERFORMED: Esophagogastroduodenoscopy with dilation. PREOPERATIVE DIAGNOSIS: History of esophageal stricture and progressive dysphagia to solids. IV sedation per anesthesia. PROCEDURE: After informed consent was obtained, the patient was brought into the endoscopy unit. IV sedation was administered by Anesthesia under continuous monitoring. Initially the Olympus GIF-140 video endoscope was inserted into the mouth. Esophagus intubated without any difficulty. It was gradually advanced into the distal esophagus and there was a tight distal esophageal stricture identified at 40 cm from the incisors. I could not advance the scope into the stomach. At this time I proceeded with balloon dilation using 10 to 12 mm TTS balloon in a sequential fashion for 60 seconds. Following the dilation with gentle pressure I was able to advance the scope into the stomach and duodenum and carefully examined. The bulb and the second part of the duodenum appeared normal. The scope at this time was withdrawn to the stomach, adequately insufflated with air, and upon careful examination, mucosa of the antrum, body, cardia and the fundus appeared normal. The scope was then withdrawn into the esophagus. The GE junction was located at 40 cm from the incisors. There was some oozing noted at the site of dilation. The rest of the esophagus appeared normal. There were no erosions or ulcerations seen and the patient tolerated the procedure well. IMPRESSION: 1. Tight distal esophageal stricture status post balloon dilation using 10 to 12 mm TTS balloon as described above 2. Small hiatal hernia. RECOMMENDATIONS: The findings of this examination were discussed with the patient as well as her family. She was advised to continue with omeprazole 20 mg daily and follow antireflux measures. Continue with clear liquids until lunch. Follow-up in the office in 3 months..
[2023-07-31 09:43] VITALS: BP 122/56; PULSE 84
== END 2023-07-31 10:04 | disposition home or self-care (01) ==
LOC: ORWHC2ENDO 08:46
PROVIDERS: ATTEND Internal Medicine Gastroenterology
DX: K22.2 Esophageal obstruction (principal); K44.9 Diaphragmatic hernia without obstruction or gangrene; K21.9 Gastro-esophageal reflux disease without esophagitis; E11.69 Type 2 diabetes mellitus with other specified complication; E78.5 Hyperlipidemia, unspecified; Z79.899 Other long term (current) drug therapy; Z79.85 Long-term (current) use of injectable non-insulin antidiabetic drugs; Z79.84 Long term (current) use of oral hypoglycemic drugs
CPT/HCPCS: 43249; J2001; J2704; C1726

== ENCOUNTER 2024-03-13 11:44 | Day surgery (SDC) | payer MEDICARE ==
[~2024-03-13 11:44] MED LIST changes: -LIDOCAINE 1% (10MG/ML) FOR IV START INTRADERMA PRN; +SODIUM CHLORIDE 0.9% 1,000 ML IV SCH
[2024-03-13] MEDS: SODIUM CHLORIDE 0.9% 500 ML 500 ML IV ONE (12:39)
[2024-03-13 12:45] VITALS: TEMP 98
[2024-03-13 12:52] LABS: African American GFR (CKD) >90 (>60 ml/min/1.73 sqM); Anion Gap 7 mmol/L; Blood Urea Nitrogen 16 mg/dL (7-17); Calcium 9.7 mg/dL (8.4-10.2); Carbon Dioxide 27 mmol/L (22-30); Chloride 104 mmol/L (98-107); Glucose 134 mg/dL (74-99); Non-African American GFR(CKD) 87 (>60 ml/min/1.73 sqM); Sodium 138 mmol/L (137-145)
[2024-03-13 12:54] LABS: Glucose,Whole Blood 136 mg/dL (70-110)
[2024-03-13 12:57] LABS: Potassium 5.1 mmol/L (3.5-5.1)
[2024-03-13] MEDS ORDERED: PROPOFOL 10 MG/ML 20 ML VIAL IV ONE (13:00)
[2024-03-13] MEDS: BENZOCAINE SPRAY 1 EACH MM ONE (13:13)
[2024-03-13] MEDS ORDERED: DIPHENOX-ATROP 2.5-0.025 MG 1 EACH TAB PO PRN (13:29)
[2024-03-13 13:41] VITALS: RESP 16
[2024-03-13] MEDS: SODIUM CHLORIDE 0.9% 1,000 ML IV ONE (13:45)
--- NOTE | 2024-03-13 13:46 | P.TEE ---
Description of Procedure(s): Procedure performed: Transesophageal Echocardiogram with color flow doppler, pulsed wave doppler and continuous wave doppler, synchronized cardioversion Moderate conscious sedation: Moderate conscious sedation was supplied by anesthesia, see separate report. Complications: none Indications: atrial flutter PROCEDURE: After the risks, benefits and alternatives of the above mentioned procedure was explained in detail with the patient, informed consent was obtained. Patient was brought to the lab in a fasting state. Patient was given sedation by anesthesia, see separate report. The throat was sprayed with Hurricane to anesthetize the throat. A lubricated Omni probe was then introduced into the esophagus and stomach and multiple views were obtained. 2D echo with color flow doppler, pulsed wave doppler and continuous wave doppler was utilized. Agitated saline bubbles were injected to assess for any intra- atrial shunt. The probe was then removed. There was no thrombus noted and therefore patient underwent synchronized cardioversion x 1 with 200J with resultant sinus rhythm. Patient tolerated the procedure well. Patient was transferred to the post procedure area in stable and satisfactory condition. FINDINGS: 1. The aortic valve is tricuspid with mild aortic stenosis and moderate to severe central aortic regurgitation vena contracta 0.5-0.6cm, PISA radius 0.7cm with Nyquist 44, no diastolic flow reversal in the descending aorta all consistent with more moderate aortic regurgitation. 2. The mitral valve appears be normal with mild to moderate regurgitation. 3. Tricuspid valve appears to be normal with mild tricuspid regurgitation. 4. The interatrial septum is intact. No evidence of PFO. 5. Left atrial appendage is free of clot. 6. Left ventricular EF 45% with inferior septal and apical hypokinesis 7. Biatrial enlargement
[2024-03-13 15:01] VITALS: BP 136/71; PULSE 72
[2024-03-13] MEDS ORDERED: NON FORMULARY DRUG (Metformin Hcl [Metformin Hcl] 1,000 MG Tablet) PO SCH (21:00)
[2024-03-13] MEDS ORDERED: AMIODARONE 200 MG TAB PO SCH (21:00)
[2024-03-13] MEDS ORDERED: NON FORMULARY DRUG (Omeprazole 40 MG Capsule.Dr) PO SCH (21:00)
[2024-03-13] MEDS ORDERED: NON FORMULARY DRUG (Simvastatin 20 MG Tab) PO SCH (21:00)
[2024-03-13] MEDS ORDERED: NON FORMULARY DRUG (Fenofibrate Nanocrystallized [Tricor] 145 MG Tablet) PO SCH (21:00)
[2024-03-14] MEDS ORDERED: MULTIVITAMINS, THERA 1 EACH TAB PO SCH (09:00)
[2024-03-14] MEDS ORDERED: FERROUS SULFATE 325 MG TAB PO SCH (09:00)
[2024-03-14] MEDS ORDERED: ASCORBIC ACID 500 MG TAB PO SCH (09:00)
[2024-03-14] MEDS ORDERED: NON FORMULARY DRUG (Empagliflozin [Jardiance] 25 MG Tablet) PO SCH (09:00)
[2024-03-14] MEDS ORDERED: MAGNESIUM OXIDE 400 MG TAB PO SCH (09:00)
[2024-03-14] MEDS ORDERED: RIVAROXABAN 20 MG TAB PO SCH (09:00)
[2024-03-14] MEDS ORDERED: NON FORMULARY DRUG (Cholecalciferol 1,000 UNIT Tab) PO SCH (09:00)
[2024-03-18] MEDS ORDERED: NON FORMULARY DRUG (Tirzepatide [Mounjaro] 5 MG/0.5 ML Pen.Injctr) SQ SCH (13:29)
== END 2024-03-13 15:25 | disposition home or self-care (01) ==
LOC: OR 11:44
PROVIDERS: ATTEND Internal Medicine
DX: I35.0 Nonrheumatic aortic (valve) stenosis (principal); I48.92 Unspecified atrial flutter; I51.7 Cardiomegaly; K21.9 Gastro-esophageal reflux disease without esophagitis; K58.9 Irritable bowel syndrome, unspecified; E78.2 Mixed hyperlipidemia; E11.9 Type 2 diabetes mellitus without complications; F17.200 Nicotine dependence, unspecified, uncomplicated; Z79.84 Long term (current) use of oral hypoglycemic drugs; Z79.899 Other long term (current) drug therapy; Z82.49 Family history of ischemic heart disease and other diseases of the circulatory system
CPT/HCPCS: 93312; 93320; 93325; 92960; 80048; J2704

== ENCOUNTER → 2024-09-18 | Outpatient (CLI) | payer MEDICARE ==
[2024-09-19 02:05] LABS: Basophils # (A) 0.02 X 10*3/uL (0.00-0.10); Basophils % (A) 0.3 %; Eosinophils # (A) 0.45 X 10*3/uL (0.04-0.35); Eosinophils % (A) 7.3 %; HCT 41.9 % (37.2-46.3); HGB 13.1 g/dL (12.0-15.0); Immature Grans, Automated 0.30 %; Lymphocytes # (A) 1.37 X 10*3/uL (0.90-5.00); Lymphocytes % (A) 22.1 %; MCH 30.1 pg (27.0-32.0); MCHC 31.3 g/dL (32.0-37.0); MCV 96.3 FL (80.0-97.0); Monocytes # (A) 0.68 X 10*3/uL (0.20-1.00); Monocytes % (A) 11.0 %; NRBC Per 100 WBC 0 X 10*3/uL (0.00-0.01); Neutrophils # (A) 3.65 X 10*3/uL (1.80-7.70); Neutrophils % (A) 59.0 %; Platelet Count 225 X 10*3/uL (140-440); RBC 4.35 X 10*6/uL (4.10-5.20); RDW 13.3 % (11.5-14.5); WBC 6.19 X 10*3/uL (4.50-10.00)
[2024-09-19 02:11] LABS: Anion Gap 10.20 mmol/L (4.00-12.00); Blood Urea Nitrogen 10.2 mg/dL (9.0-27.0); Carbon Dioxide 26.8 mmol/L (21.6-31.8); Chloride 102 mmol/L (96-109); Potassium 5.0 mmol/L (3.5-5.5); Sodium 139 mmol/L (135-145)
== END | disposition home or self-care (01) ==
LOC: LABPAT 14:05
PROVIDERS: ATTEND Internal Medicine Clinical Cardiac Electrophysiology
DX: Z01.812 Encounter for preprocedural laboratory examination (principal); I47.19 Other supraventricular tachycardia
CPT/HCPCS: 80051; 82565; 84520; 85025

== ENCOUNTER 2024-09-22 08:50 | Day surgery (SDC) | payer MEDICARE ==
[2024-09-17 11:27] VITALS: BMI 23.0
[~2024-09-22 08:50] MED LIST changes: +HYDROmorphone 0.5 MG/0.5 ML SYRINGE IVP PRN; +MIDAZOLAM 2 MG/2 ML VIAL IV PRN; -SODIUM CHLORIDE 0.9% 1,000 ML IV SCH
[2024-09-22 09:33] LABS: Glucose,Whole Blood 128 mg/dL (70-110)
[2024-09-22] MEDS: SODIUM CHLORIDE 0.9% 1,000 ML IV SCH ×2 (10:03→10:04)
[2024-09-22] MEDS: LACTATED RINGERS 1,000 ML IV SCH (10:03)
[2024-09-22 10:15] LABS: African American GFR (CKD) >90 (>60 ml/min/1.73 sqM); Anion Gap 8 mmol/L; Blood Urea Nitrogen 15 mg/dL (7-17); Calcium 9.6 mg/dL (8.4-10.2); Carbon Dioxide 26 mmol/L (22-30); Chloride 103 mmol/L (98-107); Glucose 122 mg/dL (74-99); Non-African American GFR(CKD) 85 (>60 ml/min/1.73 sqM); Sodium 137 mmol/L (137-145)
[2024-09-22 10:21] LABS: Potassium 5.3 mmol/L (3.5-5.1)
[2024-09-22] MEDS ORDERED: SUCCINYLCHOLINE CHLORIDE 200 MG/10 ML VIAL IV ONE (11:07)
[2024-09-22] MEDS ORDERED: PROPOFOL 10 MG/ML 20 ML VIAL IV ONE (11:07)
[2024-09-22] MEDS ORDERED: MIDAZOLAM 2 MG/2 ML VIAL ONE (11:07)
[2024-09-22] MEDS ORDERED: PHENYLEPHRINE 10 MG/ML VIAL ONE (11:07)
[2024-09-22] MEDS ORDERED: ISOPROTERENOL 250 MCG/1.25 ML SYR IV ONE (11:07)
[2024-09-22] MEDS ORDERED: fentaNYL (PF) 50 MCG/ML 2 ML AMP ONE (11:07)
[2024-09-22] MEDS ORDERED: ROCURONIUM 10 MG/ML (5 ML VIAL) IV ONE (11:07)
[2024-09-22] MEDS ORDERED: NEOSTIGMINE 1 MG/ML 10 ML VIAL ONE (11:07)
[2024-09-22] MEDS ORDERED: GLYCOPYRROLATE 0.2 MG/ML 2 ML VIAL ONE (11:07)
[2024-09-22] MEDS: HEPARIN SODIUM (1,000 UNIT/ML) 1,000 UNIT in SODIUM CHLORIDE 0.9% 1,000 ML IRRIGATION ONE (11:14)
[2024-09-22] MEDS: IV FLUID CONTINUATION 1,000 ML IV ONE (11:14)
--- NOTE | 2024-09-22 11:47 | P.EPPROC ---
- EP Procedure Note Electrophysiology Procedure Note: This is Dr. Perry dictating an H/P on this patient The patient was interviewed and examined IMPRESSION / ASSESSMENT: Atrial tachycardia, symptomatic with shortness of breath Twelve-lead EKG at that time showed upright signal in V1 and negative in the inferior leads but with a W-shaped pattern, 2-1 atrial tachycardia ventricular rate 150 beats a minute Initially treated with oral amiodarone with electrical cardioversion Amiodarone DC'd since April Normal LV size and function Mild aortic stenosis with moderate aortic regurgitation Stress test normal PLAN: Diagnostic EP study and induction of atrial tachycardia. If there is no inducible atrial tachycardia we will proceed with a flutter ablation, as the likely mechanism of her atrial tachycardia HPI Patient has had a 2-1 atrial tachycardia with RVR with symptoms of shortness of breath. Initially treated with amiodarone but this is being discontinued She has been on anticoagulation She denies any fever chills cough No pulmonary symptoms No cardiac symptoms suggest chest discomfort syncope or undue shortness of b reath in the last week or so ROS: No fever chills or rigors, no cough, phlegm or expectoration, no nausea, vomiting or diarrhea, no hematuria, dysuria, no musculoskeletal complaints, no strokes or seizures, no skin lesions. EXAMINATION: Afebrile, pulse is 67, blood pressure 138/67 mmHg Normal heart sounds Normal breath REVIEW OF LABS, ECG & MEDICAL DATA Simvastatin, fenofibrate, Jardiance, metformin, Mounjaro, Xarelto Potassium 5.3 sodium 137 creatinine 0.7 and normal TSH of 0.8
[2024-09-22] MEDS: LIDOCAINE 1% INJ 10MG/ML (20 ML MDV) SQ ONE (12:02)
[2024-09-22] MEDS: HEPARIN SODIUM,PORCINE 10,000 UNIT in SODIUM CHLORIDE 0.9% 1,000 ML IRRIGATION ONE (12:06)
[2024-09-22] MEDS: LACTATED RINGERS 1,000 ML IV ONE (14:40)
--- NOTE | 2024-09-22 15:16 | P.EPPROC ---
- EP Procedure Note Electrophysiology Procedure Note: Indication for procedure 2-1 atrial tachycardia, symptomatic, likely atrial flutter Final diagnosis Successful ablation for typical atrial flutter Inducible atrial tachycardia with concentric activation along the coronary sinus with a cycle length of 290 milliseconds, likely second tachycardia We were able to induce this tachycardia only once and it could never be reinduced again despite Isopril and atrial extrastimulation with double extrastimuli Induced with double extrastimuli at 400/200/200 ms during Isuprel washout Detais Patient was brought to the EP lab in a fasting state. Written informed consent was obtained prior to the procedure. Venous sheaths were placed in the right left femoral veins. Difficult venous access, extra time taken. Venous access obtained from the right femoral vein. Catheter and wire placed from the right femoral vein into the iliac veins and into the femoral vein and then under this guidance left-sided access obtained in the left femoral vein. Additional time required Sinus cycle length 859 ms, VA interval 170 ms, QRS 108 ms and QT interval 403 ms AH 106 ms and HV interval 35 ms Sinus node recovery times were 1364 and 12 9 7 ms VA Wenckebach block in the baseline state greater than 600 ms AV node Wenckebach block 380 ms Atrial extrastimulation performed from the coronary sinus from 2 different sites Ventricular extrastimulation performed Burst stimulation performed from the coronary sinus High dose Isopril started and when the dose was reduced to 2 mics, subsequently with double extrastimuli from the mid coronary sinus poles at 400\200\200 ms, and atrial tachycardia with a cycle length of 290 ms was induced. Long RP tachycardia Onset with a long VA interval. Ventricular pacing to entrain the tachycardia resulted in termination with ventricular pacing. The tachycardia reinduced very briefly at a slower cycle length and then's terminated ending with the V signal spontaneously. Thereafter the tachycardia was completely noninducible despite multiple attempts with Isopril on as well as of as well as during the washout.. Multiple coronary sinus folds was stimulated. High right atrial extrastimulation performed. Triple extrastimuli performed Review of the atrial tachycardia showed that the onset was with a long VA interval. It was a long RP tachycardia. Ventricular pacing initially resulted in dissociation of the tachycardia therefore ruling out orthodromic reentry. At that time high right atrial capture was not present in the HRA. Ventricular pacing at that time resulted in VA block consistent with the fact that AV otto reentry was unlikely. The most likely diagnosis was an atrial tachycardia that could not be reinduced with EP study. However this is different from the 2-1 atrial tachycardia that we had seen clinically, likely atrial flutter A VISI go long sheath was placed. Intracardiac echo was placed 3D electroanatomic mapping was performed Cavotricuspid isthmus was defined An ablation catheter was placed within the VISI go sheath and radiofrequency ablation for typical atrial flutter was performed with complete line of block. Noncapture noted along the RF line at high output. Differential pacing revealed bidirectional block Activation mapping performed using a Penta ray catheter Complete line of block made Patient Toller the procedure well without any acute complications Vascade closure devices applied to both groins
--- NOTE | 2024-09-22 15:19 | P.PRLE ---
RE: Vanda Coulter Dear Alex Vanda Coulter underwent a diagnostic EP study for typical atrial flutter and successful ablation was performed with confirmed bidirectional block across the RF line. However she also had a second inducible atrial tachycardia, but this tachycardia was induced only once. Despite a fairly aggressive protocol both on and off Isopril, atrial stimulation could not reinduce the second tachycardia. At this time I would simply observe her and if she has further palpitations then consider an atrial tachycardia ablation Thank you for entrusting me with the care of the patient Warm regards Sincerely Jonathon Perry
[2024-09-22] MEDS: ACETAMINOPHEN IV (For NPO) 1,000 MG in EMPTY BAG 1 BAG IVPB ONE (16:02)
[2024-09-22 17:38] LABS: Glucose,Whole Blood 116 mg/dL (70-110)
[2024-09-22 19:39] LABS: Glucose,Whole Blood 145 mg/dL (70-110)
[2024-09-22] MEDS: metFORMIN 500 MG TAB PO SCH (21:11)
[2024-09-22] MEDS: PANTOPRAZOLE 40 MG TABLET PO SCH (21:11)
[2024-09-22] MEDS: FENOFIBRATE 160 MG TAB PO SCH (21:11)
[2024-09-22] MEDS: ATORVASTATIN 10 MG TAB PO SCH (21:11)
[2024-09-23] MEDS: ACETAMINOPHEN TAB 325 MG TAB PO PRN (00:08)
--- NOTE | 2024-09-23 04:32 | P.DS ---
Providers Attending physician: Jonathon Perry Primary care physician: [facility] Hospital Course: Discharge summary Patient is resting comfortably in bed. No chest discomfort dizziness or lightheadedness Mild discomfort in the groins but no hematoma no swelling Blood pressure 131/63 mmHg pulse rate in the 60s Ejection systolic murmur over the precordium Clear lungs No swelling in the groins Twelve-lead EKG shows sinus rhythm normal WI narrow QRS normal ST segments left anterior fascicular block Final impression Typical atrial flutter status post successful ablation with bidirectional block with differential pacing Second atrial tachycardia with a cycle length 290 ms, concentric activation in the coronary sinus. Likely atrial tachycardia Dissociated with ventricular pacing but finally LV pacing resulted in termination of the tachycardia. However the patient's Wenckebach block on Isopril did not match the cycle length of tachycardia, unlikely to be atypical AV otto reentrant tachycardia Left anterior fascicular block Plan Continue medical treatment for now, continue anticoagulation with Xarelto If she has further atrial tachycardia in the future we may consider the ablation at that time. At this study, her second tachycardia could only be induced once and was nonreproducible despite a very detailed EP study Successful radiofrequency ablation for typical atrial flutter was performed Plan - Discharge Summary Discharge Rx Participant: No New Discharge Prescriptions: No Action RX: Cholecalciferol [Vitamin D3 (25 Mcg = 1000 Iu)] 5,000 unit PO DAILY RX: Simvastatin [Zocor] 20 mg PO HS RX: Fenofibrate Nanocrystallized [Tricor] 145 mg PO HS RX: Multivitamins, Thera [Multivitamin (formulary)] 1 tab PO DAILY RX: Magnesium Oxide [Mag-Ox] 400 mg PO DAILY #30 tablet RX: Tirzepatide [Mounjaro] 5 mg SQ WE RX: Empagliflozin [Jardiance] 25 mg PO DAILY RX: metFORMIN HCL 1,000 mg PO BID RX: Rivaroxaban [Xarelto] 20 mg PO DAILY Vit C/E/Zn/Coppr/Lutein/Zeaxan [Preservision Areds 2 Softgel] 1 each PO BID RX: Ascorbic Acid [Vitamin C] 500 mg PO DAILY RX: Omeprazole [PriLOSEC] 40 mg PO BID RX: Ferrous Sulfate [Feosol] 325 mg PO DAILY RX: Diphenoxylate HCl/Atropine [Lomotil 2.5-0.025 mg Tablet] 1 tab PO QID PRN PRN Reason: loose stools Discharge Medication List RX: Cholecalciferol [Vitamin D3 (25 Mcg = 1000 Iu)] 5,000 unit PO DAILY 07/12/13 [History] RX: Fenofibrate Nanocrystallized [Tricor] 145 mg PO HS 07/12/13 [History] RX: Simvastatin [Zocor] 20 mg PO HS 07/12/13 [History] RX: Ascorbic Acid [Vitamin C] 500 mg PO DAILY 07/18/20 [History] RX: Multivitamins, Thera [Multivitamin (formulary)] 1 tab PO DAILY 07/18/20 [History] RX: Magnesium Oxide [Mag-Ox] 400 mg PO DAILY #30 tablet 07/20/20 [Rx] RX: Empagliflozin [Jardiance] 25 mg PO DAILY 05/07/23 [History] RX: Tirzepatide [Mounjaro] 5 mg SQ WE 05/07/23 [History] RX: Ferrous Sulfate [Feosol] 325 mg PO DAILY 07/30/23 [History] RX: Omeprazole [PriLOSEC] 40 mg PO BID 07/30/23 [History] RX: Diphenoxylate HCl/Atropine [Lomotil 2.5-0.025 mg Tablet] 1 tab PO QID PRN 03/11/24 [History] RX: metFORMIN HCL 1,000 mg PO BID 03/11/24 [History] RX: Rivaroxaban [Xarelto] 20 mg PO DAILY 03/13/24 [History] Vit C/E/Zn/Coppr/Lutein/Zeaxan [Preservision Areds 2 Softgel] 1 each PO BID 09/17/24 [History]
--- NOTE | 2024-09-23 04:35 | P.HPCAR ---
History of Present Illness This is Dr. Perry dictating an H/P on this patient The patient was interviewed and examined IMPRESSION / ASSESSMENT: Atrial tachycardia, symptomatic with shortness of breath Twelve-lead EKG at that time showed upright signal in V1 and negative in the inferior leads but with a W-shaped pattern, 2-1 atrial tachycardia ventricular rate 150 beats a minute Initially treated with oral amiodarone with electrical cardioversion Amiodarone DC'd since April Normal LV size and function Mild aortic stenosis with moderate aortic regurgitation Stress test normal PLAN: Diagnostic EP study and induction of atrial tachycardia. If there is no inducible atrial tachycardia we will proceed with a flutter ablation, as the likely mechanism of her atrial tachycardia HPI Patient has had a 2-1 atrial tachycardia with RVR with symptoms of shortness of breath. Initially treated with amiodarone but this is being discontinued She has been on anticoagulation She denies any fever chills cough No pulmonary symptoms No cardiac symptoms suggest chest discomfort syncope or undue shortness of breath in the last week or so ROS: No fever chills or rigors, no cough, phlegm or expectoration, no nausea, vomiting or diarrhea, no hematuria, dysuria, no musculoskeletal complaints, no strokes or seizures, no skin lesions. EXAMINATION: Afebrile, pulse is 67, blood pressure 138/67 mmHg Normal heart sounds Normal breath REVIEW OF LABS, ECG & MEDICAL DATA Simvastatin, fenofibrate, Jardiance, metformin, Mounjaro, Xarelto Potassium 5.3 sodium 137 creatinine 0.7 and normal TSH of 0.8 Physical Exam Vitals: Vital Signs Temp Pulse Pulse Pulse Resp BP BP 09/23/24 02:22 98.2 F 68 17 131/63 09/22/24 19:30 98.4 F 70 123/66 09/22/24 19:14 98.4 F 65 17 139/67 09/22/24 18:31 66 147/68 09/22/24 18:30 68 14 146/66 09/22/24 17:30 65 131/67 09/22/24 17:00 98.1 F 64 131/65 09/22/24 16:28 64 16 122/56 09/22/24 16:20 66 16 128/61 09/22/24 16:05 66 16 116/69 09/22/24 16:00 69 16 09/22/24 15:46 74 16 07/29/25 15:31 73 16 09/22/24 15:16 98.3 F 76 18 09/22/24 09:59 98.2 F 67 16 149/65 BP BP Pulse Ox 09/23/24 02:22 98 09/22/24 19:30 98 09/22/24 19:14 97 09/22/24 18:31 96 09/22/24 18:30 100 09/22/24 17:30 98 09/22/24 17:00 98 09/22/24 16:28 98 09/22/24 16:20 99 09/22/24 16:05 98 09/22/24 16:00 123/66 95 09/22/24 15:46 125/74 96 09/22/24 15:31 132/62 100 09/22/24 15:16 144/67 100 09/22/24 09:59 138/67 99 Intake and Output 09/22/24 09/22/24 09/23/24 14:59 22:59 06:59 Intake Total 1101 190 Balance 1101 190 Intake: IV 1101 100 Oral 90 Other: # Voids 2 Weight 58.6 kg 58.6 kg Past Medical History Past Medical History: Atrial Flutter, Cancer, Diabetes Mellitus, GERD/Reflux, Osteoarthritis (OA) Additional Past Medical History / Comment(s): IBS, HIATAL HERNIA, difficulty swallowing, takes cholesterol med prophylatically per pt, History of Any Multi-Drug Resistant Organisms: None Reported Past Surgical History: Cholecystectomy Additional Past Surgical History / Comment(s): COLONOSCOPY, EGD, stRetching of esophagus. Hx of skin cancer to face removed. TRAVON/CARDIOVERSION-02/2024 Past Anesthesia/Blood Transfusion Reactions: No Reported Reaction Past Psychological History: No Psychological Hx Reported Additional Psychological History / Comment(s): Pt resides with her spouse. She is independent. Smoking Status: Never smoker Past Alcohol Use History: None Reported Past Drug Use History: None Reported - Past Family History Sister(s) Family Medical History: Cancer Additional Family Medical History / Comment(s): Several cancers. Father Family Medical History: Coronary Artery Disease (CAD), Diabetes Mellitus Mother Family Medical History: Coronary Artery Disease (CAD), Diabetes Mellitus Physical Examination Vital Signs Temp Pulse Pulse Pulse Resp BP BP 09/23/24 02:22 98.2 F 68 17 131/63 09/22/24 19:30 98.4 F 70 123/66 09/22/24 19:14 98.4 F 65 17 139/67 09/22/24 18:31 66 147/68 09/22/24 18:30 68 14 146/66 09/22/24 17:30 65 131/67 09/22/24 17:00 98.1 F 64 131/65 09/22/24 16:28 64 16 122/56 09/22/24 16:20 66 16 128/61 09/22/24 16:05 66 16 116/69 09/22/24 16:00 69 16 09/22/24 15:46 74 16 09/22/24 15:31 73 16 09/22/24 15:16 98.3 F 76 18 09/22/24 09:59 98.2 F 67 16 149/65 BP BP Pulse Ox 09/23/24 02:22 98 09/22/24 19:30 98 09/22/24 19:14 97 09/22/24 18:31 96 09/22/24 18:30 100 09/22/24 17:30 98 09/22/24 17:00 98 09/22/24 16:28 98 09/22/24 16:20 99 09/22/24 16:05 98 09/22/24 16:00 123/66 95 09/22/24 15:46 125/74 96 09/22/24 15:31 132/62 100 09/22/24 15:16 144/67 100 09/22/24 09:59 138/67 99 Intake and Output 09/22/24 09/22/24 09/23/24 14:59 22:59 06:59 Intake Total 1101 190 Balance 1101 190 Intake: IV 1101 100 Oral 90 Other: # Voids 2 Weight 58.6 kg 58.6 kg Results 09/22/24 09:10 Comprehensive Metabolic Panel 09/22/24 Range/Units 09:10 Sodium 137 (137-145) mmol/L Potassium 5.3 H (3.5-5.1) mmol/L Chloride 103 (98-107) mmol/L Carbon Dioxide 26 (22-30) mmol/L BUN 15 (7-17) mg/dL Creatinine 0.67 (0.52-1.04) mg/dL Glucose 122 H (74-99) mg/dL Calcium 9.6 (8.4-10.2) mg/dL Current Medications Generic Name Dose Route Start Last Admin Trade Name Freq PRN Reason Stop Dose Admin Acetaminophen 650 mg 09/22/24 15:12 09/23/24 00:08 Acetaminophen Tab 325 Mg Tab PO 10/22/24 15:11 650 mg Q6HR PRN Administration Mild Pain (Scale 1 to 3) Atorvastatin Calcium 10 mg 09/22/24 21:00 09/22/24 21:11 Atorvastatin 10 Mg Tab PO 10/22/24 20:59 10 mg HS LYN Administration Dapagliflozin 10 mg 09/23/24 09:00 Dapagliflozin Propanediol 10 Mg Tablet PO 10/23/24 08:59 DAILY LYN Fenofibrate 160 mg 09/22/24 21:00 09/22/24 21:11 Fenofibrate 160 Mg Tab PO 10/22/24 20:59 160 mg HS LYN Administration Sodium Chloride 1,000 mls @ 50 mls/hr 09/22/24 05:50 09/22/24 10:04 Saline 0.9% IV 10/22/24 05:49 50 mls/hr .Q20H LYN Administration Lactated Ringer's 1,000 mls @ 20 mls/hr 09/22/24 05:50 09/22/24 10:03 Lactated Ringers IV 10/22/24 05:49 Not Given .Q24H LYN Sodium Chloride 1,000 mls @ 50 mls/hr 09/22/24 05:50 09/23/24 01:27 Saline 0.9% IV 10/22/24 05:49 Not Given .Q20H LYN Magnesium Oxide 400 mg 09/23/24 09:00 Magnesium Oxide 400 Mg Tab PO 10/23/24 08:59 DAILY LYN Metformin HCl 1,000 mg 09/22/24 21:00 09/22/24 21:11 Metformin 500 Mg Tab PO 1,000 mg BID-W/MEALS LYN Administration Pantoprazole Sodium 40 mg 09/22/24 21:00 09/22/24 21:11 Pantoprazole 40 Mg Tablet PO 10/22/24 20:59 40 mg BID LYN Administration Rivaroxaban 20 mg 09/23/24 09:00 Rivaroxaban 20 Mg Tab PO 10/23/24 08:59 DAILY LYN Protocol Sodium Chloride 12 ml 09/22/24 15:12 Sodium Chloride 0.9% Flush 10 Ml Syringe IV 10/22/24 15:11 Q12HR PRN Line Flush Intake and Output 09/22/24 09/22/24 09/23/24 14:59 22:59 06:59 Intake Total 1101 190 Balance 1101 190 Intake: IV 1101 100 Oral 90 Other: # Voids 2 Weight 58.6 kg 58.6 kg Patient Weight 09/23/24 06:59 Weight 58.6 kg 09/22/24 09:10
--- NOTE | 2024-09-23 04:39 | P.EPPROC ---
- EP Procedure Note Electrophysiology Procedure Note: Long procedure, extended duration Vascular access was very difficult Left femoral artery access was difficult. Right femoral access was obtained and a guidewire was placed across to the left femoral vein. Using this as the guide successful access was obtained in the left side The EP study was also of an extended duration While successful atrial flutter ablation was performed, the second tachycardia was very difficult to induce. We were able to induce this once and perform ventricular pacing which terminated the tachycardia but the initial few beats dissociated the SVT. Onset was with a long ND interval, one-to-one conduction at 290 ms cycle length. But the VA Wenckebach block was 380 ms at the same level of Isopril infusion Despite multiple attempts with up to triple extrastimuli from multiple sites in the high right atrium and the coronary sinus, on high-dose Isopril, low-dose Isopril, Isuprel washout, the second tachycardia could not be reinduced for further evaluation of its mechanism Likely atrial tachycardia rather than atypical AV otto reentry with concentric activation. Orthodromic reentry excluded
[2024-09-23 05:45] LABS: Glucose,Whole Blood 109 mg/dL (70-110)
[2024-09-23 08:13] VITALS: BP 139/64; PULSE 65; RESP 16; TEMP 97.6
[2024-09-23] MEDS: MAGNESIUM OXIDE 400 MG TAB PO SCH (08:43)
[2024-09-23] MEDS: DAPAGLIFLOZIN PROPANEDIOL 10 MG TABLET PO SCH (08:43)
[2024-09-23] MEDS: RIVAROXABAN 20 MG TAB PO SCH (08:44)
== END 2024-09-23 10:31 | disposition home or self-care (01) ==
LOC: CATHEP 08:50 → 6NMEDSUR 14:46 → CATHEP 09-23 10:31
PROVIDERS: ATTEND Internal Medicine Clinical Cardiac Electrophysiology
DX: I47.19 Other supraventricular tachycardia (principal); I44.4 Left anterior fascicular block; I44.1 Atrioventricular block, second degree; I48.3 Typical atrial flutter; E11.9 Type 2 diabetes mellitus without complications; K58.9 Irritable bowel syndrome, unspecified; M19.90 Unspecified osteoarthritis, unspecified site; Z79.01 Long term (current) use of anticoagulants; Z79.84 Long term (current) use of oral hypoglycemic drugs; Z79.899 Other long term (current) drug therapy
CPT/HCPCS: 93005; 93623; 93662; 93653; 86900; 86901; 80048; 84443; 86850; C1769 ×3; C1894 ×2; C1766; C1760 ×2; C1730 ×2; C1731; C1759; C1732; J1644 ×2; J2003; J0131